=== PATIENT | female | born 1945 | race Caucasian/White ===

== ENCOUNTER → 2017-05-04 | Outpatient (CLI) | payer OTHER ==
[2015-02-18 11:59] VITALS: BP 140/65
--- NOTE | 2017-05-04 14:36 | MG ---
HISTORY: Bilateral breast carcinoma status post lumpectomy Bilateral digital diagnostic mammography with CAD. Comparison: Multiple previous exams dating back to August 22, 2013 FINDINGS: Bilateral CC and MLO projections of the right and left breast were obtained. Heterogeneously dense fibroglandular tissue is seen to be present without significant interval change. No new or developi ng suspicious architectural distortion, mass or clustered microcalcifications can be observed to sug gest malignancy. Stable lumpectomy scars are noted. No skin thickening or nipple retraction is appr eciated. No pathological lymphadenopathy can be identified. Benign-appearing calcifications are no paola within the right and left breast. IMPRESSION: NO RADIOGRAPHIC EVIDENCE OF MALIGNANCY. ACR CATEGORY 2 - benign findings. FOLLOW-UP EXAM 1 YEAR. Diagnostic CAD was utilized and reviewed. * 0 (ZERO) - ASSESSMENT INCOMPLETE; ADDITIONAL IMAGING IS NEEDED. * 1/1 (ONE) - NEGATIVE. * 2/II (TWO) - BENIGN FINDINGS. * 3/III (THREE) - PROBABLY BENIGN FINDING; SHORT INTERVAL FOLLOW-UP SUGGESTED. * 4/IV (FOUR) - SUSPICIOUS ABNORMALITY; BIOPSY SHOULD BE CONSIDERED. * 5/V (FIVE) - HIGHLY SUSPICIOUS OF MALIGNANCY; BIOPSY SHOULD BE PERFORMED. A NEGATIVE X-RAY REPORT SHOULD NOT DELAY BIOPSY IF A DOMINANT OR CLINICALLY SUSPICIOUS MASS IS PRESENT; 4 TO 8 PERCENT OF CANCERS ARE NOT IDENTIFIED BY X-RAY. A NEG ATIVE REPORT MAY REINFORCE THE CLINICAL IMPRESSION. ADENOSIS AND DENSE BREASTS MAY OBSCURE AN UNDER LYING NEOPLASM. Reported By:
== END ==
LOC: RAD 13:35
PROVIDERS: ATTEND Nurse Practitioner Family
DX: Z85.3 Personal history of malignant neoplasm of breast (principal)
CPT/HCPCS: 77066

== ENCOUNTER 2017-05-11 08:57 | Day surgery (SDC) | payer OTHER ==
[2017-05-11] MEDS ORDERED: D5 LR 1000 ML 1,000 ML IV ONE (09:12)
[2017-05-11] MEDS ORDERED: DIPRIVAN VIAL 20 ML ONE (10:47)
[2017-05-11 11:28] VITALS: BP 120/62
== END 2017-05-11 11:25 | disposition home or self-care (01) ==
LOC: SURG1 08:57
PROVIDERS: ATTEND Internal Medicine Gastroenterology
PROC: 0DB68ZX Excision of Stomach, Via Natural or Artificial Opening Endoscopic, Diagnostic (ICD-10-PCS; principal; 2017-05-11 12:15)
PROC: 0DB88ZX Excision of Small Intestine, Via Natural or Artificial Opening Endoscopic, Diagnostic (ICD-10-PCS; principal; 2017-05-11 12:15)
PROC: 0DJ08ZZ Inspection of Upper Intestinal Tract, Via Natural or Artificial Opening Endoscopic (ICD-10-PCS; principal; 2017-05-11 12:15)
PROC: 0D757ZZ Dilation of Esophagus, Via Natural or Artificial Opening (ICD-10-PCS; principal; 2017-05-11 12:15)
DX: R13.19 Other dysphagia (principal); R10.13 Epigastric pain; R11.2 Nausea with vomiting, unspecified; K21.9 Gastro-esophageal reflux disease without esophagitis; K25.9 Gastric ulcer, unspecified as acute or chronic, without hemorrhage or perforation; K29.60 Other gastritis without bleeding; K20.8 Other esophagitis; K22.2 Esophageal obstruction; K22.4 Dyskinesia of esophagus
CPT/HCPCS: 99100; A4217; J3490; J7120

== ENCOUNTER → 2017-09-19 | Outpatient (CLI) | payer OTHER ==
[2017-09-19 10:02] LABS: ALANINE AMINOTRANSFERASE 39 Units/L (12-78); ALBUMIN 3.7 g/dL (3.4-5.0); ALKALINE PHOSPHATASE 69 Units/L (46-116); ASPARTATE AMINO TRANSFERASE 22 Units/L (15-37); BLOOD UREA NITROGEN 35 mg/dL (7-18); CALCIUM 9.1 mg/dL (8.5-10.1); CARBON DIOXIDE 28.5 mmol/L (21-32); CHLORIDE 107 mmol/L (98-107); COR NA(FOR HYPERGLY) 145 mmol/L (136-145); CREATININE 1.12 mg/dL (0.55-1.02); SODIUM 143 mmol/L (136-145); eGFR BLACK RACES > 60 (>60); eGFR NON BLACK RACES 51 (>60)
[2017-09-19 10:12] LABS: BASOPHILS % (AUTO) 0.8 % (0.2-1.0); EOSINOPHILS # (AUTO) 1.4 x10^3/uL (0.0-0.2); HEMATOCRIT 29.1 % (36.0-47.0); HEMOGLOBIN 9.8 g/dL (12.0-16.0); LYMPHOCYTES # (AUTO) 1.2 X10^3/uL (1.3-2.9); LYMPHOCYTES % (AUTO) 19.5 % (21.0-51.0); MEAN CORPUSCULAR HEMOGLOBIN 31.6 pg (27.0-34.0); MEAN CORPUSCULAR HGB CONC 33.5 g/dL (33.0-35.0); MEAN CORPUSCULAR VOLUME 94.3 fL (80.0-100.0); MEAN PLATELET VOLUME 9.9 fL (7.4-11.0); MONOCYTES # (AUTO) 0.3 x10^3/uL (0.3-0.8); MONOCYTES % (AUTO) 4.3 % (0.0-13.0); NEUTROPHILS # (AUTO) 3.2 x10^3/uL (2.2-4.8); NEUTROPHILS % (AUTO) 52.4 % (42.0-75.0); PLATELET COUNT 163 X10^3/uL (150.0-450.0); RED BLOOD COUNT 3.09 X10^6/uL (3.5-5.4); RED CELL DISTRIBUTION WIDTH 14.4 % (11.6-16.5)
[2017-09-19 10:17] LABS: IRON 71 ug/dL (50-175); TOTAL IRON BINDING CAPACITY 446 ug/dL (250-450)
[2017-09-19 10:41] LABS: PLATELET MORPHOLOGY COMMENT NORMAL (NORMAL)
== END ==
LOC: LAB 09:01
PROVIDERS: ATTEND Internal Medicine Hematology & Oncology
DX: C50.112 Malignant neoplasm of central portion of left female breast (principal); D64.9 Anemia, unspecified; E55.9 Vitamin D deficiency, unspecified
CPT/HCPCS: 36415; 80053; 82306; 82728; 83540; 83550; 85025

== ENCOUNTER → 2017-09-20 | Outpatient (CLI) | payer OTHER ==
[2017-09-20 10:00] LABS: BASOPHILS # (AUTO) 0.1 X10^3/uL (0.0-0.1); BASOPHILS % (AUTO) 0.9 % (0.2-1.0); EOSINOPHILS # (AUTO) 1.5 x10^3/uL (0.0-0.2); EOSINOPHILS % (AUTO) 23.7 % (0.9-2.9); HEMATOCRIT 31.3 % (36.0-47.0); HEMOGLOBIN 10.4 g/dL (12.0-16.0); LYMPHOCYTES # (AUTO) 1.2 X10^3/uL (1.3-2.9); LYMPHOCYTES % (AUTO) 20.1 % (21.0-51.0); MEAN CORPUSCULAR HEMOGLOBIN 31.4 pg (27.0-34.0); MEAN CORPUSCULAR HGB CONC 33.2 g/dL (33.0-35.0); MEAN CORPUSCULAR VOLUME 94.4 fL (80.0-100.0); MEAN PLATELET VOLUME 9.7 fL (7.4-11.0); MONOCYTES # (AUTO) 0.2 x10^3/uL (0.3-0.8); MONOCYTES % (AUTO) 3.8 % (0.0-13.0); NEUTROPHILS # (AUTO) 3.2 x10^3/uL (2.2-4.8); NEUTROPHILS % (AUTO) 51.5 % (42.0-75.0); PLATELET COUNT 181 X10^3/uL (150.0-450.0); RED BLOOD COUNT 3.31 X10^6/uL (3.5-5.4); RED CELL DISTRIBUTION WIDTH 14.6 % (11.6-16.5); WHITE BLOOD COUNT 6.2 X10^3/uL (3.6-10.0)
[2017-09-20 10:01] LABS: APPEARANCE,URINE HAZY (CLEAR); BACTERIA,URINE TRACE /HPF (NEGATIVE); BILIRUBIN,URINE NEGATIVE (NEGATIVE); BLOOD/HEMOGLOBIN,URINE NEGATIVE (NEGATIVE); COLOR,URINE YELLOW (YELLOW); GLUCOSE, URINE 1+ (NEGATIVE); KETONES,URINE NEGATIVE (NEGATIVE); LEUKOCYTE ESTERASE ,URINE 2+ (NEGATIVE); NITRITES,URINE NEGATIVE (NEGATIVE); PH,URINE 6.5 (5.0 - 8.0); PROTEIN,URINE 1+ (NEGATIVE); RBC,URINE 0-2 /HPF (NEGATIVE); SQUAMOUS EPITHELIAL CELL,UR FEW /HPF (NEGATIVE); UROBILINOGEN,URINE NORMAL (NORMAL)
[2017-09-20 10:07] LABS: ALANINE AMINOTRANSFERASE 40 Units/L (12-78); ALBUMIN 4.2 g/dL (3.4-5.0); ALKALINE PHOSPHATASE 75 Units/L (46-116); ASPARTATE AMINO TRANSFERASE 24 Units/L (15-37); BLOOD UREA NITROGEN 29 mg/dL (7-18); CALCIUM 9.3 mg/dL (8.5-10.1); CHLORIDE 105 mmol/L (98-107); CHOL/HDL RATIO 5.4 (0.0-5.0); CHOLESTEROL 200 mg/dL (0-200); COR NA(FOR HYPERGLY) 144 mmol/L (136-145); CREATININE 0.93 mg/dL (0.55-1.02); CREATININE,URINE 70.79 mg/dL (30-125); HDL CHOLESTEROL 37 mg/dL (40-60); PHOSPHORUS 3.9 mg/dL (2.6-4.7); SODIUM 141 mmol/L (136-145); TOTAL PROTEIN 8.1 g/dL (6.4-8.2); TRIGLYCERIDES 194 mg/dL (0-150); eGFR BLACK RACES > 60 (>60); eGFR NON BLACK RACES > 60 (>60)
[2017-09-20 10:34] LABS: PLATELET MORPHOLOGY COMMENT NORMAL (NORMAL)
--- NOTE | 2017-09-22 11:16 | US ---
HISTORY: Abnormal renal function test Study: Renal ultrasound: Multiplanar ultrasonographic examination of the kidneys was performed Comparison: None Findings: Overall examination of the kidneys reveal them to be of normal size and echogenicity. There is mild focal cortical scarring in both kidneys. No evidence of hydronephrosis is noted. Right kidney: 10.1 cm in length by 4.8 x 4.7 cm. There is what appears to be an intra-cortical simp le cyst measuring 17 mm in maximum dimension. Left kidney: 11.3 cm in length by 4.7 x 4.9 cm. There appear to be 2 cystic structures, 1 inferiorl y located that appears to be mildly complex measuring 2.3 x 1.7 by 3.0 cm. The other measures 3.5 x 1.6 x 2.7 cm. Both of these appear to be mildly complex. Short-term follow-up is recommended. IMPRESSION: 1. There appear to be 2 mildly complex predominantly anechoic structures in the left kidney, most li roque mildly complex cyst. Further evaluation with follow-up in 3 months is recommended. If there is clinical concern MRI or CT scan without contrast may be of assistance. 2. Simple appearing cyst in the right kidney. 3. Mild focal cortical scarring in both kidneys. Reported By:
[2017-09-24 07:05] LABS: PARATHYROID HORMONE INT 24 pg/mL (15-65)
[2017-09-24 07:06] LABS: ANTI-NUCLEAR ANTIBODY TEST None Detected (None Detected); VITAMIN D 25 OH 34 ng/mL (30-80)
== END | disposition home or self-care (01) | DRG 642 ==
LOC: RAD 09:14
PROVIDERS: ATTEND Internal Medicine Nephrology
DX: E78.4 Other hyperlipidemia (principal); E11.9 Type 2 diabetes mellitus without complications; R94.4 Abnormal results of kidney function studies; I10 Essential (primary) hypertension; N28.1 Cyst of kidney, acquired
CPT/HCPCS: 36415; 76770; 80053; 80061; 81001; 82306; 82570; 83516; 83970; 84100; 84157; 85025; 86021; 86308

== ENCOUNTER 2017-09-21 07:26 | Day surgery (SDC) | payer OTHER ==
[2017-09-21] MEDS ORDERED: D5 LR 1000 ML 1,000 ML IV ONE (07:33)
[2017-09-21] MEDS ORDERED: DIPRIVAN VIAL 20 ML ONE (08:51)
[2017-09-21 09:39] VITALS: BP 120/60
== END 2017-09-21 09:40 | disposition home or self-care (01) ==
LOC: SURG1 07:26
PROVIDERS: ATTEND Internal Medicine Gastroenterology
PROC: 0D757ZZ Dilation of Esophagus, Via Natural or Artificial Opening (ICD-10-PCS; principal; 2017-09-21 12:45)
PROC: 0DB68ZX Excision of Stomach, Via Natural or Artificial Opening Endoscopic, Diagnostic (ICD-10-PCS; principal; 2017-09-21 12:45)
PROC: 0DJ08ZZ Inspection of Upper Intestinal Tract, Via Natural or Artificial Opening Endoscopic (ICD-10-PCS; principal; 2017-09-21 12:45)
DX: R10.13 Epigastric pain (principal); R13.19 Other dysphagia; K25.9 Gastric ulcer, unspecified as acute or chronic, without hemorrhage or perforation; K22.2 Esophageal obstruction; K22.4 Dyskinesia of esophagus; K29.60 Other gastritis without bleeding; K21.9 Gastro-esophageal reflux disease without esophagitis
CPT/HCPCS: 99100; A4217; J3490; J7120

== ENCOUNTER → 2017-10-23 | Outpatient (CLI) | payer OTHER ==
[2017-10-23 08:20] LABS: BASOPHILS # (AUTO) 0.1 X10^3/uL (0.0-0.1); BASOPHILS % (AUTO) 0.8 % (0.2-1.0); EOSINOPHILS # (AUTO) 1.9 x10^3/uL (0.0-0.2); EOSINOPHILS % (AUTO) 23.9 % (0.9-2.9); HEMATOCRIT 34.1 % (36.0-47.0); HEMOGLOBIN 11.2 g/dL (12.0-16.0); LYMPHOCYTES # (AUTO) 1.7 X10^3/uL (1.3-2.9); LYMPHOCYTES % (AUTO) 22.4 % (21.0-51.0); MEAN CORPUSCULAR HEMOGLOBIN 30.7 pg (27.0-34.0); MEAN CORPUSCULAR HGB CONC 32.7 g/dL (33.0-35.0); MEAN CORPUSCULAR VOLUME 93.9 fL (80.0-100.0); MONOCYTES # (AUTO) 0.3 x10^3/uL (0.3-0.8); MONOCYTES % (AUTO) 4.4 % (0.0-13.0); NEUTROPHILS # (AUTO) 3.8 x10^3/uL (2.2-4.8); NEUTROPHILS % (AUTO) 48.5 % (42.0-75.0); PLATELET COUNT 182 X10^3/uL (150.0-450.0); RED BLOOD COUNT 3.63 X10^6/uL (3.5-5.4); RED CELL DISTRIBUTION WIDTH 14.2 % (11.6-16.5); WHITE BLOOD COUNT 7.8 X10^3/uL (3.6-10.0)
[2017-10-23 08:50] LABS: BAND NEUTROPHILS % 1 % (0-10); PLATELET MORPHOLOGY COMMENT NORMAL (NORMAL)
== END ==
LOC: LAB 07:52
PROVIDERS: ATTEND Internal Medicine Hematology & Oncology
DX: C50.112 Malignant neoplasm of central portion of left female breast (principal)
CPT/HCPCS: 36415; 85025

== ENCOUNTER → 2018-01-11 | Outpatient (CLI) | payer OTHER, MEDICAID ==
--- NOTE | 2018-01-11 10:24 | RAD ---
STUDY: CHEST, TWO VIEWS History: Shortness of breath. Comparison: March 30, 2015. Findings: The trachea is midline. The lungs are clear of consolidation, significant infiltrate, effusion, or pn eumothorax. The cardiac silhouette, mediastinum and osseous structures are unremarkable. Several cheko gical clips project over the lower neck and mediastinum. IMPRESSION: 1. No evidence of acute cardiopulmonary abnormality. Reported By:
== END ==
LOC: RAD 09:50
PROVIDERS: ATTEND Nurse Practitioner Family
DX: R06.02 Shortness of breath (principal); J43.8 Other emphysema
CPT/HCPCS: 71046

== ENCOUNTER → 2018-01-17 | Outpatient (CLI) | payer OTHER, MEDICAID ==
--- NOTE | 2018-01-17 10:28 | US ---
HISTORY: Renal cysts. History of breast cancer. Study: Renal ultrasound: Multiplanar ultrasonographic examination of the kidneys urinary bladder wa s performed. Comparison: 10/21/2016 Findings: Overall examination of the kidneys reveal them to be of normal echogenicity and echotexture as well a s size. There are several cysts seen within both kidneys. No solid masses are identified. There is mild focal cortical scarring involving both kidneys. Right kidney: 11.5 cm in length by 5.2 x 7.5 cm. There appears to be a simple cortical cyst involvi ng the right kidney measuring approximately 14 mm in maximum dimension. There appears to be a 2nd me asuring approximately 14 mm as well. Left kidney: 11.2 cm in length by 6.4 x 7.4 cm. There are a couple of cysts present. There also ap pears to be dilated calices. This is not evident on the prior examination. One cyst measures approx imately 28 mm in maximum dimension. The other cyst measures approximately 3 cm in maximum dimension. The urinary bladder as visualized is normal. IMPRESSION: 1. There are simple cysts seen in both kidneys. 2. There appears to been interval development of caliectasis in the left kidney versus markedly hypo echoic appearing pyramids. Follow-up CT of the abdomen using renal protocol is recommended. Reported By:
== END ==
LOC: RAD 08:56
PROVIDERS: ATTEND Nurse Practitioner Family
DX: R93.421 Abnormal radiologic findings on diagnostic imaging of right kidney (principal); R93.422 Abnormal radiologic findings on diagnostic imaging of left kidney
CPT/HCPCS: 76770

== ENCOUNTER 2019-08-07 16:08 | Inpatient (IN) ==
[2019-08-07] MEDS ORDERED: DUONEB 0.5 MG/3 MG NEB PRN (19:14)
[2019-08-07] MEDS ORDERED: ZOFRAN TAB 4 MG PO PRN (19:14)
[2019-08-07 19:48] LABS: ALBUMIN 3.1 g/dL (3.4-5.0); BASOPHILS % (AUTO) 0.4 % (0.2-1.0); CALCIUM 7.9 mg/dL (8.5-10.1); CARBON DIOXIDE 27.7 mmol/L (21-32); COR CA(FOR HYPOALB) 8.6 mg/dL (8.5-10.1); CREATININE 1.89 mg/dL (0.55-1.02); EOSINOPHILS % (AUTO) 14.2 % (0.9-2.9); HEMATOCRIT 20.1 % (36.0-47.0); LYMPHOCYTES % (AUTO) 14.5 % (21.0-51.0); MEAN CORPUSCULAR HEMOGLOBIN 32.1 pg (27.0-34.0); MEAN CORPUSCULAR HGB CONC 33.7 g/dL (33.0-35.0); MEAN CORPUSCULAR VOLUME 95.3 fL (80.0-100.0); MEAN PLATELET VOLUME 9.3 fL (7.4-11.0); MONOCYTES # (AUTO) 0.5 x10^3/uL (0.3-0.8); NEUTROPHILS # (AUTO) 4.4 x10^3/uL (2.2-4.8); NEUTROPHILS % (AUTO) 63.9 % (42.0-75.0); PLATELET COUNT 107 X10^3/uL (150.0-450.0); RED BLOOD COUNT 2.11 X10^6/uL (3.5-5.4); RED CELL DISTRIBUTION WIDTH 15.3 % (11.6-16.5); TOTAL PROTEIN 6.5 g/dL (6.4-8.2); WHITE BLOOD COUNT 6.8 X10^3/uL (3.6-10.0)
[2019-08-07 19:56] LABS: HEMOGLOBIN 6.8 g/dL (12.0-16.0)
[2019-08-07] MEDS ORDERED: STERILE WATER IRRIGATION IR ONE (19:59)
[2019-08-07 20:17] VITALS: BMI 28.5
[2019-08-07] MEDS ORDERED: NS 250 ML IV 250 ML IV ONE (21:35)
[2019-08-07] MEDS ORDERED: AMBIEN ONE (21:54)
[2019-08-07] MEDS: LASIX PO SCH (22:02)
[2019-08-07] MEDS: FOLIC ACID TAB 1 MG PO SCH (22:02)
[2019-08-07] MEDS: COLACE CAP 100 MG PO SCH (22:02)
[2019-08-07] MEDS: REQUIP PO SCH (22:03)
[2019-08-07] MEDS: HumuLIN R SC PRN (22:03)
[2019-08-07] MEDS: MILK OF MAGNESIA PO SCH (22:03)
[2019-08-07] MEDS: PROTONIX INJ 40 MG VIAL IVP SCH (22:03)
[2019-08-07] MEDS: PERCOCET TAB 5/325 MG PO PRN (22:04)
[2019-08-07] MEDS: AMBIEN PO PRN (22:06)
[2019-08-07] MEDS: NEURONTIN CAP 100 MG PO SCH (22:06)
[2019-08-08 05:00] LABS: BASOPHILS # (AUTO) 0.1 X10^3/uL (0.0-0.1); BASOPHILS % (AUTO) 0.9 % (0.2-1.0); EOSINOPHILS # (AUTO) 1.1 x10^3/uL (0.0-0.2); EOSINOPHILS % (AUTO) 14.1 % (0.9-2.9); HEMATOCRIT 26.3 % (36.0-47.0); HEMOGLOBIN 8.9 g/dL (12.0-16.0); LYMPHOCYTES % (AUTO) 12.1 % (21.0-51.0); MEAN CORPUSCULAR HEMOGLOBIN 30.7 pg (27.0-34.0); MEAN CORPUSCULAR HGB CONC 33.7 g/dL (33.0-35.0); MONOCYTES # (AUTO) 0.5 x10^3/uL (0.3-0.8); MONOCYTES % (AUTO) 6.2 % (0.0-13.0); NEUTROPHILS # (AUTO) 5.3 x10^3/uL (2.2-4.8); NEUTROPHILS % (AUTO) 66.7 % (42.0-75.0); PLATELET COUNT 103 X10^3/uL (150.0-450.0); RED BLOOD COUNT 2.89 X10^6/uL (3.5-5.4); RED CELL DISTRIBUTION WIDTH 16.8 % (11.6-16.5); WHITE BLOOD COUNT 7.9 X10^3/uL (3.6-10.0)
[2019-08-08] MEDS: PERCOCET TAB 5/325 MG PO PRN ×5 (05:12→21:48)
[2019-08-08] MEDS: NEURONTIN CAP 100 MG PO SCH ×3 (05:12→21:48)
[2019-08-08 05:14] LABS: ALBUMIN 3.1 g/dL (3.4-5.0); CALCIUM 7.9 mg/dL (8.5-10.1); CARBON DIOXIDE 25.8 mmol/L (21-32); COR CA(FOR HYPOALB) 8.6 mg/dL (8.5-10.1); CREATININE 1.8 mg/dL (0.55-1.02); TOTAL PROTEIN 6.5 g/dL (6.4-8.2)
[2019-08-08] MEDS: HumuLIN R SC PRN ×4 (05:36→21:50)
[2019-08-08 06:14] LABS: BILIRUBIN,URINE NEGATIVE (NEGATIVE); BLOOD/HEMOGLOBIN,URINE NEGATIVE (NEGATIVE); GLUCOSE, URINE 4+ (NEGATIVE); KETONES,URINE NEGATIVE (NEGATIVE); LEUKOCYTE ESTERASE ,URINE 1+ (NEGATIVE); NITRITES,URINE NEGATIVE (NEGATIVE); PROTEIN,URINE NEGATIVE (NEGATIVE); UROBILINOGEN,URINE NORMAL (NORMAL)
[2019-08-08 06:16] LABS: APPEARANCE,URINE CLEAR (CLEAR); COLOR,URINE YELLOW (YELLOW)
[2019-08-08] MEDS: LASIX PO SCH ×2 (06:17→16:56)
[2019-08-08 06:19] LABS: BACTERIA,URINE NEGATIVE /HPF (NEGATIVE); RBC,URINE NONE SEEN /HPF (0-3); RENAL EPITHELIAL CELLS,URINE RARE /HPF (NEGATIVE); SQUAMOUS EPITHELIAL CELL,UR RARE /HPF (NEGATIVE)
[2019-08-08] MEDS: MILK OF MAGNESIA PO SCH ×2 (09:25→21:47)
[2019-08-08] MEDS: ZESTORETIC 10/ 12.5MG PO SCH (09:25)
[2019-08-08] MEDS: MIRALAX POWDER (1 DOSE 17 G) PO SCH (09:25)
[2019-08-08] MEDS: FOLIC ACID TAB 1 MG PO SCH ×2 (09:25→21:47)
[2019-08-08] MEDS: ARTIFICIAL TEARS DROPS AFFEYE SCH (09:35)
[2019-08-08 11:47] LABS: HEMATOCRIT 25.9 % (36.0-47.0); HEMOGLOBIN 8.8 g/dL (12.0-16.0)
[2019-08-08] MEDS ORDERED: LOVENOX INJ 30 MG SYR SC SCH (13:00)
--- NOTE | 2019-08-08 16:30 | DR.H&P ---
H&P - History & Physical for Day of: H&P Date: 08/07/19 - Chief Complaint Chief Complaint: STATUS POST MASTECTOMY, SEVERE WEAKNESS, SHORTNESS OF BREATH - History of Present Illness History of Present Illness: IS A 74 YEAR OLD PATIENT OF OURS WHO PRESENTED TO THE HOSPITAL A DIRECT ADMISSION TODAY FOR SEVERE WEAKNESS AND SHORTNESS OF BREATH FOLLOWING A RIGHT MASTECTOMY AND SPLEEN BIOPSY ONE DAY PRIOR. SHE HAS A PMH OF CAD, CHF, HYPERLIPIDEMIA, HTN, PULMONARY HTN, COPD, SLEEP APNEA, ASTHMA, GERD, PUD, RENAL DISEASE, DIABETES, HTN, GOITER, ANEMIA, AND BREAST CANCER. SHE HAD A LEFT BREAST PARTIAL MASTECTOMY FIVE YEARS AGO AND A RIGHT MASTECTOMY YESTERDAY IN [place], [place]. SHE HAS A SERENA DRAIN IN PLACE. ON ARRIVAL TO THE HOSPITAL, VITALS WERE 98.9-116-22-96%-149/65. LABS WERE OBTAINED. ABNORMAL LAB VALUES INCLUDE THE FOLLOWING: RBC 2.11, RBC 6.8, HCT 20.1, PLT COUNT 107, BUN 40, CREATININE 1.89, GLUCOSE 425, CALCIUM 7.9, ALBUMIN 3.1. WE WILL TYPE, CROSSMATCH, AND TRANSFER TWO UNITS OF PACKED RED BLOOD CELLS. OTHERWISE, WE WILL REVIEW HER HOME MEDICATIONS, FOLLOW UP WITH AM LABS AND CONTINUE TO MONITOR. - Past Medical History Past Medical History: Anemia, Arthritis, COPD, Coronary Artery Disease, Diabetes, Dyslipidemia, GERD, Hypertension, Hypothyroidism, PUD, Sleep Apnea Additional Medical History: Hx Breast Ca, Restless Leg Syndrome, Pulmonary HTN, Hx Goiter - Past Surgical History Surgical History: Cholecystectomy, Mastectomy, Thyroidectomy Additional Surgical History: Hx Mastectomy, Colonoscopy - Family History Family Medical History: Diabetes Mellitus, Cancer, Heart Failure, Hypertension - Social History Alcohol Use: None Drug Use: None Prescription drug monitoring program results: PDMP was not reviewed - Medications Home Medications: No Known Drug Allergies Allergy (Verified 09/21/17 07:49) CONTINUE taking the following medications albuterol sulfate 2.5 mg INHALATION Q6H PRN 08/07/19 [History] albuterol sulfate [Ventolin HFA] 2 puff INHALATION Q4HR PRN 08/07/19 [History] anastrozole [Arimidex] 1 mg PO DAILY 08/07/19 [History] atorvastatin [Lipitor] 40 mg PO DAILY 08/07/19 [History] apedlobnhm-ouehuud-mltxpjfu 1 cap PO BID PRN 08/07/19 [History] cephalexin [Keflex] 250 mg PO HS 08/07/19 [History] clonazepam [Klonopin] 0.5 mg PO BID PRN 08/07/19 [History] cyanocobalamin (vitamin B-12) 1,000 mcg IM MONTHLY 08/07/19 [History] dextran 70-hypromellose [Artificial Tears (PF)] 2 drp OPHTHALMIC (EYE) DAILY 08/07/19 [History] ergocalciferol (vitamin D2) [Vitamin D2] 50,000 unit PO QWEEK 08/07/19 [History] fenofibrate nanocrystallized [Triglide] 160 mg PO QHS 08/07/19 [History] ferrous sulfate 325 mg PO BID 08/07/19 [History] fluticasone furoate-vilanterol [Breo Ellipta] 1 inh INHALATION BID 08/07/19 [History] furosemide [Lasix] 20 mg PO BID 08/07/19 [History] gabapentin [Neurontin] 100 mg PO TID 08/07/19 [History] ipratropium-albuterol 3 ml INHALATION Q6H PRN 08/07/19 [History] levothyroxine 175 mcg PO DAILY 08/07/19 [History] lisinopril-hydrochlorothiazide 1 tab PO DAILY 08/07/19 [History] metformin [Glucophage] 1,000 mg PO BID 08/07/19 [History] ondansetron HCl [Zofran] 8 mg PO Q8H PRN 08/07/19 [History] oxycodone-acetaminophen [Percocet] 1 tab PO Q4H PRN 08/07/19 [History] pantoprazole [Protonix] 40 mg PO QHS 08/07/19 [History] polyethylene glycol 3350 17 g PO DAILY 08/07/19 [History] promethazine 25 mg PO Q6H PRN 08/07/19 [History] qqctbfmeuuenkma-dqfkflf-JM 10 ml PO Q6H PRN 08/07/19 [History] ropinirole 0.5 mg PO HS 08/07/19 [History] sennosides-docusate sodium [Senna with Docusate Sodium] 1 tab PO DAILY 08/07/19 [History] sitagliptin [Januvia] 50 mg PO DAILY 08/07/19 [History] vitamin D3-folic acid [Folvite-D] 1 cap PO BID 08/07/19 [History] zolpidem 10 mg PO QHS PRN 08/07/19 [History] - Review of Systems Constitutional: Weakness Eyes: No Symptoms Reported ENT: No Symptoms Reported Respiratory: Shortness of Breath, SOB with Excertion Cardiovascular: No Symptoms Reported Gastrointestinal: Abdominal Pain Genitourinary: No Symptoms Reported Musculoskeletal: No Symptoms Reported Skin: Wound (RIGHT SIDE BREAST, STATUS POST MASTECTOMY. SERENA DRAIN IN PLACE ) Neurological: Weakness - Physical Exam Vital Signs: Temperature 98.6 F Pulse Rate [Left Radial] 92 Pulse Rate 91 Respiratory Rate 20 Blood Pressure [Right Arm] 149/65 Blood Pressure [Left Arm] 118/60 Blood Pressure 163/68 O2 Sat by Pulse Oximetry 98 Oriented: Normal Eyes: Normal Ear: Normal Nose: Normal Throat: Normal Respiratory: Diminished Throughout Cardiovascular: Tachycardia : Normal Auscultation: Bowel Sounds: Normal Palpation: Normal Tenderness: Suprapubic, Mild, Other (DISTENTION ). negative: Rebound, Guarding, Rigidity Skin: Red, Tender, Wound (RIGHT SIDE BREAST, STATUS POST MASTECTOMY. SERENA DRAIN IN PLACE ) Musculoskeletal: Normal Psychiatric: Normal Mood Description: Calm Affect: Normal Speech Pattern: Clear - Assessment/Plan (1) Anemia Qualifiers: Anemia type: iron deficiency Iron deficiency anemia type: chronic blood loss Qualified Code(s): D50.0 - Iron deficiency anemia secondary to blood loss (chronic) Status: Acute Plan: TRANSFUSE 2 UNITS PRBC (2) Shortness of breath Status: Acute (3) Status post mastectomy Qualifiers: Laterality: right Qualified Code(s): Z90.11 - Acquired absence of right breast and nipple Status: Acute Plan: SERENA DRAIN, CONTINUE TO MONITOR (4) Diabetes mellitus, type 2 Qualifiers: Diabetes mellitus fdc insulin use: with terminal press operator use Diabetes mellitus complication status: with other specified complication Qualified Code(s): E11.69 - Type 2 diabetes mellitus with other specified complication; Z 79.4 - intermediate (current) use of insulin Status: Chronic Plan: HUMULIN R SLIDING SCALE, CONTINUE TO MONITOR - Review Patient was examined?: Yes - Allergies Allergies/Adverse Reactions: Allergies Allergy/AdvReac Type Severity Reaction Status Date / Time No Known Drug Allergies Allergy Verified 09/21/17 07:49
[2019-08-08] MEDS: SYNTHROID 175 mcg TAB PO SCH (16:56)
[2019-08-08 17:24] LABS: HEMATOCRIT 26.3 % (36.0-47.0)
[2019-08-08] MEDS: REQUIP PO SCH (21:47)
[2019-08-08] MEDS: COLACE CAP 100 MG PO SCH (21:48)
[2019-08-08] MEDS: AMBIEN PO PRN (21:49)
[2019-08-08] MEDS: PROTONIX INJ 40 MG VIAL IVP SCH (21:49)
[2019-08-08 23:27] LABS: HEMATOCRIT 24.5 % (36.0-47.0); HEMOGLOBIN 8.6 g/dL (12.0-16.0)
[2019-08-09] MEDS: HumuLIN R SC PRN ×4 (02:08→21:26)
[2019-08-09] MEDS: NEURONTIN CAP 100 MG PO SCH ×3 (06:12→21:21)
[2019-08-09] MEDS: LASIX PO SCH ×2 (06:13→16:50)
--- NOTE | 2019-08-09 06:23 | RAD ---
HISTORY: Abdominal distension Study: Two views of the abdomen Comparison: CT 01/26/2018 FINDINGS/IMPRESSION: Bowel gas pattern is nonspecific and nonobstructive. No dilated intestinal loops are seen. There is scattered retained stool in the colon. There are chronic degenerative changes of the lumbosacral spine and hips. Cholecystectomy clips are noted. Reported By:
[2019-08-09 06:24] LABS: BASOPHILS % (AUTO) 0.6 % (0.2-1.0); EOSINOPHILS % (AUTO) 14.9 % (0.9-2.9); HEMOGLOBIN 8.6 g/dL (12.0-16.0); LYMPHOCYTES # (AUTO) 1.2 X10^3/uL (1.3-2.9); LYMPHOCYTES % (AUTO) 17.4 % (21.0-51.0); MEAN CORPUSCULAR HEMOGLOBIN 31.3 pg (27.0-34.0); MEAN CORPUSCULAR HGB CONC 34.4 g/dL (33.0-35.0); MEAN CORPUSCULAR VOLUME 91.1 fL (80.0-100.0); MEAN PLATELET VOLUME 9.2 fL (7.4-11.0); MONOCYTES # (AUTO) 0.5 x10^3/uL (0.3-0.8); MONOCYTES % (AUTO) 7.6 % (0.0-13.0); NEUTROPHILS % (AUTO) 59.5 % (42.0-75.0); PLATELET COUNT 120 X10^3/uL (150.0-450.0); RED BLOOD COUNT 2.74 X10^6/uL (3.5-5.4); RED CELL DISTRIBUTION WIDTH 16.5 % (11.6-16.5); WHITE BLOOD COUNT 6.7 X10^3/uL (3.6-10.0)
[2019-08-09 06:32] LABS: ALBUMIN 3.1 g/dL (3.4-5.0); CALCIUM 8.3 mg/dL (8.5-10.1); CARBON DIOXIDE 27.9 mmol/L (21-32); CREATININE 1.84 mg/dL (0.55-1.02); TOTAL PROTEIN 6.6 g/dL (6.4-8.2)
[2019-08-09] MEDS: MIRALAX POWDER (1 DOSE 17 G) PO SCH (08:21)
[2019-08-09] MEDS: MILK OF MAGNESIA PO SCH ×2 (08:22→21:19)
[2019-08-09] MEDS: FOLIC ACID TAB 1 MG PO SCH ×2 (08:22→21:19)
[2019-08-09] MEDS: ARTIFICIAL TEARS DROPS AFFEYE SCH (08:22)
[2019-08-09] MEDS: ZESTORETIC 10/ 12.5MG PO SCH (08:22)
[2019-08-09] MEDS ORDERED: KLONOPIN TAB 0.5 MG PO PRN (10:42)
[2019-08-09] MEDS ORDERED: FIORICET TAB PO PRN (10:42)
[2019-08-09] MEDS ORDERED: VITAMIN D (1.25MG) PO SCH (10:45)
[2019-08-09] MEDS ORDERED: [UNRECOGNIZED DRUG - OTHER] PO SCH (11:00)
[2019-08-09] MEDS: PERCOCET TAB 5/325 MG PO PRN ×3 (11:20→21:22)
[2019-08-09] MEDS: LEVEMIR SC SCH ×2 (11:20→21:13)
[2019-08-09] MEDS: LIPITOR TAB 40 MG PO SCH (13:37)
[2019-08-09] MEDS: TRICOR TAB 160 MG PO SCH (13:37)
[2019-08-09] MEDS: ARIMIDEX PO SCH (13:37)
[2019-08-09] MEDS: ARTIFICIAL TEARS DROPS OP SCH ×2 (13:37→17:49)
[2019-08-09] MEDS: SYNTHROID 175 mcg TAB PO SCH (16:49)
[2019-08-09] MEDS ORDERED: CEPHALEXIN 250 MG PO SCH (21:00)
[2019-08-09] MEDS: SNACK - Diabetic Appropriate PO SCH (21:09)
[2019-08-09] MEDS: KEFLEX CAP 500 MG PO SCH (21:19)
[2019-08-09] MEDS: AMBIEN PO PRN (21:19)
[2019-08-09] MEDS: COLACE CAP 100 MG PO SCH (21:20)
[2019-08-09] MEDS: REQUIP PO SCH (21:21)
[2019-08-09] MEDS: PROTONIX INJ 40 MG VIAL IVP SCH (21:23)
[2019-08-10 05:35] LABS: BASOPHILS % (AUTO) 0.3 % (0.2-1.0); EOSINOPHILS # (AUTO) 0.9 x10^3/uL (0.0-0.2); EOSINOPHILS % (AUTO) 14.8 % (0.9-2.9); HEMATOCRIT 24.8 % (36.0-47.0); HEMOGLOBIN 8.3 g/dL (12.0-16.0); LYMPHOCYTES # (AUTO) 0.9 X10^3/uL (1.3-2.9); LYMPHOCYTES % (AUTO) 15.6 % (21.0-51.0); MEAN CORPUSCULAR HEMOGLOBIN 31.2 pg (27.0-34.0); MEAN CORPUSCULAR HGB CONC 33.6 g/dL (33.0-35.0); MEAN CORPUSCULAR VOLUME 92.8 fL (80.0-100.0); MEAN PLATELET VOLUME 9.9 fL (7.4-11.0); MONOCYTES # (AUTO) 0.5 x10^3/uL (0.3-0.8); MONOCYTES % (AUTO) 8.8 % (0.0-13.0); NEUTROPHILS # (AUTO) 3.6 x10^3/uL (2.2-4.8); NEUTROPHILS % (AUTO) 60.5 % (42.0-75.0); PLATELET COUNT 118 X10^3/uL (150.0-450.0); RED BLOOD COUNT 2.67 X10^6/uL (3.5-5.4); RED CELL DISTRIBUTION WIDTH 16.3 % (11.6-16.5)
[2019-08-10] MEDS: HumuLIN R SC PRN ×4 (05:43→21:30)
[2019-08-10 05:53] LABS: CALCIUM 8.2 mg/dL (8.5-10.1); CARBON DIOXIDE 31.3 mmol/L (21-32); CREATININE 2.02 mg/dL (0.55-1.02); TOTAL PROTEIN 6.6 g/dL (6.4-8.2)
[2019-08-10] MEDS: ARTIFICIAL TEARS DROPS AFFEYE SCH (08:53)
[2019-08-10] MEDS: ARIMIDEX PO SCH (08:53)
[2019-08-10] MEDS: LIPITOR TAB 40 MG PO SCH (08:54)
[2019-08-10] MEDS: FERROUS GLUCONATE PO SCH ×2 (08:54→21:30)
[2019-08-10] MEDS: FOLIC ACID TAB 1 MG PO SCH ×2 (08:54→21:30)
[2019-08-10] MEDS: LEVEMIR SC SCH ×2 (08:55→21:32)
[2019-08-10] MEDS: ARTIFICIAL TEARS DROPS OP SCH (08:55)
[2019-08-10] MEDS: MILK OF MAGNESIA PO SCH ×2 (08:56→21:21)
[2019-08-10] MEDS: MIRALAX POWDER (1 DOSE 17 G) PO SCH (08:56)
[2019-08-10] MEDS ORDERED: SENNOSIDES DOCUSATE SODIUM PO SCH (09:00)
[2019-08-10] MEDS ORDERED: [UNRECOGNIZED DRUG - OTHER] PO SCH (09:00)
[2019-08-10] MEDS ORDERED: NS 1000 ML 1,000 ML ONE (10:32)
[2019-08-10] MEDS: PERCOCET TAB 5/325 MG PO PRN ×2 (12:37→21:31)
[2019-08-10] MEDS: NS 1000 ML 1,000 ML IV SCH (12:38)
[2019-08-10] MEDS: ROCEPHIN VIAL 1 GRAM 1 G in NS 100 ML IV + SPIKE MINIBAG* 100 ML IV SCH (12:38)
[2019-08-10] MEDS: LASIX PO SCH ×2 (17:29→23:33)
[2019-08-10] MEDS: SYNTHROID 175 mcg TAB PO SCH (17:30)
[2019-08-10] MEDS: ZESTORETIC 10/ 12.5MG PO SCH (17:31)
[2019-08-10] MEDS: SNACK - Diabetic Appropriate PO SCH (21:20)
[2019-08-10] MEDS: COLACE CAP 100 MG PO SCH (21:21)
[2019-08-10] MEDS: PROTONIX INJ 40 MG VIAL IVP SCH (21:24)
[2019-08-10] MEDS: AMBIEN PO PRN ×2 (21:29→21:32)
[2019-08-10] MEDS: REQUIP PO SCH (21:29)
[2019-08-10] MEDS: KEFLEX CAP 500 MG PO SCH (21:30)
[2019-08-11] MEDS: NS 1000 ML 1,000 ML IV SCH (01:02)
[2019-08-11 05:34] LABS: BASOPHILS % (AUTO) 0.6 % (0.2-1.0); EOSINOPHILS # (AUTO) 1.1 x10^3/uL (0.0-0.2); EOSINOPHILS % (AUTO) 18.9 % (0.9-2.9); HEMATOCRIT 25.4 % (36.0-47.0); HEMOGLOBIN 8.6 g/dL (12.0-16.0); LYMPHOCYTES # (AUTO) 1.3 X10^3/uL (1.3-2.9); LYMPHOCYTES % (AUTO) 22.5 % (21.0-51.0); MEAN CORPUSCULAR HEMOGLOBIN 31.2 pg (27.0-34.0); MEAN CORPUSCULAR HGB CONC 33.9 g/dL (33.0-35.0); MEAN CORPUSCULAR VOLUME 92.1 fL (80.0-100.0); MEAN PLATELET VOLUME 9.8 fL (7.4-11.0); MONOCYTES # (AUTO) 0.5 x10^3/uL (0.3-0.8); MONOCYTES % (AUTO) 8.1 % (0.0-13.0); NEUTROPHILS # (AUTO) 2.9 x10^3/uL (2.2-4.8); NEUTROPHILS % (AUTO) 49.9 % (42.0-75.0); PLATELET COUNT 130 X10^3/uL (150.0-450.0); RED BLOOD COUNT 2.76 X10^6/uL (3.5-5.4); RED CELL DISTRIBUTION WIDTH 16.3 % (11.6-16.5); WHITE BLOOD COUNT 5.8 X10^3/uL (3.6-10.0)
[2019-08-11 05:45] LABS: CALCIUM 8.1 mg/dL (8.5-10.1); CARBON DIOXIDE 29.3 mmol/L (21-32); COR CA(FOR HYPOALB) 8.9 mg/dL (8.5-10.1); CREATININE 1.3 mg/dL (0.55-1.02); TOTAL PROTEIN 6.7 g/dL (6.4-8.2)
[2019-08-11] MEDS: LASIX PO SCH ×2 (06:25→16:46)
[2019-08-11] MEDS: HumuLIN R SC PRN ×4 (06:26→21:30)
[2019-08-11] MEDS: ZESTORETIC 10/ 12.5MG PO SCH (08:34)
[2019-08-11] MEDS: FOLIC ACID TAB 1 MG PO SCH ×2 (08:34→21:30)
[2019-08-11] MEDS: ARIMIDEX PO SCH (08:34)
[2019-08-11] MEDS: LIPITOR TAB 40 MG PO SCH (08:35)
[2019-08-11] MEDS: FERROUS GLUCONATE PO SCH ×2 (08:35→21:30)
[2019-08-11] MEDS: JANUVIA PO SCH (08:35)
[2019-08-11] MEDS: GLUCOPHAGE PO SCH ×2 (08:37→16:46)
[2019-08-11] MEDS ORDERED: GLUCOPHAGE ONE ×2 (08:37→16:38)
[2019-08-11] MEDS: ROCEPHIN VIAL 1 GRAM 1 G in NS 100 ML IV + SPIKE MINIBAG* 100 ML IV SCH (08:38)
[2019-08-11] MEDS: LEVEMIR SC SCH ×2 (08:38→21:30)
[2019-08-11] MEDS: ARTIFICIAL TEARS DROPS AFFEYE SCH (08:40)
[2019-08-11] MEDS: MILK OF MAGNESIA PO SCH (10:26)
[2019-08-11] MEDS: MIRALAX POWDER (1 DOSE 17 G) PO SCH (10:26)
--- NOTE | 2019-08-11 10:51 | PCM.PROG ---
Progress Note - Progress Note for Day of Date of Exam: 08/09/19 - Subjective Subjective: WAS ADMITTED FOR SEVERE WEAKNESS, ANEMIA, AND SHORTNESS OF BREATH. SHE IS STATUS POST MASTECTOMY AND SPLEEN BIOPSY. TODAY, SHE IS ALERT AND ORIENTED, LYING IN BED ON MORNING ROUNDS. SHE CONTINUES WITH WEAKNESS AND SHORTNESS OF BREATH, BUT REPORTS THAT SYMPTOMS HAVE SLIGHTLY IMPROVED SINCE YESTERDAY. ON EXAMINATION, HEART IS REGULAR IN RATE AND RHYTHM. BILATERAL LUNGS ARE NOTED WITH DIMINISHED LUNG SOUNDS THROUGHOUT. ABDOMEN IS DISTENDED. SHE IS NOTED WITH NORMAL BOWEL SOUNDS IN ALL QUADRANTS. THERE IS A SERENA DRAIN IN PLACE. HER VITALS THIS MORNING ARE: 97.3-88-20-98%-133/67. LABS WERE OBTAINED. ABNORMAL LAB VALUES INCLUDE THE FOLLOWING: RC 2.89, HGB 8.9, HCT 26.3, PLT COUNT 103, POTASSIUM 5.2, BUN 47, CREATININE 1.80, GLUCOSE 332, CALCIUM 7.9, ALBUMIN 3.1. A URINE CULTURE IS PENDING. SHE IS CURRENTLY RECEIVING IV FLUIDS, KEFLEX, AND HOME MEDICATIONS WERE RESUMED. WE WILL CONTINUE WITH CURRENT PLAN OF CARE TODAY AND HAVE PHYSICAL/OCCUPATIONAL THERAPY EVALUATE PATIENT. OTHERWISE, WE WILL FOLLOW UP WITH AM LABS AND CONTINUE TO MONITOR. - Past Medical Family Social History Past Med/Fam/Surg Hx: No changes since H&P Allergies: Allergies No Known Drug Allergies Allergy (Verified 09/21/17 07:49) - Review of Systems ROS: No change since H&P - Vital Signs and I&O's Vital Signs: Temperature 98.1 F Pulse Rate [Left Radial] 80 Pulse Rate 96 Respiratory Rate 16 Blood Pressure [Right Calf] 144/65 Blood Pressure [Left Calf] 90/51 Blood Pressure [Right Arm] 149/65 Blood Pressure [Left Arm] 127/64 Blood Pressure 163/68 O2 Sat by Pulse Oximetry 99 Intake and Output: Intake & Output 08/08/19 08/09/19 08/10/19 08/11/19 11:59 11:59 11:59 11:59 Intake Total 1040 / 1040 780 / 780 1730 / 1730 1240 / 1240 Output Total 185 / 185 90 / 90 870 / 870 65 / 65 Balance 855 / 855 690 / 690 860 / 860 1175 / 1175 - Physical Exam Oriented: Normal Eyes: Normal Ear: Normal Nose: Normal Throat: Normal Respiratory: Normal Cardiovascular: Normal : Normal Auscultation: Bowel Sounds: Normal Palpation: Normal Tenderness: Diffuse, Mild Skin: Normal Musculoskeletal: Normal Psychiatric: Normal Mood Description: Calm Affect: Normal Speech Pattern: Clear, Appropriate - Laboratory and Diagnostics Result Diagrams: 08/11/19 04:30 08/11/19 04:30 Labs: 08/08/19 05:32 Urine,Clean Catch Urine Culture - Final Morganella Morganii Laboratory WBC 5.8 X10^3/uL (3.6-10.0) 08/11/19 04:30 RBC 2.76 X10^6/uL (3.5-5.4) L 08/11/19 04:30 Hgb 8.6 g/dL (12.0-16.0) L 08/11/19 04:30 Hct 25.4 % (36.0-47.0) L 08/11/19 04:30 MCV 92.1 fL (80.0-100.0) 08/11/19 04:30 MCH 31.2 pg (27.0-34.0) 08/11/19 04:30 MCHC 33.9 g/dL (33.0-35.0) 08/11/19 04:30 RDW 16.3 % (11.6-16.5) 08/11/19 04:30 Plt Count 130 X10^3/uL (150.0-450.0) L 08/11/19 04:30 MPV 9.8 fL (7.4-11.0) 08/11/19 04:30 Neut % (Auto) 49.9 % (42.0-75.0) 08/11/19 04:30 Lymph % (Auto) 22.5 % (21.0-51.0) 08/11/19 04:30 [place] % (Auto) 8.1 % (0.0-13.0) 08/11/19 04:30 Eos % (Auto) 18.9 % (0.9-2.9) H 08/11/19 04:30 Baso % (Auto) 0.6 % (0.2-1.0) 08/11/19 04:30 Neut # (Auto) 2.9 x10^3/uL (2.2-4.8) 08/11/19 04:30 Lymph # (Auto) 1.3 X10^3/uL (1.3-2.9) 08/11/19 04:30 [place] # (Auto) 0.5 x10^3/uL (0.3-0.8) 08/11/19 04:30 Eos # (Auto) 1.1 x10^3/uL (0.0-0.2) H 08/11/19 04:30 Baso # (Auto) 0.0 X10^3/uL (0.0-0.1) 08/11/19 04:30 Absolute Nucleated RBC 0.0 /100WBC 08/11/19 04:30 Sodium 137 mmol/L (136-145) 08/11/19 04:30 Corrected Sodium 142 mmol/L (136-145) 08/11/19 04:30 Potassium 4.6 mmol/L (3.5-5.1) 08/11/19 04:30 Chloride 100 mmol/L (98-107) 08/11/19 04:30 Carbon Dioxide 29.3 mmol/L (21-32) 08/11/19 04:30 BUN 47 mg/dL (7-18) H 08/11/19 04:30 Creatinine 1.30 mg/dL (0.55-1.02) H 08/11/19 04:30 Est GFR (MDRD) Af Amer 52 (>60) L 08/11/19 04:30 Est GFR (MDRD) Non-Af 43 (>60) L 08/11/19 04:30 Glucose 295 mg/dL (65-99) H 08/11/19 04:30 POC Glucose (mg/dL) 300 mg/dL (65-99) H 08/11/19 05:35 Calcium 8.1 mg/dL (8.5-10.1) L 08/11/19 04:30 Corrected Calcium 8.9 mg/dL (8.5-10.1) 08/11/19 04:30 Total Bilirubin 0.40 mg/dL (0.2-1.0) 08/11/19 04:30 AST 70 Units/L (15-37) H 08/11/19 04:30 ALT 90 Units/L (12-78) H 08/11/19 04:30 Alkaline Phosphatase 98 Units/L (46-116) 08/11/19 04:30 Total Protein 6.7 g/dL (6.4-8.2) 08/11/19 04:30 Albumin 3.0 g/dL (3.4-5.0) L 08/11/19 04:30 Globulin 3.7 g/dL (2.5-4.5) 08/11/19 04:30 Albumin/Globulin Ratio 0.8 Ratio (1.1-2.1) L 08/11/19 04:30 Specimen Type Clean catch urine 08/08/19 05:32 Urine Color Yellow (YELLOW) 08/08/19 05:32 Urine Appearance Clear (CLEAR) 08/08/19 05:32 Urine pH 5.0 (5.0 - 8.0) 08/08/19 05:32 Ur Specific [place] 1.015 (1.000-1.030) 08/08/19 05:32 Urine Protein Negative (NEGATIVE) 08/08/19 05:32 Urine Glucose (UA) 4+ (NEGATIVE) 08/08/19 05:32 Urine Ketones Negative (NEGATIVE) 08/08/19 05:32 Urine Occult Blood Negative (NEGATIVE) 08/08/19 05:32 Urine Nitrite Negative (NEGATIVE) 08/08/19 05:32 Urine Bilirubin Negative (NEGATIVE) 08/08/19 05:32 Urine Urobilinogen Normal (NORMAL) 08/08/19 05:32 Ur Leukocyte Esterase 1+ (NEGATIVE) 08/08/19 05:32 Urine RBC None seen /HPF (0-3) 08/08/19 05:32 Urine WBC 0-2 /HPF (0-5) 08/08/19 05:32 Ur Squamous Epith Cells Rare /HPF (NEGATIVE) 08/08/19 05:32 Ur Renal Epithelial Cell Rare /HPF (NEGATIVE) 08/08/19 05:32 Urine Bacteria Negative /HPF (NEGATIVE) 08/08/19 05:32 Ur Culture Indicated? No/not indicated 08/08/19 05:32 Blood Type O POSITIVE 08/11/19 00:50 Antibody Screen Negative 08/11/19 00:50 Crossmatch See Detail 08/07/19 20:15 - Plan (1) Anemia Status: Acute Qualifiers: Anemia type: iron deficiency Iron deficiency anemia type: chronic blood loss Qualified Code(s): D50.0 - Iron deficiency anemia secondary to blood loss (chronic) Plan: MONITOR H&H, CONTINUE TO MONITOR (2) Shortness of breath Status: Acute (3) Status post mastectomy Status: Acute Qualifiers: Laterality: right Qualified Code(s): Z90.11 - Acquired absence of right breast and nipple Plan: SERENA DRAIN, CONTINUE TO MONITOR
[2019-08-11] MEDS: PERCOCET TAB 5/325 MG PO PRN (11:40)
--- NOTE | 2019-08-11 13:04 | PCM.PROG ---
Progress Note - Progress Note for Day of Date of Exam: 08/09/19 - Subjective Subjective: WAS ADMITTED FOR SEVERE WEAKNESS, ANEMIA, AND SHORTNESS OF BREATH. SHE IS STATUS POST MASTECTOMY AND SPLEEN BIOPSY. SHE RECEIVED TWO UNITS OF PACKED RED BLOOD CELLS ON ADMISSION. TODAY, SHE IS ALERT AND ORIENTED, LYING IN BED ON MORNING ROUNDS. SHE CONTINUES WITH WEAKNESS AND SHORTNESS OF BREATH, BUT REPORTS SLIGHT IMPROVEMENT IN SYMPTOMS. ON EXAMINATION, HEART IS REGULAR IN RATE AND RHYTHM. BILATERAL LUNGS ARE NOTED WITH DIMINISHED LUNG SOUNDS THROUGHOUT. ABDOMEN IS DISTENDED. SHE IS NOTED WITH NORMAL BOWEL SOUNDS IN ALL QUADRANTS. THERE IS A SERENA DRAIN IN PLACE. HER VITALS THIS MORNING ARE: 98.0-96-18-100%-187/86. LABS WERE OBTAINED. ABNORMAL LAB VALUES INCLUDE THE FOLLOWING: RBC 2.74, HGB 8.6, HCT 25.0, PLT COUNT 120, BUN 51, CREATININE 1.84, GLUCOSE 328, CALCIUM 8.3, ALBUMIN 3.1. A URINE CULTURE IS PENDING. A KUB WAS OBTAINED THIS MORNING AND REVEALED: Bowel gas pattern is nonspecific and nonobstructive. No dilated intestinal loops are seen. There is scattered retain ed stool in the colon. There are chronic degenerative changes of the lumbosacral spine and hips. Cholecystectomy clips are noted. PHYSICAL AND OCCUPATIONAL THERAPY IS WORKING WITH PATIENT. SHE IS CURRENTLY RECEIVING IV FLUIDS, KEFLEX, HUMULIN R SLIDING SCALE, AND HOME MEDICATIONS WERE RESUMED. TODAY, WE WILL START LEVEMIR 15 UNITS SC BID. OTHERWISE, WE WILL CONTINUE WITH CURRENT PLAN OF CARE TODAY. WE WILL FOLLOW UP WITH AM LABS AND CONTINUE TO MONITOR. - Past Medical Family Social History Past Med/Fam/Surg Hx: No changes since H&P Allergies: Allergies No Known Drug Allergies Allergy (Verified 09/21/17 07:49) - Review of Systems ROS: No change since H&P - Vital Signs and I&O's Vital Signs: Temperature 98.4 F Pulse Rate [Left Radial] 91 Pulse Rate 96 Respiratory Rate 18 Blood Pressure [Right Calf] 144/65 Blood Pressure [Left Calf] 90/51 Blood Pressure [Right Arm] 149/65 Blood Pressure [Left Arm] 129/61 Blood Pressure 163/68 O2 Sat by Pulse Oximetry 97 Intake and Output: Intake & Output 08/09/19 08/10/19 08/11/19 08/12/19 11:59 11:59 11:59 11:59 Intake Total 780 / 780 1730 / 1730 1240 / 1240 Output Total 90 / 90 870 / 870 65 / 65 Balance 690 / 690 860 / 860 1175 / 1175 - Physical Exam Oriented: Normal Eyes: Normal Ear: Normal Nose: Normal Throat: Normal Respiratory: Normal Cardiovascular: Normal : Normal Auscultation: Bowel Sounds: Normal Palpation: Normal Tenderness: Diffuse, Mild Skin: Normal Musculoskeletal: Normal Psychiatric: Normal Mood Description: Calm Affect: Normal Speech Pattern: Clear, Appropriate - Laboratory and Diagnostics Result Diagrams: 08/11/19 04:30 08/11/19 04:30 Labs: 08/08/19 05:32 Urine,Clean Catch Urine Culture - Final Morganella Morganii Laboratory WBC 5.8 X10^3/uL (3.6-10.0) 08/11/19 04:30 RBC 2.76 X10^6/uL (3.5-5.4) L 08/11/19 04:30 Hgb 8.6 g/dL (12.0-16.0) L 08/11/19 04:30 Hct 25.4 % (36.0-47.0) L 08/11/19 04:30 MCV 92.1 fL (80.0-100.0) 08/11/19 04:30 MCH 31.2 pg (27.0-34.0) 08/11/19 04:30 MCHC 33.9 g/dL (33.0-35.0) 08/11/19 04:30 RDW 16.3 % (11.6-16.5) 08/11/19 04:30 Plt Count 130 X10^3/uL (150.0-450.0) L 08/11/19 04:30 MPV 9.8 fL (7.4-11.0) 08/11/19 04:30 Neut % (Auto) 49.9 % (42.0-75.0) 08/11/19 04:30 Lymph % (Auto) 22.5 % (21.0-51.0) 08/11/19 04:30 [place] % (Auto) 8.1 % (0.0-13.0) 08/11/19 04:30 Eos % (Auto) 18.9 % (0.9-2.9) H 08/11/19 04:30 Baso % (Auto) 0.6 % (0.2-1.0) 08/11/19 04:30 Neut # (Auto) 2.9 x10^3/uL (2.2-4.8) 08/11/19 04:30 Lymph # (Auto) 1.3 X10^3/uL (1.3-2.9) 08/11/19 04:30 [place] # (Auto) 0.5 x10^3/uL (0.3-0.8) 08/11/19 04:30 Eos # (Auto) 1.1 x10^3/uL (0.0-0.2) H 08/11/19 04:30 Baso # (Auto) 0.0 X10^3/uL (0.0-0.1) 08/11/19 04:30 Absolute Nucleated RBC 0.0 /100WBC 08/11/19 04:30 Sodium 137 mmol/L (136-145) 08/11/19 04:30 Corrected Sodium 142 mmol/L (136-145) 08/11/19 04:30 Potassium 4.6 mmol/L (3.5-5.1) 08/11/19 04:30 Chloride 100 mmol/L (98-107) 08/11/19 04:30 Carbon Dioxide 29.3 mmol/L (21-32) 08/11/19 04:30 BUN 47 mg/dL (7-18) H 08/11/19 04:30 Creatinine 1.30 mg/dL (0.55-1.02) H 08/11/19 04:30 Est GFR (MDRD) Af Amer 52 (>60) L 08/11/19 04:30 Est GFR (MDRD) Non-Af 43 (>60) L 08/11/19 04:30 Glucose 295 mg/dL (65-99) H 08/11/19 04:30 POC Glucose (mg/dL) 326 mg/dL (65-99) H 08/11/19 11:26 Calcium 8.1 mg/dL (8.5-10.1) L 08/11/19 04:30 Corrected Calcium 8.9 mg/dL (8.5-10.1) 08/11/19 04:30 Total Bilirubin 0.40 mg/dL (0.2-1.0) 08/11/19 04:30 AST 70 Units/L (15-37) H 08/11/19 04:30 ALT 90 Units/L (12-78) H 08/11/19 04:30 Alkaline Phosphatase 98 Units/L (46-116) 08/11/19 04:30 Total Protein 6.7 g/dL (6.4-8.2) 08/11/19 04:30 Albumin 3.0 g/dL (3.4-5.0) L 08/11/19 04:30 Globulin 3.7 g/dL (2.5-4.5) 08/11/19 04:30 Albumin/Globulin Ratio 0.8 Ratio (1.1-2.1) L 08/11/19 04:30 Specimen Type Clean catch urine 08/08/19 05:32 Urine Color Yellow (YELLOW) 08/08/19 05:32 Urine Appearance Clear (CLEAR) 08/08/19 05:32 Urine pH 5.0 (5.0 - 8.0) 08/08/19 05:32 Ur Specific [place] 1.015 (1.000-1.030) 08/08/19 05:32 Urine Protein Negative (NEGATIVE) 08/08/19 05:32 Urine Glucose (UA) 4+ (NEGATIVE) 08/08/19 05:32 Urine Ketones Negative (NEGATIVE) 08/08/19 05:32 Urine Occult Blood Negative (NEGATIVE) 08/08/19 05:32 Urine Nitrite Negative (NEGATIVE) 08/08/19 05:32 Urine Bilirubin Negative (NEGATIVE) 08/08/19 05:32 Urine Urobilinogen Normal (NORMAL) 08/08/19 05:32 Ur Leukocyte Esterase 1+ (NEGATIVE) 08/08/19 05:32 Urine RBC None seen /HPF (0-3) 08/08/19 05:32 Urine WBC 0-2 /HPF (0-5) 08/08/19 05:32 Ur Squamous Epith Cells Rare /HPF (NEGATIVE) 08/08/19 05:32 Ur Renal Epithelial Cell Rare /HPF (NEGATIVE) 08/08/19 05:32 Urine Bacteria Negative /HPF (NEGATIVE) 08/08/19 05:32 Ur Culture Indicated? 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
[2019-08-11] MEDS ORDERED: NS IRRIGATION 500 ML IR ONE (14:48)
[2019-08-11] MEDS: SYNTHROID 175 mcg TAB PO SCH (16:45)
[2019-08-11] MEDS: GLUCOTROL PO SCH (16:46)
[2019-08-11] MEDS ORDERED: STERILE WATER IRRIGATION IR ONE (19:49)
[2019-08-11] MEDS: SNACK - Diabetic Appropriate PO SCH (20:00)
--- NOTE | 2019-08-11 21:20 | PCM.PROG ---
Progress Note - Progress Note for Day of Date of Exam: 08/10/19 - Subjective Subjective: WAS ADMITTED FOR SEVERE WEAKNESS, ANEMIA, AND SHORTNESS OF BREATH. SHE IS STATUS POST MASTECTOMY AND SPLEEN BIOPSY. SHE RECEIVED TWO UNITS OF PACKED RED BLOOD CELLS ON ADMISSION. TODAY, SHE IS ALERT AND ORIENTED, LYING IN BED ON MORNING ROUNDS. SHE CONTINUES WITH WEAKNESS AND SHORTNESS OF BREATH. ON EXAMINATION, HEART IS REGULAR IN RATE AND RHYTHM. BILATERAL LUNGS ARE NOTED WITH DIMINISHED LUNG SOUNDS THROUGHOUT. ABDOMEN IS DISTENDED. SHE IS NOTED WITH NORMAL BOWEL SOUNDS IN ALL QUADRANTS. THERE IS A SERENA DRAIN IN PLACE. HER VITALS THIS MORNING ARE: [id number]%NC-112/58. LABS WERE OBTAINED. ABNORMAL LAB VALUES INCLUDE THE FOLLOWING: RBC 2.67, HGB 8.3, HCT 24.8, BUN 52, CREATININE 2.02, GLUCOSE 326, CALCIUM 8.2, AST 76, ALBUMIN 3.0. A URINE CULTURE REPORTS GROWTH OF MORGANELLA MORGANII. PHYSICAL AND OCCUPATIONAL THERAPY IS WORKING WITH PATIENT. SHE IS CURRENTLY RECEIVING IV FLUIDS, KEFLEX, HUMULIN R SLIDING SCALE, LEVEMIR 15 UNITS SC BID, AND HOME MEDICATIONS WERE RESUMED. TODAY, WE WILL START ROCEPHIN 1G IV DAILY. OTHERWISE, WE WILL CONTINUE WITH CURRENT PLAN OF CARE TODAY. WE WILL FOLLOW UP WITH AM LABS AND CONTINUE TO MONITOR. - Past Medical Family Social History Past Med/Fam/Surg Hx: No changes since H&P Allergies: Allergies No Known Drug Allergies Allergy (Verified 09/21/17 07:49) - Review of Systems ROS: No change since H&P - Vital Signs and I&O's Vital Signs: Temperature 99.0 F Pulse Rate [Left Radial] 91 Pulse Rate 72 Respiratory Rate 18 Blood Pressure [Right Calf] 144/65 Blood Pressure [Left Calf] 90/51 Blood Pressure [Right Arm] 149/65 Blood Pressure [Left Arm] 150/69 Blood Pressure 163/68 O2 Sat by Pulse Oximetry 92 Intake and Output: Intake & Output 08/09/19 08/10/19 08/11/19 08/12/19 11:59 11:59 11:59 11:59 Intake Total 780 / 780 1730 / 1730 1240 / 1240 940 / 940 Output Total 90 / 90 870 / 870 65 / 65 15 / 15 Balance 690 / 690 860 / 860 1175 / 1175 925 / 925 - Physical Exam Oriented: Normal Eyes: Normal Ear: Normal Nose: Normal Throat: Normal Respiratory: Normal Cardiovascular: Normal : Normal Auscultation: Bowel Sounds: Normal Tenderness: Diffuse, Mild Skin: Normal Musculoskeletal: Normal Psychiatric: Normal Mood Description: Calm Affect: Normal Speech Pattern: Clear, Appropriate - Laboratory and Diagnostics Result Diagrams: 08/11/19 04:30 08/11/19 04:30 Labs: 08/08/19 05:32 Urine,Clean Catch Urine Culture - Final Morganella Morganii Laboratory WBC 5.8 X10^3/uL (3.6-10.0) 08/11/19 04:30 RBC 2.76 X10^6/uL (3.5-5.4) L 08/11/19 04:30 Hgb 8.6 g/dL (12.0-16.0) L 08/11/19 04:30 Hct 25.4 % (36.0-47.0) L 08/11/19 04:30 MCV 92.1 fL (80.0-100.0) 08/11/19 04:30 MCH 31.2 pg (27.0-34.0) 08/11/19 04:30 MCHC 33.9 g/dL (33.0-35.0) 08/11/19 04:30 RDW 16.3 % (11.6-16.5) 08/11/19 04:30 Plt Count 130 X10^3/uL (150.0-450.0) L 08/11/19 04:30 MPV 9.8 fL (7.4-11.0) 08/11/19 04:30 Neut % (Auto) 49.9 % (42.0-75.0) 08/11/19 04:30 Lymph % (Auto) 22.5 % (21.0-51.0) 08/11/19 04:30 Stephenson % (Auto) 8.1 % (0.0-13.0) 08/11/19 04:30 Eos % (Auto) 18.9 % (0.9-2.9) H 08/11/19 04:30 Baso % (Auto) 0.6 % (0.2-1.0) 08/11/19 04:30 Neut # (Auto) 2.9 x10^3/uL (2.2-4.8) 08/11/19 04:30 Lymph # (Auto) 1.3 X10^3/uL (1.3-2.9) 08/11/19 04:30 Stephenson # (Auto) 0.5 x10^3/uL (0.3-0.8) 08/11/19 04:30 Eos # (Auto) 1.1 x10^3/uL (0.0-0.2) H 08/11/19 04:30 Baso # (Auto) 0.0 X10^3/uL (0.0-0.1) 08/11/19 04:30 Absolute Nucleated RBC 0.0 /100WBC 08/11/19 04:30 Sodium 137 mmol/L (136-145) 08/11/19 04:30 Corrected Sodium 142 mmol/L (136-145) 08/11/19 04:30 Potassium 4.6 mmol/L (3.5-5.1) 08/11/19 04:30 Chloride 100 mmol/L (98-107) 08/11/19 04:30 Carbon Dioxide 29.3 mmol/L (21-32) 08/11/19 04:30 BUN 47 mg/dL (7-18) H 08/11/19 04:30 Creatinine 1.30 mg/dL (0.55-1.02) H 08/11/19 04:30 Est GFR (MDRD) Af Amer 52 (>60) L 08/11/19 04:30 Est GFR (MDRD) Non-Af 43 (>60) L 08/11/19 04:30 Glucose 295 mg/dL (65-99) H 08/11/19 04:30 POC Glucose (mg/dL) 349 mg/dL (65-99) H 08/11/19 20:08 Calcium 8.1 mg/dL (8.5-10.1) L 08/11/19 04:30 Corrected Calcium 8.9 mg/dL (8.5-10.1) 08/11/19 04:30 Total Bilirubin 0.40 mg/dL (0.2-1.0) 08/11/19 04:30 AST 70 Units/L (15-37) H 08/11/19 04:30 ALT 90 Units/L (12-78) H 08/11/19 04:30 Alkaline Phosphatase 98 Units/L (46-116) 08/11/19 04:30 Total Protein 6.7 g/dL (6.4-8.2) 08/11/19 04:30 Albumin 3.0 g/dL (3.4-5.0) L 08/11/19 04:30 Globulin 3.7 g/dL (2.5-4.5) 08/11/19 04:30 Albumin/Globulin Ratio 0.8 Ratio (1.1-2.1) L 08/11/19 04:30 Specimen Type Clean catch urine 08/08/19 05:32 Urine Color Yellow (YELLOW) 08/08/19 05:32 Urine Appearance Clear (CLEAR) 08/08/19 05:32 Urine pH 5.0 (5.0 - 8.0) 08/08/19 05:32 Ur Specific [place] 1.015 (1.000-1.030) 08/08/19 05:32 Urine Protein Negative (NEGATIVE) 08/08/19 05:32 Urine Glucose (UA) 4+ (NEGATIVE) 08/08/19 05:32 Urine Ketones Negative (NEGATIVE) 08/08/19 05:32 Urine Occult Blood Negative (NEGATIVE) 08/08/19 05:32 Urine Nitrite Negative (NEGATIVE) 08/08/19 05:32 Urine Bilirubin Negative (NEGATIVE) 08/08/19 05:32 Urine Urobilinogen Normal (NORMAL) 08/08/19 05:32 Ur Leukocyte Esterase 1+ (NEGATIVE) 08/08/19 05:32 Urine RBC None seen /HPF (0-3) 08/08/19 05:32 Urine WBC 0-2 /HPF (0-5) 08/08/19 05:32 Ur Squamous Epith Cells Rare /HPF (NEGATIVE) 08/08/19 05:32 Ur Renal Epithelial Cell Rare /HPF (NEGATIVE) 08/08/19 05:32 Urine Bacteria Negative /HPF (NEGATIVE) 08/08/19 05:32 Ur Culture Indicated? No/not indicated 08/08/19 05:32 Blood Type O POSITIVE 08/11/19 00:50 Antibody Screen Negative 08/11/19 00:50 Crossmatch See Detail 08/07/19 20:15 - Plan (1) Anemia Status: Acute Qualifiers: Anemia type: iron deficiency Iron deficiency anemia type: chronic blood loss Qualified Code(s): D50.0 - Iron deficiency anemia secondary to blood loss (chronic) Plan: MONITOR H&H, CONTINUE TO MONITOR (2) Urinary tract infection Status: Acute Qualifiers: Urinary tract infection type: acute cystitis Hematuria presence: without hematuria Qualified Code(s): N30.00 - Acute cystitis without hematuria Plan: ROCEPHIN 1G IV DAILY, CONTINUE TO MONITOR (3) Shortness of breath Status: Acute (4) Diabetes mellitus, type 2 Status: Chronic Qualifiers: Diabetes mellitus terminal carman insulin use: with assisted use Diabetes mellitus complication status: with other specified complication Qualified Code(s): E11.69 - Type 2 diabetes mellitus with other specified complication; Z79.4 - snf (current) use of insulin Plan: HUMULIN R SLIDING SCALE, LEVEMIR 15 UNITS SC BID, CONTINUE TO MONITOR (5) Status post mastectomy Status: Acute Qualifiers: Laterality: right Qualified Code(s): Z90.11 - Acquired absence of right breast and nipple Plan: SERENA DRAIN, CONTINUE TO MONITOR
[2019-08-11] MEDS: TRICOR TAB 160 MG PO SCH (21:30)
[2019-08-11] MEDS: PROTONIX INJ 40 MG VIAL IVP SCH (21:30)
[2019-08-11] MEDS: KEFLEX CAP 500 MG PO SCH (21:30)
[2019-08-11] MEDS: REQUIP PO SCH (21:30)
[2019-08-11] MEDS: NEURONTIN CAP 100 MG PO SCH (21:30)
[2019-08-12] MEDS: NS 1000 ML 1,000 ML IV SCH ×2 (00:20→05:29)
[2019-08-12] MEDS: COLACE CAP 100 MG PO SCH (00:22)
[2019-08-12] MEDS: MILK OF MAGNESIA PO SCH ×2 (00:28→11:46)
[2019-08-12 05:21] LABS: BASOPHILS % (AUTO) 0.7 % (0.2-1.0); EOSINOPHILS # (AUTO) 1.1 x10^3/uL (0.0-0.2); EOSINOPHILS % (AUTO) 17.5 % (0.9-2.9); HEMATOCRIT 24.1 % (36.0-47.0); HEMOGLOBIN 8.3 g/dL (12.0-16.0); LYMPHOCYTES # (AUTO) 1.4 X10^3/uL (1.3-2.9); LYMPHOCYTES % (AUTO) 23.7 % (21.0-51.0); MEAN CORPUSCULAR HEMOGLOBIN 31.7 pg (27.0-34.0); MEAN CORPUSCULAR HGB CONC 34.3 g/dL (33.0-35.0); MEAN CORPUSCULAR VOLUME 92.4 fL (80.0-100.0); MEAN PLATELET VOLUME 9.6 fL (7.4-11.0); MONOCYTES # (AUTO) 0.5 x10^3/uL (0.3-0.8); MONOCYTES % (AUTO) 8.7 % (0.0-13.0); NEUTROPHILS % (AUTO) 49.4 % (42.0-75.0); PLATELET COUNT 132 X10^3/uL (150.0-450.0); RED BLOOD COUNT 2.61 X10^6/uL (3.5-5.4); RED CELL DISTRIBUTION WIDTH 16.1 % (11.6-16.5); WHITE BLOOD COUNT 6.1 X10^3/uL (3.6-10.0)
[2019-08-12 05:31] LABS: ALANINE AMINOTRANSFERASE 93 Units/L (12-78); ALBUMIN 2.8 g/dL (3.4-5.0); ALKALINE PHOSPHATASE 114 Units/L (46-116); ASPARTATE AMINO TRANSFERASE 58 Units/L (15-37); BLOOD UREA NITROGEN 46 mg/dL (7-18); CALCIUM 8.3 mg/dL (8.5-10.1); CARBON DIOXIDE 28.2 mmol/L (21-32); CHLORIDE 102 mmol/L (98-107); COR CA(FOR HYPOALB) 9.3 mg/dL (8.5-10.1); COR NA(FOR HYPERGLY) 143 mmol/L (136-145); CREATININE 1.11 mg/dL (0.55-1.02); SODIUM 140 mmol/L (136-145); TOTAL PROTEIN 6.4 g/dL (6.4-8.2); eGFR NON BLACK RACES 51 (>60)
[2019-08-12] MEDS ORDERED: GLUCOPHAGE ONE (05:38)
[2019-08-12] MEDS: GLUCOPHAGE PO SCH (05:45)
[2019-08-12] MEDS: HumuLIN R SC PRN ×2 (06:00→12:19)
[2019-08-12] MEDS: GLUCOTROL PO SCH (06:30)
[2019-08-12] MEDS: LASIX PO SCH (06:30)
--- NOTE | 2019-08-12 08:57 | PCM.PROG ---
Progress Note - Progress Note for Day of Date of Exam: 08/11/19 - Subjective Subjective: WAS ADMITTED FOR SEVERE WEAKNESS, ANEMIA, AND SHORTNESS OF BREATH. SHE IS STATUS POST MASTECTOMY AND SPLEEN BIOPSY. SHE RECEIVED TWO UNITS OF PACKED RED BLOOD CELLS ON ADMISSION. TODAY, SHE IS ALERT AND ORIENTED, LYING IN BED ON MORNING ROUNDS. SHE CONTINUES WITH WEAKNESS AND SHORTNESS OF BREATH. ON EXAMINATION, HEART IS REGULAR IN RATE AND RHYTHM. BILATERAL LUNGS ARE NOTED WITH DIMINISHED LUNG SOUNDS THROUGHOUT. ABDOMEN IS DISTENDED. SHE IS NOTED WITH NORMAL BOWEL SOUNDS IN ALL QUADRANTS. THERE IS A SERENA DRAIN IN PLACE. HER VITALS THIS MORNING ARE: 98.5-90-18-97%-187/72. LABS WERE OBTAINED. ABNORMAL LAB VALUES INCLUDE THE FOLLOWING: RBC 2.76, HGB 8.6, HCT 25.4, PLT COUNT 130, BUN 47, CREATININE 1.30, GLUCOSE 295, CALCIUM 8.1, AST 70, ALT 90, ALBUMIN 3.0. A URINE CULTURE REPORTS GROWTH OF MORGANELLA MORGANII. PHYSICAL AND OCCUPATIONAL THERAPY IS WORKING WITH PATIENT. SHE IS CURRENTLY RECEIVING IV FLUIDS, ROCEPHIN 1G IV DAILY, KEFLEX, HUMULIN R SLIDING SCALE, LEVEMIR 15 UNITS SC BID, AND HOME MEDICATIONS WERE RESUMED. TODAY, WE WILL RESTART HER ORAL DIABETIC MEDICATIONS. OTHERWISE, WE WILL CONTINUE WITH CURRENT PLAN OF CARE. WE WILL FOLLOW UP WITH AM LABS AND CONTINUE TO MONITOR. - Past Medical Family Social History Past Med/Fam/Surg Hx: No changes since H&P Allergies: Allergies No Known Drug Allergies Allergy (Verified 09/21/17 07:49) - Review of Systems ROS: No change since H&P - Vital Signs and I&O's Vital Signs: Temperature 97.6 F Pulse Rate [Left Radial] 82 Pulse Rate 72 Respiratory Rate 14 Blood Pressure [Right Calf] 144/65 Blood Pressure [Left Calf] 90/51 Blood Pressure [Right Arm] 149/65 Blood Pressure [Left Arm] 117/58 Blood Pressure 163/68 O2 Sat by Pulse Oximetry 98 Intake and Output: Intake & Output 08/09/19 08/10/19 08/11/19 08/12/19 11:59 11:59 11:59 11:59 Intake Total 780 / 780 1730 / 1730 1240 / 1240 1730 / 1730 Output Total 90 / 90 870 / 870 65 / 65 35 / 35 Balance 690 / 690 860 / 860 1175 / 1175 1695 / 1695 - Physical Exam Oriented: Normal Eyes: Normal Ear: Normal Nose: Normal Throat: Normal Respiratory: Normal Cardiovascular: Normal : Normal Auscultation: Bowel Sounds: Normal Palpation: Normal Tenderness: Diffuse, Mild Skin: Normal Musculoskeletal: Normal Psychiatric: Normal Mood Description: Calm Affect: Normal Speech Pattern: Clear, Appropriate - Laboratory and Diagnostics Result Diagrams: 08/12/19 04:18 08/12/19 04:18 Labs: 08/08/19 05:32 Urine,Clean Catch Urine Culture - Final Morganella Morganii Laboratory WBC 6.1 X10^3/uL (3.6-10.0) 08/12/19 04:18 RBC 2.61 X10^6/uL (3.5-5.4) L 08/12/19 04:18 Hgb 8.3 g/dL (12.0-16.0) L 08/12/19 04:18 Hct 24.1 % (36.0-47.0) L 08/12/19 04:18 MCV 92.4 fL (80.0-100.0) 08/12/19 04:18 MCH 31.7 pg (27.0-34.0) 08/12/19 04:18 MCHC 34.3 g/dL (33.0-35.0) 08/12/19 04:18 RDW 16.1 % (11.6-16.5) 08/12/19 04:18 Plt Count 132 X10^3/uL (150.0-450.0) L 08/12/19 04:18 MPV 9.6 fL (7.4-11.0) 08/12/19 04:18 Neut % (Auto) 49.4 % (42.0-75.0) 08/12/19 04:18 Lymph % (Auto) 23.7 % (21.0-51.0) 08/12/19 04:18 [place] % (Auto) 8.7 % (0.0-13.0) 08/12/19 04:18 Eos % (Auto) 17.5 % (0.9-2.9) H 08/12/19 04:18 Baso % (Auto) 0.7 % (0.2-1.0) 08/12/19 04:18 Neut # (Auto) 3.0 x10^3/uL (2.2-4.8) 08/12/19 04:18 Lymph # (Auto) 1.4 X10^3/uL (1.3-2.9) 08/12/19 04:18 [place] # (Auto) 0.5 x10^3/uL (0.3-0.8) 08/12/19 04:18 Eos # (Auto) 1.1 x10^3/uL (0.0-0.2) H 08/12/19 04:18 Baso # (Auto) 0.0 X10^3/uL (0.0-0.1) 08/12/19 04:18 Absolute Nucleated RBC 0.2 /100WBC 08/12/19 04:18 Sodium 140 mmol/L (136-145) 08/12/19 04:18 Corrected Sodium 143 mmol/L (136-145) 08/12/19 04:18 Potassium 4.3 mmol/L (3.5-5.1) 08/12/19 04:18 Chloride 102 mmol/L (98-107) 08/12/19 04:18 Carbon Dioxide 28.2 mmol/L (21-32) 08/12/19 04:18 BUN 46 mg/dL (7-18) H 08/12/19 04:18 Creatinine 1.11 mg/dL (0.55-1.02) H 08/12/19 04:18 Est GFR (MDRD) Af Amer > 60 (>60) 08/12/19 04:18 Est GFR (MDRD) Non-Af 51 (>60) L 08/12/19 04:18 Glucose 223 mg/dL (65-99) H 08/12/19 04:18 POC Glucose (mg/dL) 232 mg/dL (65-99) H 08/12/19 05:34 Calcium 8.3 mg/dL (8.5-10.1) L 08/12/19 04:18 Corrected Calcium 9.3 mg/dL (8.5-10.1) 08/12/19 04:18 Total Bilirubin 0.40 mg/dL (0.2-1.0) 08/12/19 04:18 AST 58 Units/L (15-37) H 08/12/19 04:18 ALT 93 Units/L (12-78) H 08/12/19 04:18 Alkaline Phosphatase 114 Units/L (46-116) 08/12/19 04:18 Total Protein 6.4 g/dL (6.4-8.2) 08/12/19 04:18 Albumin 2.8 g/dL (3.4-5.0) L 08/12/19 04:18 Globulin 3.6 g/dL (2.5-4.5) 08/12/19 04:18 Albumin/Globulin Ratio 0.8 Ratio (1.1-2.1) L 08/12/19 04:18 Specimen Type Clean catch urine 08/08/19 05:32 Urine Color Yellow (YELLOW) 08/08/19 05:32 Urine Appearance Clear (CLEAR) 08/08/19 05:32 Urine pH 5.0 (5.0 - 8.0) 08/08/19 05:32 Ur Specific [place] 1.015 (1.000-1.030) 08/08/19 05:32 Urine Protein Negative (NEGATIVE) 08/08/19 05:32 Urine Glucose (UA) 4+ (NEGATIVE) 08/08/19 05:32 Urine Ketones Negative (NEGATIVE) 08/08/19 05:32 Urine Occult Blood Negative (NEGATIVE) 08/08/19 05:32 Urine Nitrite Negative (NEGATIVE) 08/08/19 05:32 Urine Bilirubin Negative (NEGATIVE) 08/08/19 05:32 Urine Urobilinogen Normal (NORMAL) 08/08/19 05:32 Ur Leukocyte Esterase 1+ (NEGATIVE) 08/08/19 05:32 Urine RBC None seen /HPF (0-3) 08/08/19 05:32 Urine WBC 0-2 /HPF (0-5) 08/08/19 05:32 Ur Squamous Epith Cells Rare /HPF (NEGATIVE) 08/08/19 05:32 Ur Renal Epithelial Cell Rare /HPF (NEGATIVE) 08/08/19 05:32 Urine Bacteria Negative /HPF (NEGATIVE) 08/08/19 05:32 Ur Culture Indicated? No/not indicated 08/08/19 05:32 Blood Type O POSITIVE 08/11/19 00:50 Antibody Screen Negative 08/11/19 00:50 Crossmatch See Detail 08/07/19 20:15 - Plan (1) Anemia Status: Acute Qualifiers: Anemia type: iron deficiency Iron deficiency anemia type: chronic blood loss Qualified Code(s): D50.0 - Iron deficiency anemia secondary to blood loss (chronic) Plan: MONITOR H&H, CONTINUE TO MONITOR (2) Urinary tract infection Status: Acute Qualifiers: Urinary tract infection type: acute cystitis Hematuria presence: without hematuria Qualified Code(s): N30.00 - Acute cystitis without hematuria Plan: ROCEPHIN 1G IV DAILY, CONTINUE TO MONITOR (3) Shortness of breath Status: Acute (4) Diabetes mellitus, type 2 Status: Chronic Qualifiers: Diabetes mellitus longterm insulin use: with longterm use Diabetes mellitus complication status: with other specified complication Qualified Code(s): E11.69 - Type 2 diabetes mellitus with other specified complication; Z79.4 - halfway (current) use of insulin Plan: RESUME HOME MEDICATIONS, HUMULIN R SLIDING SCALE, LEVEMIR 15 UNITS SC BID, CONTINUE TO MONITOR (5) Status post mastectomy Status: Acute Qualifiers: Laterality: right Qualified Code(s): Z90.11 - Acquired absence of right breast and nipple Plan: SERENA DRAIN, CONTINUE TO MONITOR
[2019-08-12] MEDS: ROCEPHIN VIAL 1 GRAM 1 G in NS 100 ML IV + SPIKE MINIBAG* 100 ML IV SCH (09:15)
[2019-08-12] MEDS: NEURONTIN CAP 100 MG PO SCH (09:15)
[2019-08-12] MEDS: JANUVIA PO SCH (09:15)
[2019-08-12] MEDS: FERROUS GLUCONATE PO SCH (09:15)
[2019-08-12] MEDS: ARIMIDEX PO SCH (09:15)
[2019-08-12] MEDS: ZESTORETIC 10/ 12.5MG PO SCH (09:15)
[2019-08-12] MEDS: FOLIC ACID TAB 1 MG PO SCH (09:15)
[2019-08-12] MEDS: LIPITOR TAB 40 MG PO SCH (09:15)
[2019-08-12] MEDS: ARTIFICIAL TEARS DROPS AFFEYE SCH (09:15)
[2019-08-12] MEDS ORDERED: LEVEMIR SC SCH (10:00)
[2019-08-12] MEDS: MIRALAX POWDER (1 DOSE 17 G) PO SCH (11:47)
[2019-08-12 12:33] VITALS: BP 115/56
[2019-08-12] MEDS ORDERED: GLUCOPHAGE PO SCH (21:00)
== END 2019-08-12 14:30 | disposition home or self-care (01) | DRG 812 ==
LOC: MED/SURG → OBSVTOIN 18:51
PROVIDERS: ADMIT Internal Medicine; ATTEND Internal Medicine
CPT/HCPCS: 36415; 36430; 74000; 74018; 80053; 81001; 82947; 85014; 85018; 85025; 86850; 86900; 86901; 86922; 87086; 87088; 87186; 94640; 94760; 97162; 97165; A4216; A4217; A4222; C9113; P9016; S0170; J0696; J1815; J7030; J7050; J7620

== ENCOUNTER 2019-08-12 14:30 | Inpatient (IN) ==
[2019-08-12] MEDS ORDERED: ZOFRAN TAB 4 MG PO PRN (15:11)
[2019-08-12] MEDS ORDERED: DUONEB 0.5 MG/3 MG NEB PRN (15:11)
[2019-08-12] MEDS ORDERED: VITAMIN D (1.25MG) PO SCH (15:11)
[2019-08-12] MEDS ORDERED: FIORICET TAB PO ONE (15:55)
--- NOTE | 2019-08-12 16:12 | PT/OTEVAL ---
PT/OT OBJECTIVES - HISTORY Prescription: PT consult Diagnosis: S/P mastectomy Precautions: falls, SOB PMH: Anemia, Arthritis, COPD, Coronary Artery Disease, Diabetes, Dyslipidemia, GERD, Hypertension, Hypothyroidism, PUD, Sleep Apnea,Hx Breast Ca Prior Level of Function: Independent - COGNITION Mental Status: Alert, Oriented, Name, Date, Place, Purpose, Decreased Safety Awarenes Communication Status: Verbal Ability to Follow Directions: 3 Step - PAIN Right Chest Comments: with certain movements Head Pain Scale: Severe (7-8) Comments: generalized - BED MOBILITY Rolling: Minimal, x1 Scooting: Minimal, x1 Bridging: Minimal, x1 - TRANSFERS Supine to Sit: Minimal, x1 Sit to Stand: Minimal, x1 Sit or Stand Pivot: Minimal, x1 - BALANCE Static Sitting: Good Standing: Fair Dynamic Sitting: Fair Standing: Fair Balance Comment: Standing S/D balance: F/F- - NEUROMOTOR/SENSATION Sharath. Upper Ext Sensation: WFL Coordination: WFL - ROM Bilateral LE ROM: WFL - STRENGTH Bilateral LE Strength Number: 3 Other comment: LE grossly graded 3 to 3+/5 except hip adductors 3-/5 Bilateral UE Strength Number: 3 Other comment: grossly - GAIT Pt. ambulates how many feet?: 50 Amount of assistance required: Moderate Type of Assistive Device: Rolling Walker PT/OT ASSESSMENT - PT Problem List: Decreased Bed Mobility, Decreased Transfers, Decreased Gait, Decreased Balance, Decreased Safety, Decreased LE Strength - PT GOALS Short Term Goals Days: 10 Mobility: Pt to be indep c bed mobility to allow return to PLOF Transfers: Pt to be indep c transfers to allow return to PLOF Gait: Pt to ambulate 150 ft @ supervision c FWRW to increase tolerance Balance: Pt kera be able to score >7 in 30 sec chair stand test Lacing Cutter Goals Days: 20 Gait: Pt to ambulate to 280 ft @ supervision c LRAD to increase tolerance. Balance: Pt to improve standing S/D balance to G+/G+ to reduce risk from falls. ROM/Strength: To improve B LE mm strength 2-3 mm increments for stability. - PATIENT GOALS Goals Discussed with Patient/Family: Yes Rehabilitation Potential: Excellent Weakness and Barriers: Pain - PLAN Suggested Treatment Plan: Bed Mobility Training, Therapeutic Activity, Gait Training, Neuro Re-education, Therapeutic Ex with HEP, Patient Education, Family Education - FREQUENCY AND DURATION PT: 6x/week Expected Continuation of Care at Discharge: Determined on Progress Anticipated Equipment Needs: SCOOTER, w/c.
[2019-08-12 16:57] VITALS: BMI 28.5
[2019-08-12] MEDS: HumuLIN R SC PRN (17:38)
[2019-08-12] MEDS: LASIX PO SCH (17:39)
[2019-08-12] MEDS: GLUCOTROL PO SCH (17:39)
[2019-08-12] MEDS: SYNTHROID 175 mcg TAB PO SCH (17:39)
--- NOTE | 2019-08-12 20:35 | DR.UPDATE ---
H&P Update History and Physical Update: History and Physical reviewed and patient examined. Changes noted: Yes with the following: WAS BEING TREATED FOR ANEMIA, SOB, WEAKNESS, AND A URINARY TRACT INFECTION FOLLOWING A RIGHT SIDE MASTECTOMY AND SPLEEN BIOPSY. SHE RECEIVED TWO UNITS OF PACKED RED BLOOD CELLS LAST WEEK. SHE WAS CHANGED TO [facility] TODAY FOR PHYSICAL THERAPY AND ANTIBIOTIC THERAPY. DURING HER STAY, SHE WILL RECEIVE ROCEPHIN 1G IV DAILY, RESPIRATORY TX, AND HER HOME MEDICATIONS. THERAPY WILL WORK WITH PATIENT TWICE A DAY. WE WILL MONITOR LABS EVERY 3 DAYS AND MAKE CHANGES ACCORDINGLY. Prescription drug monitoring program results: PDMP was not reviewed H&P Reviewed: Yes Patient was examined?: Yes
[2019-08-12] MEDS: REQUIP PO SCH (20:57)
[2019-08-12] MEDS: COLACE CAP 100 MG PO SCH (20:57)
[2019-08-12] MEDS: NEURONTIN CAP 100 MG PO SCH (20:58)
[2019-08-12] MEDS: TRICOR TAB 160 MG PO SCH (20:58)
[2019-08-12] MEDS: AMBIEN PO PRN (20:58)
[2019-08-12] MEDS: FOLIC ACID TAB 1 MG PO SCH (20:58)
[2019-08-12] MEDS: KEFLEX CAP 500 MG PO SCH (20:58)
[2019-08-12] MEDS: FERROUS GLUCONATE PO SCH (20:58)
[2019-08-12] MEDS: LEVEMIR SC SCH (20:59)
[2019-08-12] MEDS ORDERED: GLUCOPHAGE ONE (21:02)
[2019-08-12] MEDS: GLUCOPHAGE PO SCH (21:04)
[2019-08-12] MEDS: MILK OF MAGNESIA PO SCH (21:10)
[2019-08-12] MEDS: SNACK - Diabetic Appropriate PO SCH ×2 (22:22)
[2019-08-13] MEDS ORDERED: GLUCOPHAGE ONE ×2 (07:53→16:37)
[2019-08-13] MEDS ORDERED: NS 250 ML IV 250 ML IV ONE (09:15)
[2019-08-13] MEDS: LASIX PO SCH ×2 (09:24→16:48)
[2019-08-13] MEDS: FERROUS GLUCONATE PO SCH ×2 (09:24→20:34)
[2019-08-13] MEDS: GLUCOPHAGE PO SCH ×2 (09:24→16:48)
[2019-08-13] MEDS: FOLIC ACID TAB 1 MG PO SCH ×2 (09:24→20:35)
[2019-08-13] MEDS: NEURONTIN CAP 100 MG PO SCH ×2 (09:24→20:35)
[2019-08-13] MEDS: FIORICET TAB PO PRN (09:25)
[2019-08-13] MEDS: LIPITOR TAB 40 MG PO SCH (09:25)
[2019-08-13] MEDS: ARIMIDEX PO SCH (09:25)
[2019-08-13] MEDS: JANUVIA PO SCH (09:25)
[2019-08-13] MEDS: GLUCOTROL PO SCH ×2 (09:27→16:48)
[2019-08-13] MEDS: LEVEMIR SC SCH ×2 (09:28→20:39)
[2019-08-13] MEDS: ROCEPHIN VIAL 1 GRAM 1 G in NS 100 ML IV + SPIKE MINIBAG* 100 ML IV SCH (09:28)
[2019-08-13] MEDS: MILK OF MAGNESIA PO SCH ×2 (09:40→20:36)
[2019-08-13] MEDS: MIRALAX POWDER (1 DOSE 17 G) PO SCH (09:40)
[2019-08-13] MEDS: ZESTORETIC 10/ 12.5MG PO SCH (09:41)
[2019-08-13] MEDS: ARTIFICIAL TEARS DROPS AFFEYE SCH (09:41)
--- NOTE | 2019-08-13 11:26 | PT/OTEVAL ---
PT/OT OBJECTIVES - HISTORY Prescription: OT consult Diagnosis: S/P mastectomy Precautions: SOB,Falls PMH: Anemia, Arthritis, COPD, Coronary Artery Disease, Diabetes, Dyslipidemia, GERD, Hypertension, Hypothyroidism, PUD, Sleep Apnea,Hx Breast Ca, Restless Leg Syndrome, Pulmonary HTN, Hx Goiter Other: prior to hospitalization, pt lives alone in a single level home. Pt reported to be independent with ADLs and IADLs. Pt uses rollator walker, has shower chair,grab bars and hand held shower for bathing. Pt also added having brother to pich up groceries and a lady that comes for cleaning house. Pt uses O2 supplement at 2 lit via NC PRN and Bipap at night. Pt reported having fall over the last 6 mos. - COGNITION Mental Status: Alert, Oriented, Name, Date, Place, Purpose, Decreased Safety Awarenes Communication Status: Verbal Ability to Follow Directions: 3 Step Memory Loss: Short term memory loss - PAIN Right Chest Pain Scale: Mild (3-4) Comments: with certain movements Head Pain Scale: Moderate (5-6) Comments: generalized - TRANSFERS Sit to Stand: Minimal - ADL'S Feeding: Independent Grooming: Independent Upper Body ADL: Moderate Lower Body ADL: Moderate Toileting: Moderate - BALANCE Static Sitting: Good Standing: Fair Dynamic Sitting: Fair Standing: Fair Balance Comment: Standing S/D balance: F/F- - NEUROMOTOR/SENSATION Sharath. Upper Ext Sensation: WFL Coordination: WFL - HAND DOMINANCE Extremity Function: Hand Dominance: Right - ROM Bilateral UE ROM: WFL Muscle Tone: WFL - STRENGTH Bilateral LE Strength Number: 3 Other comment: LE grossly graded 3 to 3+/5 except hip adductors 3-/5 Bilateral UE Strength Number: 3 Other comment: grossly graded PT/OT ASSESSMENT - OT Problem List: Decreased Mobility ADL's, Decreased Safety Aware, Decreased Dressing, Decreased Bathing, Decreased UE Strength, Other Other, comment: decerased functional actvity tolerance - PT GOALS Short Term Goals Days: 10 Mobility: Pt to be indep c bed mobility to allow return to PLOF Transfers: Pt to be indep c transfers to allow return to PLOF Gait: Pt to ambulate 150 ft @ supervision c FWRW to increase tolerance Balance: Pt kera be able to score >7 in 30 sec chair stand test Air Drill Operator Goals Days: 20 Gait: Pt to ambulate to 280 ft @ supervision c LRAD to increase tolerance. Balance: Pt to improve standing S/D balance to G+/G+ to reduce risk from falls. ROM/Strength: To improve B LE mm strength 2-3 mm increments for stability. - OT GOALS Air Drill Operator Goals Days: 20 Mobility for ADL's: Pt will improve toilet t/f independently with AE as needed Safety Awareness: Pt will demonstrate G safety awareness to decrease fall risk Dressing: Pt will perform UB/LB dressing independently with AE as needed. Bathing: Pt will improve bathing skills to independent level Upper Ext. Strength/Use: Pt will increase BUE strength to 5/5 to increase ADL,t/f and mobility Other: Pt will imporve F.A.T. to G to increase efficiency with ADL Short Term Goals Days: 10 Mobility for ADL's: Pt will improve toilet t/f w/supv A with AE as needed Dressing: Pt will perform UB/LB dressing w/supv A with AE as needed. Bathing: Pt will improve bathing skills w/supv A Upper Ext. Strength/Use: Pt will increase BUE strength to 4/5 to increase ADL,t/f and mobility Other: Pt will imporve F.A.T. to F to increase efficiency with ADL - PATIENT GOALS Patient/Family Goals: return to PLOF Goals Discussed with Patient/Family: Yes Rehabilitation Potential: good Justification for Potential: high level of PLOF,G family support, Able to follow directions Weakness and Barriers: Decreased Participation - PLAN Suggested Treatment Plan: Therapeutic Activity, Self Care Training, Neuro Re- education, Therapeutic Ex with HEP, Home Management, Patient Education - FREQUENCY AND DURATION OT: 5x a week x hospital stay Expected Continuation of Care at Discharge: Home Health, Skilled Care Facility, [facility] Center
[2019-08-13] MEDS: HumuLIN R SC PRN ×2 (13:10→17:55)
[2019-08-13] MEDS: JUVEN PO SCH ×2 (13:21→20:36)
[2019-08-13] MEDS: SYNTHROID 175 mcg TAB PO SCH (16:47)
[2019-08-13] MEDS: KEFLEX CAP 500 MG PO SCH (20:35)
[2019-08-13] MEDS: TRICOR TAB 160 MG PO SCH (20:35)
[2019-08-13] MEDS: REQUIP PO SCH (20:35)
[2019-08-13] MEDS: COLACE CAP 100 MG PO SCH (20:35)
[2019-08-13] MEDS: AMBIEN PO PRN (20:37)
[2019-08-13] MEDS: SNACK - Diabetic Appropriate PO SCH ×2 (20:41)
[2019-08-14 05:19] LABS: BASOPHILS % (AUTO) 0.6 % (0.2-1.0); EOSINOPHILS # (AUTO) 1.2 x10^3/uL (0.0-0.2); EOSINOPHILS % (AUTO) 17.6 % (0.9-2.9); HEMATOCRIT 25.2 % (36.0-47.0); HEMOGLOBIN 8.5 g/dL (12.0-16.0); LYMPHOCYTES # (AUTO) 1.7 X10^3/uL (1.3-2.9); LYMPHOCYTES % (AUTO) 24.6 % (21.0-51.0); MEAN CORPUSCULAR HEMOGLOBIN 31.6 pg (27.0-34.0); MEAN CORPUSCULAR HGB CONC 33.8 g/dL (33.0-35.0); MEAN CORPUSCULAR VOLUME 93.5 fL (80.0-100.0); MEAN PLATELET VOLUME 9.8 fL (7.4-11.0); MONOCYTES # (AUTO) 0.6 x10^3/uL (0.3-0.8); MONOCYTES % (AUTO) 8.4 % (0.0-13.0); NEUTROPHILS # (AUTO) 3.4 x10^3/uL (2.2-4.8); NEUTROPHILS % (AUTO) 48.8 % (42.0-75.0); PLATELET COUNT 161 X10^3/uL (150.0-450.0); RED BLOOD COUNT 2.69 X10^6/uL (3.5-5.4); RED CELL DISTRIBUTION WIDTH 16.5 % (11.6-16.5)
[2019-08-14 05:26] LABS: ALBUMIN 2.9 g/dL (3.4-5.0); CALCIUM 8.6 mg/dL (8.5-10.1); CARBON DIOXIDE 26.1 mmol/L (21-32); COR CA(FOR HYPOALB) 9.5 mg/dL (8.5-10.1); CREATININE 1.59 mg/dL (0.55-1.02); TOTAL PROTEIN 6.5 g/dL (6.4-8.2)
[2019-08-14] MEDS ORDERED: GLUCOPHAGE ONE ×2 (08:33→16:24)
[2019-08-14] MEDS: ROCEPHIN VIAL 1 GRAM 1 G in NS 100 ML IV + SPIKE MINIBAG* 100 ML IV SCH (08:40)
[2019-08-14] MEDS: LEVEMIR SC SCH ×2 (08:43→21:41)
[2019-08-14] MEDS: GLUCOPHAGE PO SCH ×2 (08:45→16:26)
[2019-08-14] MEDS: JANUVIA PO SCH (08:45)
[2019-08-14] MEDS: MIRALAX POWDER (1 DOSE 17 G) PO SCH (08:45)
[2019-08-14] MEDS: MILK OF MAGNESIA PO SCH ×2 (08:45→21:38)
[2019-08-14] MEDS: ARIMIDEX PO SCH (08:45)
[2019-08-14] MEDS: LASIX PO SCH ×2 (08:46→16:26)
[2019-08-14] MEDS: FOLIC ACID TAB 1 MG PO SCH ×2 (08:46→21:36)
[2019-08-14] MEDS: ZESTORETIC 10/ 12.5MG PO SCH (08:47)
[2019-08-14] MEDS: GLUCOTROL PO SCH ×2 (08:47→16:27)
[2019-08-14] MEDS: FERROUS GLUCONATE PO SCH ×2 (08:47→21:36)
[2019-08-14] MEDS: NEURONTIN CAP 100 MG PO SCH ×2 (08:48→21:35)
[2019-08-14] MEDS: LIPITOR TAB 40 MG PO SCH (08:48)
[2019-08-14] MEDS: ARTIFICIAL TEARS DROPS AFFEYE SCH ×2 (08:49→08:50)
[2019-08-14] MEDS: JUVEN PO SCH ×2 (08:49→21:37)
[2019-08-14] MEDS: FIORICET TAB PO PRN (08:55)
[2019-08-14] MEDS: HumuLIN R SC PRN ×3 (12:13→21:40)
[2019-08-14] MEDS: SYNTHROID 175 mcg TAB PO SCH (16:26)
[2019-08-14] MEDS: COLACE CAP 100 MG PO SCH (21:34)
[2019-08-14] MEDS: REQUIP PO SCH (21:35)
[2019-08-14] MEDS: TRICOR TAB 160 MG PO SCH (21:35)
[2019-08-14] MEDS: AMBIEN PO PRN (21:35)
[2019-08-14] MEDS: SNACK - Diabetic Appropriate PO SCH ×2 (21:39→23:15)
[2019-08-15] MEDS ORDERED: GLUCOPHAGE ONE ×2 (05:26→16:22)
[2019-08-15] MEDS: GLUCOPHAGE PO SCH ×2 (06:33→16:43)
[2019-08-15] MEDS: LASIX PO SCH ×2 (06:35→16:44)
[2019-08-15] MEDS: GLUCOTROL PO SCH ×2 (06:35→16:44)
[2019-08-15] MEDS: HumuLIN R SC PRN ×4 (06:35→22:52)
[2019-08-15] MEDS: FIORICET TAB PO PRN (06:51)
[2019-08-15] MEDS: ROCEPHIN VIAL 1 GRAM 1 G in NS 100 ML IV + SPIKE MINIBAG* 100 ML IV SCH (10:07)
[2019-08-15] MEDS: ZESTORETIC 10/ 12.5MG PO SCH (10:08)
[2019-08-15] MEDS: FOLIC ACID TAB 1 MG PO SCH ×2 (10:09→20:40)
[2019-08-15] MEDS: ARIMIDEX PO SCH (10:09)
[2019-08-15] MEDS: JUVEN PO SCH ×2 (10:09→20:40)
[2019-08-15] MEDS: NEURONTIN CAP 100 MG PO SCH ×2 (10:09→20:40)
[2019-08-15] MEDS: JANUVIA PO SCH (10:10)
[2019-08-15] MEDS: LIPITOR TAB 40 MG PO SCH (10:10)
[2019-08-15] MEDS: LEVEMIR SC SCH ×2 (10:10→20:40)
[2019-08-15] MEDS: FERROUS GLUCONATE PO SCH ×2 (10:11→20:40)
[2019-08-15] MEDS: ARTIFICIAL TEARS DROPS AFFEYE SCH (10:11)
[2019-08-15] MEDS: MILK OF MAGNESIA PO SCH ×2 (10:12→23:51)
[2019-08-15] MEDS: MIRALAX POWDER (1 DOSE 17 G) PO SCH (10:12)
--- NOTE | 2019-08-15 14:47 | PCM.PROG ---
Progress Note - Progress Note for Day of Date of Exam: 08/15/19 - Subjective Subjective: MS.JOWERS BENITES CURRENTLY SWINGBED STATUS FOR PHYSICAL THERAPY AND ANTIBIOTIC THERAPY. SHE HAS HAD SEVERE WEAKNESS. SHE IS STATUS POST MASTECTOMY AND SPLEEN BIOPSY LAST WEEK. TODAY, SHE IS ALERT AND ORIENTED, SITTING UP IN CHAIR ON MORNING ROUNDS. SHE CONTINUES WITH WEAKNESS AND SHORTNESS OF BREATH. ON EXAMINATION, HEART IS REGULAR IN RATE AND RHYTHM. BILATERAL LUNGS ARE NOTED WITH DIMINISHED LUNG SOUNDS THROUGHOUT. ABDOMEN IS DISTENDED. SHE IS NOTED WITH NORMAL BOWEL SOUNDS IN ALL QUADRANTS. THERE IS A SERENA DRAIN IN PLACE. IT IS DUE TO BE REMOVED ON 08/19. HER VITALS THIS MORNING ARE: 98.5-86-18-99%-122/59. LABS WERE OBTAINED. ABNORMAL LAB VALUES INCLUDE THE FOLLOWING: RBC 2.69, HGB 8.5, HCT 25.2, BUN 52, CREATININE 1.59, GLUCOSE 230, ALK PHOS 127, ALBUMIN 2.9. PHYSICAL AND OCCUPATIONAL THERAPY IS WORKING WITH PATIENT. SHE IS CURRENTLY RECEIVING IV FLUIDS, ROCEPHIN 1G IV DAILY, KEFLEX, HUMULIN R SLIDING SCALE, LEVEMIR 18 UNITS SC BID, AND HOME MEDICATIONS WERE RESUMED. WE WILL CONTINUE WITH CURRENT PLAN OF CARE TODAY. OTHERWISE, WE WILL FOLLOW UP WITH AM LABS AND CONTINUE TO [facility]. - Past Medical Family Social History Past Med/Fam/Surg Hx: No changes since H&P Allergies: Allergies No Known Drug Allergies Allergy (Verified 09/21/17 07:49) - Review of Systems ROS: No change since H&P - Vital Signs and I&O's Vital Signs: Temperature 98.5 F Pulse Rate [Left Radial] 86 Pulse Rate 88 Respiratory Rate 18 Blood Pressure [Right Calf] 144/65 Blood Pressure [Left Calf] 90/51 Blood Pressure [Right Arm] 149/65 Blood Pressure [Left Arm] 122/59 O2 Sat by Pulse Oximetry 99 Intake and Output: Intake & Output 08/13/19 08/14/19 08/15/19 08/16/19 11:59 11:59 11:59 11:59 Intake Total 1060 / 1060 1490 / 1490 1210 / 1210 Output Total 20 / 20 40 / 40 15 / 15 Balance 1040 / 1040 1450 / 1450 1195 / 1195 - Physical Exam Oriented: Normal Eyes: Normal Ear: Normal Nose: Normal Throat: Normal Respiratory: Generalized, Diminished Cardiovascular: Normal. negative: S3, S4, Murmur : Normal Auscultation: Bowel Sounds: Normal Palpation: Normal Tenderness: Normal Skin: Wound, Bruising (SCATTERED BRUISING), Other (SERENA DRAIN, RIGHT SIDE MASTECTOMY ) Musculoskeletal: Normal Psychiatric: Normal Mood Description: Calm Affect: Normal Speech Pattern: Clear, Appropriate - Laboratory and Diagnostics Result Diagrams: 08/14/19 04:19 08/14/19 04:19 Labs: Laboratory WBC 7.0 X10^3/uL (3.6-10.0) 08/14/19 04:19 RBC 2.69 X10^6/uL (3.5-5.4) L 08/14/19 04: Hgb 8.5 g/dL (12.0-16.0) L 08/14/19 04:19 Hct 25.2 % (36.0-47.0) L 08/14/19 04:19 MCV 93.5 fL (80.0-100.0) 08/14/19 04: MCH 31.6 pg (27.0-34.0) 08/14/19 04:19 MCHC 33.8 g/dL (33.0-35.0) 08/14/19 04: RDW 16.5 % (11.6-16.5) 08/14/19 04:19 Plt Count 161 X10^3/uL (150.0-450.0) 08/14/19 04:19 MPV 9.8 fL (7.4-11.0) 08/14/19 04: Neut % (Auto) 48.8 % (42.0-75.0) 08/14/19 04:19 Lymph % (Auto) 24.6 % (21.0-51.0) 08/14/19 04:19 [place] % (Auto) 8.4 % (0.0-13.0) 08/14/19 04: Eos % (Auto) 17.6 % (0.9-2.9) H 08/14/19 04:19 Baso % (Auto) 0.6 % (0.2-1.0) 08/14/19 04:19 Neut # (Auto) 3.4 x10^3/uL (2.2-4.8) 08/14/19 04:19 Lymph # (Auto) 1.7 X10^3/uL (1.3-2.9) 08/14/19 04:19 [place] # (Auto) 0.6 x10^3/uL (0.3-0.8) 08/14/19 04:19 Eos # (Auto) 1.2 x10^3/uL (0.0-0.2) H 08/14/19 04:19 Baso # (Auto) 0.0 X10^3/uL (0.0-0.1) 08/14/19 04:19 Absolute Nucleated RBC 0.1 /100WBC 08/14/19 04:19 PT 13.3 SECONDS (11.8-14.3) 08/14/19 04:19 INR Target Range - 08/14/19 04:19 INR 1.05 (0.8-1.3) 08/14/19 04:19 APTT 29.6 SECONDS (22.9-36.5) 08/14/19 04:19 PTT Comment - 08/14/19 04:19 Sodium 137 mmol/L (136-145) 08/14/19 04:19 Corrected Sodium 140 mmol/L (136-145) 08/14/19 04:19 Potassium 4.1 mmol/L (3.5-5.1) 08/14/19 04:19 Chloride 101 mmol/L (98-107) 08/14/19 04:19 Carbon Dioxide 26.1 mmol/L (21-32) 08/14/19 04:19 BUN 52 mg/dL (7-18) H 08/14/19 04:19 Creatinine 1.59 mg/dL (0.55-1.02) H 08/14/19 04:19 Est GFR (MDRD) Af Amer 41 (>60) L 08/14/19 04:19 Est GFR (MDRD) Non-Af 34 (>60) L 08/14/19 04:19 Glucose 230 mg/dL (65-99) H 08/14/19 04:19 POC Glucose (mg/dL) 243 mg/dL (65-99) H 08/15/19 11:37 Calcium 8.6 mg/dL (8.5-10.1) 08/14/19 04:19 Corrected Calcium 9.5 mg/dL (8.5-10.1) 08/14/19 04:19 Total Bilirubin 0.30 mg/dL (0.2-1.0) 08/14/19 04:19 AST 34 Units/L (15-37) 08/14/19 04:19 ALT 66 Units/L (12-78) 08/14/19 04:19 Alkaline Phosphatase 127 Units/L (46-116) H 08/14/19 04:19 Total Protein 6.5 g/dL (6.4-8.2) 08/14/19 04:19 Albumin 2.9 g/dL (3.4-5.0) L 08/14/19 04:19 Globulin 3.6 g/dL (2.5-4.5) 08/14/19 04:19 Albumin/Globulin Ratio 0.8 Ratio (1.1-2.1) L 08/14/19 04:19 - Plan (1) Urinary tract infection Status: Acute Qualifiers: (2) Status post mastectomy Status: Acute Qualifiers: Laterality: right (3) Diabetes mellitus, type 2 Status: Chronic Qualifiers: Diabetes mellitus [facility] insulin use: with vermin exterminator use Diabetes mellitus complication status: without complication Qualified Code(s): E11.9 - Type 2 diabetes mellitus without complications; Z79.4 - termite inspector (current) use of insulin (4) Shortness of breath Status: Acute
[2019-08-15] MEDS: SYNTHROID 175 mcg TAB PO SCH (16:44)
[2019-08-15] MEDS: REQUIP PO SCH (20:40)
[2019-08-15] MEDS: AMBIEN PO PRN (20:40)
[2019-08-15] MEDS: COLACE CAP 100 MG PO SCH (20:40)
[2019-08-15] MEDS: TRICOR TAB 160 MG PO SCH (20:40)
[2019-08-15] MEDS: SNACK - Diabetic Appropriate PO SCH (23:45)
[2019-08-16] MEDS ORDERED: GLUCOPHAGE ONE ×2 (05:02→16:43)
[2019-08-16] MEDS: GLUCOPHAGE PO SCH ×2 (06:05→16:49)
[2019-08-16] MEDS: GLUCOTROL PO SCH ×2 (06:06→16:49)
[2019-08-16] MEDS: LASIX PO SCH ×2 (06:06→16:50)
[2019-08-16] MEDS: HumuLIN R SC PRN ×4 (06:34→22:53)
[2019-08-16] MEDS: FERROUS GLUCONATE PO SCH ×2 (10:44→21:50)
[2019-08-16] MEDS: ARTIFICIAL TEARS DROPS AFFEYE SCH (10:44)
[2019-08-16] MEDS: ARIMIDEX PO SCH (10:44)
[2019-08-16] MEDS: FOLIC ACID TAB 1 MG PO SCH ×2 (10:44→21:50)
[2019-08-16] MEDS: JANUVIA PO SCH (10:45)
[2019-08-16] MEDS: JUVEN PO SCH ×2 (10:45→22:50)
[2019-08-16] MEDS: LEVEMIR SC SCH ×2 (10:45→21:51)
[2019-08-16] MEDS: LIPITOR TAB 40 MG PO SCH (10:46)
[2019-08-16] MEDS: NEURONTIN CAP 100 MG PO SCH ×2 (10:46→21:49)
[2019-08-16] MEDS: MIRALAX POWDER (1 DOSE 17 G) PO SCH (10:46)
[2019-08-16] MEDS: ROCEPHIN VIAL 1 GRAM 1 G in NS 100 ML IV + SPIKE MINIBAG* 100 ML IV SCH (10:46)
[2019-08-16] MEDS: MILK OF MAGNESIA PO SCH ×2 (10:46→22:51)
[2019-08-16] MEDS: ZESTORETIC 10/ 12.5MG PO SCH (10:47)
[2019-08-16] MEDS: FIORICET TAB PO PRN (10:51)
[2019-08-16] MEDS: SYNTHROID 175 mcg TAB PO SCH (16:49)
[2019-08-16] MEDS: SNACK - Diabetic Appropriate PO SCH (20:49)
[2019-08-16] MEDS ORDERED: STERILE WATER IRRIGATION IR ONE ×2 (21:28→21:31)
[2019-08-16] MEDS: COLACE CAP 100 MG PO SCH (21:49)
[2019-08-16] MEDS: REQUIP PO SCH (21:52)
[2019-08-16] MEDS: TRICOR TAB 160 MG PO SCH (22:52)
[2019-08-16] MEDS: AMBIEN PO PRN (22:53)
[2019-08-17 06:18] LABS: BASOPHILS # (AUTO) 0.1 X10^3/uL (0.0-0.1); BASOPHILS % (AUTO) 0.6 % (0.2-1.0); EOSINOPHILS # (AUTO) 1.1 x10^3/uL (0.0-0.2); EOSINOPHILS % (AUTO) 13.5 % (0.9-2.9); HEMATOCRIT 25.9 % (36.0-47.0); HEMOGLOBIN 8.7 g/dL (12.0-16.0); LYMPHOCYTES # (AUTO) 1.5 X10^3/uL (1.3-2.9); LYMPHOCYTES % (AUTO) 17.9 % (21.0-51.0); MEAN CORPUSCULAR HEMOGLOBIN 31.6 pg (27.0-34.0); MEAN CORPUSCULAR HGB CONC 33.5 g/dL (33.0-35.0); MEAN CORPUSCULAR VOLUME 94.5 fL (80.0-100.0); MEAN PLATELET VOLUME 9.9 fL (7.4-11.0); MONOCYTES # (AUTO) 0.6 x10^3/uL (0.3-0.8); MONOCYTES % (AUTO) 7.5 % (0.0-13.0); NEUTROPHILS % (AUTO) 60.5 % (42.0-75.0); PLATELET COUNT 146 X10^3/uL (150.0-450.0); RED BLOOD COUNT 2.74 X10^6/uL (3.5-5.4); WHITE BLOOD COUNT 8.2 X10^3/uL (3.6-10.0)
[2019-08-17 06:32] LABS: CALCIUM 8.8 mg/dL (8.5-10.1); CARBON DIOXIDE 26.7 mmol/L (21-32); COR CA(FOR HYPOALB) 9.6 mg/dL (8.5-10.1); CREATININE 1.27 mg/dL (0.55-1.02); TOTAL PROTEIN 6.8 g/dL (6.4-8.2)
[2019-08-17] MEDS: HumuLIN R SC PRN ×3 (06:35→16:43)
[2019-08-17] MEDS ORDERED: GLUCOPHAGE ONE ×2 (08:35→16:33)
[2019-08-17] MEDS: LEVEMIR SC SCH ×2 (08:47→21:43)
[2019-08-17] MEDS: JUVEN PO SCH ×2 (08:48→20:50)
[2019-08-17] MEDS: ROCEPHIN VIAL 1 GRAM 1 G in NS 100 ML IV + SPIKE MINIBAG* 100 ML IV SCH (08:48)
[2019-08-17] MEDS: JANUVIA PO SCH (08:49)
[2019-08-17] MEDS: ARIMIDEX PO SCH (08:49)
[2019-08-17] MEDS: LASIX PO SCH ×2 (08:50→16:35)
[2019-08-17] MEDS: GLUCOPHAGE PO SCH ×2 (08:50→16:35)
[2019-08-17] MEDS: FERROUS GLUCONATE PO SCH ×2 (08:51→20:49)
[2019-08-17] MEDS: NEURONTIN CAP 100 MG PO SCH ×2 (08:51→20:50)
[2019-08-17] MEDS: GLUCOTROL PO SCH ×2 (08:51→16:35)
[2019-08-17] MEDS: FOLIC ACID TAB 1 MG PO SCH ×2 (08:52→20:50)
[2019-08-17] MEDS: LIPITOR TAB 40 MG PO SCH (08:52)
[2019-08-17] MEDS: MIRALAX POWDER (1 DOSE 17 G) PO SCH (08:52)
[2019-08-17] MEDS: ZESTORETIC 10/ 12.5MG PO SCH (08:52)
[2019-08-17] MEDS: ARTIFICIAL TEARS DROPS AFFEYE SCH (08:52)
[2019-08-17] MEDS: MILK OF MAGNESIA PO SCH ×2 (08:53→20:50)
[2019-08-17] MEDS: FIORICET TAB PO PRN (11:52)
[2019-08-17] MEDS ORDERED: PROCTOSOL HC CRM 2.5% TOP PRN (14:50)
[2019-08-17] MEDS ORDERED: PREPARATION H OINT RECTAL PRN (14:50)
[2019-08-17] MEDS: SYNTHROID 175 mcg TAB PO SCH (16:34)
[2019-08-17] MEDS: SNACK - Diabetic Appropriate PO SCH (20:36)
[2019-08-17] MEDS: COLACE CAP 100 MG PO SCH ×2 (20:48)
[2019-08-17] MEDS: REQUIP PO SCH (20:51)
[2019-08-17] MEDS: TRICOR TAB 160 MG PO SCH (20:51)
[2019-08-18] MEDS ORDERED: GLUCOPHAGE ONE ×2 (05:05→16:53)
[2019-08-18] MEDS: GLUCOPHAGE PO SCH ×2 (06:17→16:56)
[2019-08-18] MEDS: GLUCOTROL PO SCH ×2 (06:18→16:56)
[2019-08-18] MEDS: LASIX PO SCH ×2 (06:18→16:56)
[2019-08-18] MEDS: HumuLIN R SC PRN ×3 (06:19→16:58)
[2019-08-18] MEDS: ARIMIDEX PO SCH (08:27)
[2019-08-18] MEDS: NEURONTIN CAP 100 MG PO SCH ×2 (08:27→20:35)
[2019-08-18] MEDS: ZESTORETIC 10/ 12.5MG PO SCH (08:27)
[2019-08-18] MEDS: ROCEPHIN VIAL 1 GRAM 1 G in NS 100 ML IV + SPIKE MINIBAG* 100 ML IV SCH (08:27)
[2019-08-18] MEDS: FOLIC ACID TAB 1 MG PO SCH ×2 (08:28→20:34)
[2019-08-18] MEDS: ARTIFICIAL TEARS DROPS AFFEYE SCH (08:28)
[2019-08-18] MEDS: FERROUS GLUCONATE PO SCH ×2 (08:28→20:35)
[2019-08-18] MEDS: LIPITOR TAB 40 MG PO SCH (08:28)
[2019-08-18] MEDS: JANUVIA PO SCH (08:28)
[2019-08-18] MEDS: LEVEMIR SC SCH ×2 (08:29→20:38)
[2019-08-18] MEDS: JUVEN PO SCH ×2 (08:29→20:35)
[2019-08-18] MEDS: MIRALAX POWDER (1 DOSE 17 G) PO SCH (08:30)
[2019-08-18] MEDS: MILK OF MAGNESIA PO SCH ×2 (08:30→20:36)
[2019-08-18] MEDS: FIORICET TAB PO PRN (09:54)
[2019-08-18] MEDS: SYNTHROID 175 mcg TAB PO SCH (16:55)
[2019-08-18] MEDS: AMBIEN PO PRN (20:34)
[2019-08-18] MEDS: TRICOR TAB 160 MG PO SCH (20:35)
[2019-08-18] MEDS: REQUIP PO SCH (20:35)
[2019-08-18] MEDS: COLACE CAP 100 MG PO SCH (20:36)
[2019-08-18] MEDS: SNACK - Diabetic Appropriate PO SCH (20:41)
[2019-08-19] MEDS ORDERED: GLUCOPHAGE ONE ×2 (04:55→08:33)
[2019-08-19] MEDS: GLUCOPHAGE PO SCH ×2 (06:05→16:40)
[2019-08-19] MEDS: GLUCOTROL PO SCH ×2 (06:05→16:38)
[2019-08-19] MEDS: LASIX PO SCH ×2 (06:05→16:41)
[2019-08-19] MEDS: HumuLIN R SC PRN ×3 (06:15→22:04)
[2019-08-19] MEDS: ZESTORETIC 10/ 12.5MG PO SCH ×2 (07:00→09:00)
[2019-08-19] MEDS: ARTIFICIAL TEARS DROPS AFFEYE SCH ×2 (09:00→16:47)
[2019-08-19] MEDS: LEVEMIR SC SCH ×2 (09:00→20:49)
[2019-08-19] MEDS: ARIMIDEX PO SCH ×2 (13:20→16:52)
[2019-08-19] MEDS: ROCEPHIN VIAL 1 GRAM 1 G in NS 100 ML IV + SPIKE MINIBAG* 100 ML IV SCH (16:36)
[2019-08-19] MEDS: SYNTHROID 175 mcg TAB PO SCH (16:38)
[2019-08-19] MEDS: FIORICET TAB PO PRN (16:39)
[2019-08-19] MEDS: JANUVIA PO SCH (16:40)
[2019-08-19] MEDS: LIPITOR TAB 40 MG PO SCH (16:40)
[2019-08-19] MEDS: FOLIC ACID TAB 1 MG PO SCH ×2 (16:40→20:48)
[2019-08-19] MEDS: NEURONTIN CAP 100 MG PO SCH ×2 (16:40→20:49)
[2019-08-19] MEDS: FERROUS GLUCONATE PO SCH ×2 (16:41→20:48)
[2019-08-19] MEDS: MIRALAX POWDER (1 DOSE 17 G) PO SCH (16:43)
[2019-08-19] MEDS: MILK OF MAGNESIA PO SCH ×2 (16:43→20:49)
[2019-08-19] MEDS: JUVEN PO SCH ×2 (16:46→20:48)
[2019-08-19] MEDS: SNACK - Diabetic Appropriate PO SCH (20:47)
[2019-08-19] MEDS: COLACE CAP 100 MG PO SCH (20:48)
[2019-08-19] MEDS: REQUIP PO SCH (20:50)
[2019-08-19] MEDS: TRICOR TAB 160 MG PO SCH (20:50)
[2019-08-19] MEDS: AMBIEN PO PRN (21:15)
[2019-08-20] MEDS ORDERED: GLUCOPHAGE ONE ×2 (06:16→16:45)
[2019-08-20] MEDS: GLUCOPHAGE PO SCH ×2 (06:25→16:59)
[2019-08-20] MEDS: HumuLIN R SC PRN ×4 (06:26→21:05)
[2019-08-20] MEDS: GLUCOTROL PO SCH ×2 (06:26→16:59)
[2019-08-20] MEDS: LASIX PO SCH ×2 (06:26→16:59)
[2019-08-20 06:32] LABS: BASOPHILS % (AUTO) 0.7 % (0.2-1.0); EOSINOPHILS # (AUTO) 0.6 x10^3/uL (0.0-0.2); EOSINOPHILS % (AUTO) 9.3 % (0.9-2.9); HEMATOCRIT 25.4 % (36.0-47.0); HEMOGLOBIN 8.5 g/dL (12.0-16.0); LYMPHOCYTES # (AUTO) 1.7 X10^3/uL (1.3-2.9); MEAN CORPUSCULAR HEMOGLOBIN 31.3 pg (27.0-34.0); MEAN CORPUSCULAR HGB CONC 33.4 g/dL (33.0-35.0); MEAN CORPUSCULAR VOLUME 93.6 fL (80.0-100.0); MEAN PLATELET VOLUME 9.3 fL (7.4-11.0); MONOCYTES # (AUTO) 0.5 x10^3/uL (0.3-0.8); MONOCYTES % (AUTO) 7.2 % (0.0-13.0); NEUTROPHILS # (AUTO) 3.9 x10^3/uL (2.2-4.8); NEUTROPHILS % (AUTO) 57.8 % (42.0-75.0); PLATELET COUNT 147 X10^3/uL (150.0-450.0); RED BLOOD COUNT 2.71 X10^6/uL (3.5-5.4); RED CELL DISTRIBUTION WIDTH 15.9 % (11.6-16.5); WHITE BLOOD COUNT 6.7 X10^3/uL (3.6-10.0)
[2019-08-20 06:53] LABS: ALBUMIN 3.1 g/dL (3.4-5.0); CALCIUM 8.8 mg/dL (8.5-10.1); CARBON DIOXIDE 26.3 mmol/L (21-32); COR CA(FOR HYPOALB) 9.5 mg/dL (8.5-10.1); CREATININE 1.75 mg/dL (0.55-1.02); TOTAL PROTEIN 6.9 g/dL (6.4-8.2)
--- NOTE | 2019-08-20 09:14 | RAD ---
HISTORY: Abdominal distension. Diminished lung sounds, recent mastectomy. Study: Single-view chest, done portably Comparison: CT chest done 02/14/2019. Findings: There is evidence of lower neck surgery on the right with paratracheal surgical clips. There are surgical clips from right breast surgery with a drain present. Trachea is midline. There is cardiomegaly with aortic uncoiling. Innumerable bilateral pulmonary nodules are present. These are tiny. No consolidation, CHF, pleural fluid or pneumothorax is seen. Multilevel thoracic spondylosis. IMPRESSION: Innumerable tiny pulmonary nodules bilaterally. No consolidation, CHF, pleural fluid or pneumothorax is seen. Cardiomegaly with pulmonary vascular congestion. Reported By:
[2019-08-20] MEDS: LEVEMIR SC SCH ×2 (09:58→21:04)
[2019-08-20] MEDS: ROCEPHIN VIAL 1 GRAM 1 G in NS 100 ML IV + SPIKE MINIBAG* 100 ML IV SCH (10:00)
[2019-08-20] MEDS: FOLIC ACID TAB 1 MG PO SCH ×2 (10:00→21:01)
[2019-08-20] MEDS: ARIMIDEX PO SCH (10:01)
[2019-08-20] MEDS: FERROUS GLUCONATE PO SCH ×2 (10:01→21:02)
[2019-08-20] MEDS: NEURONTIN CAP 100 MG PO SCH ×2 (10:01→21:01)
[2019-08-20] MEDS: JANUVIA PO SCH (10:01)
[2019-08-20] MEDS: LIPITOR TAB 40 MG PO SCH (10:01)
[2019-08-20] MEDS: ZESTORETIC 10/ 12.5MG PO SCH (10:02)
[2019-08-20] MEDS: ARTIFICIAL TEARS DROPS AFFEYE SCH (10:02)
[2019-08-20] MEDS: MILK OF MAGNESIA PO SCH ×2 (10:03→21:41)
[2019-08-20] MEDS: JUVEN PO SCH ×2 (10:03→21:41)
[2019-08-20] MEDS: MIRALAX POWDER (1 DOSE 17 G) PO SCH (10:03)
[2019-08-20] MEDS: FIORICET TAB PO PRN (11:18)
[2019-08-20] MEDS: SYNTHROID 175 mcg TAB PO SCH (16:58)
[2019-08-20] MEDS: AMBIEN PO PRN (21:01)
[2019-08-20] MEDS: TRICOR TAB 160 MG PO SCH (21:01)
[2019-08-20] MEDS: REQUIP PO SCH (21:01)
[2019-08-20] MEDS: COLACE CAP 100 MG PO SCH (21:41)
[2019-08-20] MEDS: SNACK - Diabetic Appropriate PO SCH (22:13)
[2019-08-21] MEDS ORDERED: GLUCOPHAGE ONE ×2 (06:01→16:59)
[2019-08-21] MEDS: GLUCOPHAGE PO SCH ×2 (06:14→17:03)
[2019-08-21] MEDS: GLUCOTROL PO SCH ×2 (06:14→17:02)
[2019-08-21] MEDS: LASIX PO SCH ×2 (06:15→17:07)
[2019-08-21] MEDS: HumuLIN R SC PRN ×3 (06:16→17:03)
[2019-08-21 06:24] LABS: BASOPHILS # (AUTO) 0.1 X10^3/uL (0.0-0.1); BASOPHILS % (AUTO) 0.8 % (0.2-1.0); EOSINOPHILS # (AUTO) 0.8 x10^3/uL (0.0-0.2); HEMATOCRIT 28.5 % (36.0-47.0); HEMOGLOBIN 9.5 g/dL (12.0-16.0); LYMPHOCYTES # (AUTO) 1.9 X10^3/uL (1.3-2.9); LYMPHOCYTES % (AUTO) 25.6 % (21.0-51.0); MEAN CORPUSCULAR HEMOGLOBIN 31.4 pg (27.0-34.0); MEAN CORPUSCULAR HGB CONC 33.4 g/dL (33.0-35.0); MEAN CORPUSCULAR VOLUME 93.8 fL (80.0-100.0); MEAN PLATELET VOLUME 9.3 fL (7.4-11.0); MONOCYTES # (AUTO) 0.5 x10^3/uL (0.3-0.8); MONOCYTES % (AUTO) 6.9 % (0.0-13.0); NEUTROPHILS # (AUTO) 4.2 x10^3/uL (2.2-4.8); NEUTROPHILS % (AUTO) 55.7 % (42.0-75.0); PLATELET COUNT 197 X10^3/uL (150.0-450.0); RED BLOOD COUNT 3.03 X10^6/uL (3.5-5.4); RED CELL DISTRIBUTION WIDTH 16.2 % (11.6-16.5); WHITE BLOOD COUNT 7.6 X10^3/uL (3.6-10.0)
[2019-08-21 06:31] LABS: ALANINE AMINOTRANSFERASE 54 Units/L (12-78); ALBUMIN 3.6 g/dL (3.4-5.0); ALKALINE PHOSPHATASE 128 Units/L (46-116); ASPARTATE AMINO TRANSFERASE 33 Units/L (15-37); BLOOD UREA NITROGEN 65 mg/dL (7-18); CALCIUM 8.9 mg/dL (8.5-10.1); CHLORIDE 100 mmol/L (98-107); COR NA(FOR HYPERGLY) 141 mmol/L (136-145); SODIUM 138 mmol/L (136-145); TOTAL PROTEIN 7.8 g/dL (6.4-8.2); eGFR NON BLACK RACES 36 (>60)
[2019-08-21] MEDS: ZESTORETIC 10/ 12.5MG PO SCH (09:40)
[2019-08-21] MEDS: ARIMIDEX PO SCH (09:40)
[2019-08-21] MEDS: FOLIC ACID TAB 1 MG PO SCH ×2 (09:40→20:21)
[2019-08-21] MEDS: ROCEPHIN VIAL 1 GRAM 1 G in NS 100 ML IV + SPIKE MINIBAG* 100 ML IV SCH (09:40)
[2019-08-21] MEDS: LIPITOR TAB 40 MG PO SCH (09:40)
[2019-08-21] MEDS: NEURONTIN CAP 100 MG PO SCH ×2 (09:40→20:21)
[2019-08-21] MEDS: JANUVIA PO SCH (09:42)
[2019-08-21] MEDS: FERROUS GLUCONATE PO SCH ×2 (09:42→20:22)
[2019-08-21] MEDS: JUVEN PO SCH ×2 (09:42→20:55)
[2019-08-21] MEDS: MIRALAX POWDER (1 DOSE 17 G) PO SCH (09:43)
[2019-08-21] MEDS: LEVEMIR SC SCH ×2 (09:43→20:55)
[2019-08-21] MEDS: MILK OF MAGNESIA PO SCH ×2 (09:43→20:55)
[2019-08-21] MEDS: PERCOCET TAB 5/325 MG PO PRN (09:45)
[2019-08-21] MEDS: ARTIFICIAL TEARS DROPS AFFEYE SCH (09:50)
[2019-08-21] MEDS: SYNTHROID 175 mcg TAB PO SCH (17:02)
[2019-08-21] MEDS: TRICOR TAB 160 MG PO SCH (20:21)
[2019-08-21] MEDS: AMBIEN PO PRN (20:22)
[2019-08-21] MEDS: REQUIP PO SCH (20:22)
[2019-08-21] MEDS: SNACK - Diabetic Appropriate PO SCH (20:54)
[2019-08-21] MEDS: COLACE CAP 100 MG PO SCH (20:55)
[2019-08-22] MEDS ORDERED: GLUCOPHAGE ONE ×2 (05:40→15:45)
[2019-08-22] MEDS: HumuLIN R SC PRN ×4 (05:53→20:53)
[2019-08-22] MEDS: GLUCOPHAGE PO SCH ×2 (06:06→16:01)
[2019-08-22] MEDS: LASIX PO SCH ×2 (06:07→16:01)
[2019-08-22] MEDS: GLUCOTROL PO SCH ×2 (06:07→16:02)
[2019-08-22 08:54] LABS: BASOPHILS % (AUTO) 0.6 % (0.2-1.0); EOSINOPHILS # (AUTO) 0.7 x10^3/uL (0.0-0.2); EOSINOPHILS % (AUTO) 9.5 % (0.9-2.9); HEMATOCRIT 30.8 % (36.0-47.0); HEMOGLOBIN 10.3 g/dL (12.0-16.0); LYMPHOCYTES # (AUTO) 1.4 X10^3/uL (1.3-2.9); LYMPHOCYTES % (AUTO) 18.8 % (21.0-51.0); MEAN CORPUSCULAR HEMOGLOBIN 31.5 pg (27.0-34.0); MEAN CORPUSCULAR HGB CONC 33.6 g/dL (33.0-35.0); MEAN CORPUSCULAR VOLUME 93.9 fL (80.0-100.0); MEAN PLATELET VOLUME 9.3 fL (7.4-11.0); MONOCYTES # (AUTO) 0.4 x10^3/uL (0.3-0.8); MONOCYTES % (AUTO) 5.5 % (0.0-13.0); NEUTROPHILS # (AUTO) 4.8 x10^3/uL (2.2-4.8); NEUTROPHILS % (AUTO) 65.6 % (42.0-75.0); PLATELET COUNT 207 X10^3/uL (150.0-450.0); RED BLOOD COUNT 3.28 X10^6/uL (3.5-5.4); RED CELL DISTRIBUTION WIDTH 16.2 % (11.6-16.5); WHITE BLOOD COUNT 7.3 X10^3/uL (3.6-10.0)
[2019-08-22 09:08] LABS: ALANINE AMINOTRANSFERASE 54 Units/L (12-78); ALBUMIN 3.9 g/dL (3.4-5.0); ALKALINE PHOSPHATASE 149 Units/L (46-116); ASPARTATE AMINO TRANSFERASE 36 Units/L (15-37); BLOOD UREA NITROGEN 68 mg/dL (7-18); CALCIUM 9.4 mg/dL (8.5-10.1); CARBON DIOXIDE 28.5 mmol/L (21-32); CHLORIDE 99 mmol/L (98-107); COR NA(FOR HYPERGLY) 143 mmol/L (136-145); CREATININE 1.79 mg/dL (0.55-1.02); SODIUM 138 mmol/L (136-145); TOTAL PROTEIN 8.3 g/dL (6.4-8.2); eGFR NON BLACK RACES 30 (>60)
[2019-08-22] MEDS: ARIMIDEX PO SCH (10:04)
[2019-08-22] MEDS: ROCEPHIN VIAL 1 GRAM 1 G in NS 100 ML IV + SPIKE MINIBAG* 100 ML IV SCH (10:04)
[2019-08-22] MEDS: FOLIC ACID TAB 1 MG PO SCH ×2 (10:04→20:14)
[2019-08-22] MEDS: ZESTORETIC 10/ 12.5MG PO SCH (10:04)
[2019-08-22] MEDS: LIPITOR TAB 40 MG PO SCH (10:04)
[2019-08-22] MEDS: JANUVIA PO SCH (10:04)
[2019-08-22] MEDS: NEURONTIN CAP 100 MG PO SCH ×2 (10:04→20:14)
[2019-08-22] MEDS: FERROUS GLUCONATE PO SCH ×2 (10:05→20:14)
[2019-08-22] MEDS: JUVEN PO SCH (10:05)
[2019-08-22] MEDS: LEVEMIR SC SCH ×2 (10:05→20:15)
[2019-08-22] MEDS: ARTIFICIAL TEARS DROPS AFFEYE SCH (10:05)
[2019-08-22] MEDS: MILK OF MAGNESIA PO SCH ×2 (10:06→20:54)
[2019-08-22] MEDS: MIRALAX POWDER (1 DOSE 17 G) PO SCH (10:06)
[2019-08-22] MEDS: PERCOCET TAB 5/325 MG PO PRN (10:14)
--- NOTE | 2019-08-22 15:44 | PCM.PROG ---
Progress Note - Progress Note for Day of Date of Exam: 08/20/19 - Subjective Subjective: MS.JOWERS BENITES CURRENTLY SWINGBED STATUS FOR PHYSICAL THERAPY AND ANTIBIOTIC THERAPY. SHE HAS HAD SEVERE WEAKNESS. SHE IS STATUS POST MASTECTOMY AND SPLEEN BIOPSY LAST WEEK. TODAY, SHE IS ALERT AND ORIENTED, SITTING UP IN CHAIR ON MORNING ROUNDS. SHE CONTINUES WITH WEAKNESS AND SHORTNESS OF BREATH. ON EXAMINATION, HEART IS REGULAR IN RATE AND RHYTHM. BILATERAL LUNGS ARE NOTED WITH DIMINISHED LUNG SOUNDS THROUGHOUT. ABDOMEN IS DISTENDED. SHE IS NOTED WITH NORMAL BOWEL SOUNDS IN ALL QUADRANTS. THERE IS A SERENA DRAIN IN PLACE. PT WAS SEEN [place] BY DR VERAS, SERENA DRAIN NOT REMOVED DUE TO CONTINUE BLOODY DRAINAGE, HEMATOMA TO RIGHT LATERAL SIDE OF INCISION WITHOUT REDNESS OR INCREASED WARMTH. DAILY CBC ORDERED TO MONITOR HBG AND WBC. LABS REVIEWED WITH PT AND FAMILY - Past Medical Family Social History Past Med/Fam/Surg Hx: No changes since H&P Allergies: Allergies No Known Drug Allergies Allergy (Verified 09/21/17 07:49) - Review of Systems ROS: No change since H&P - Vital Signs and I&O's Vital Signs: Temperature 98.6 F Pulse Rate [Right Brachial] 92 Pulse Rate [Left Radial] 97 Pulse Rate 92 Respiratory Rate 19 Blood Pressure [Right Calf] 135/61 Blood Pressure [Left Calf] 128/52 Blood Pressure [Right Arm] 124/66 Blood Pressure [Left Arm] 148/63 O2 Sat by Pulse Oximetry 99 Intake and Output: Intake & Output 08/20/19 08/21/19 08/22/19 08/23/19 11:59 11:59 11:59 11:59 Intake Total 1440 / 1440 1890 / 1890 1850 / 1850 Output Total 65 / 65 40 / 40 40 / 40 Balance 1375 / 1375 1850 / 1850 1810 / 1810 - Physical Exam Oriented: Normal Eyes: Normal Ear: Normal Nose: Normal Throat: Normal Respiratory: Generalized, Diminished Cardiovascular: Normal. negative: S3, S4, Murmur : Normal Auscultation: Bowel Sounds: Normal Tenderness: Normal Skin: Wound, Bruising (SCATTERED BRUISING), Other (SERENA DRAIN, RIGHT SIDE MASTECTOMY ) Musculoskeletal: Normal Psychiatric: Normal Mood Description: Calm Affect: Normal Speech Pattern: Clear, Appropriate - Laboratory and Diagnostics Result Diagrams: 08/22/19 08:41 08/22/19 08:41 Labs: Laboratory WBC 7.3 X10^3/uL (3.6-10.0) 08/22/19 08:41 RBC 3.28 X10^6/uL (3.5-5.4) L 08/22/19 08:41 Hgb 10.3 g/dL (12.0-16.0) L 08/22/19 08:41 Hct 30.8 % (36.0-47.0) L 08/22/19 08:41 MCV 93.9 fL (80.0-100.0) 08/22/19 08:41 MCH 31.5 pg (27.0-34.0) 08/22/19 08:41 MCHC 33.6 g/dL (33.0-35.0) 08/22/19 08:41 RDW 16.2 % (11.6-16.5) 08/22/19 08:41 Plt Count 207 X10^3/uL (150.0-450.0) 08/22/19 08:41 MPV 9.3 fL (7.4-11.0) 08/22/19 08:41 Neut % (Auto) 65.6 % (42.0-75.0) 08/22/19 08:41 Lymph % (Auto) 18.8 % (21.0-51.0) L 08/22/19 08:41 [place] % (Auto) 5.5 % (0.0-13.0) 08/22/19 08:41 Eos % (Auto) 9.5 % (0.9-2.9) H 08/22/19 08:41 Baso % (Auto) 0.6 % (0.2-1.0) 08/22/19 08:41 Neut # (Auto) 4.8 x10^3/uL (2.2-4.8) 08/22/19 08:41 Lymph # (Auto) 1.4 X10^3/uL (1.3-2.9) 08/22/19 08:41 [place] # (Auto) 0.4 x10^3/uL (0.3-0.8) 08/22/19 08:41 Eos # (Auto) 0.7 x10^3/uL (0.0-0.2) H 08/22/19 08:41 Baso # (Auto) 0.0 X10^3/uL (0.0-0.1) 08/22/19 08:41 Absolute Nucleated RBC 0.0 /100WBC 08/22/19 08:41 PT 13.3 SECONDS (11.8-14.3) 08/14/19 04:19 INR Target Range - 08/14/19 04:19 INR 1.05 (0.8-1.3) 08/14/19 04:19 APTT 29.6 SECONDS (22.9-36.5) 08/14/19 04:19 PTT Comment - 08/14/19 04:19 Sodium 138 mmol/L (136-145) 08/22/19 08:41 Corrected Sodium 143 mmol/L (136-145) 08/22/19 08:41 Potassium 4.7 mmol/L (3.5-5.1) 08/22/19 08:41 Chloride 99 mmol/L (98-107) 08/22/19 08:41 Carbon Dioxide 28.5 mmol/L (21-32) 08/22/19 08:41 BUN 68 mg/dL (7-18) H 08/22/19 08:41 Creatinine 1.79 mg/dL (0.55-1.02) H 08/22/19 08:41 Est GFR (MDRD) Af Amer 36 (>60) L 08/22/19 08:41 Est GFR (MDRD) Non-Af 30 (>60) L 08/22/19 08:41 Glucose 310 mg/dL (65-99) H 08/22/19 08:41 POC Glucose (mg/dL) 257 mg/dL (65-99) H 08/22/19 12:42 Calcium 9.4 mg/dL (8.5-10.1) 08/22/19 08:41 Corrected Calcium TNP 08/22/19 08:41 Total Bilirubin 0.30 mg/dL (0.2-1.0) 08/22/19 08:41 AST 36 Units/L (15-37) 08/22/19 08:41 ALT 54 Units/L (12-78) 08/22/19 08:41 Alkaline Phosphatase 149 Units/L (46-116) H 08/22/19 08:41 Total Protein 8.3 g/dL (6.4-8.2) H 08/22/19 08:41 Albumin 3.9 g/dL (3.4-5.0) 08/22/19 08:41 Globulin 4.4 g/dL (2.5-4.5) 08/22/19 08:41 Albumin/Globulin Ratio 0.9 Ratio (1.1-2.1) L 08/22/19 08:41 - Plan (1) Status post mastectomy Status: Acute Qualifiers: Laterality: right Plan: CONTINUE PT, WOUND CARE, SERENA DRAINAGE OUTPT. DAILY LABS, CBC. PAIN CONTROL. CHRONIC CARE MANAGEMENT (2) Lung nodule, multiple Status: Acute (3) Diabetes mellitus, type 2 Status: Chronic Qualifiers: Diabetes mellitus middle or intermediate school principal insulin use: with middle or intermediate school principal use Diabetes mellitus complication status: without complication Qualified Code(s): E11.9 - Type 2 diabetes mellitus without complications; Z79.4 - watermelon harvesting supervisor (current) use of insulin (4) History of breast cancer Status: Chronic (5) Hypertension Status: Chronic
--- NOTE | 2019-08-22 15:50 | PCM.PROG ---
Progress Note - Progress Note for Day of Date of Exam: 08/21/19 - Subjective Subjective: MS.JOWERS BENITES CURRENTLY SWINGBED STATUS FOR PHYSICAL THERAPY AND ANTIBIOTIC THERAPY. SHE HAS HAD SEVERE WEAKNESS. SHE IS STATUS POST MASTECTOMY AND SPLEEN BIOPSY LAST WEEK. TODAY, SHE IS ALERT AND ORIENTED, SITTING UP IN CHAIR ON MORNING ROUNDS. SHE CONTINUES WITH WEAKNESS AND SHORTNESS OF BREATH. ON EXAMINATION, HEART IS REGULAR IN RATE AND RHYTHM. BILATERAL LUNGS ARE NOTED WITH DIMINISHED LUNG SOUNDS THROUGHOUT. ABDOMEN IS DISTENDED. SHE IS NOTED WITH NORMAL BOWEL SOUNDS IN ALL QUADRANTS. THERE IS A SERENA DRAIN IN PLACE. PT WAS SEEN IN [place] BY DR VERAS, SERENA DRAIN NOT REMOVED DUE TO CONTINUE BLOODY DRAINAGE, HEMATOMA TO RIGHT LATERAL SIDE OF INCISION WITHOUT REDNESS OR INCREASED WARMTH. DAILY CBC ORDERED TO MONITOR HBG AND WBC. LABS REVIEWED WITH PT, WBC 7.36, HGB 9.5 - Past Medical Family Social History Past Med/Fam/Surg Hx: No changes since H&P Allergies: Allergies No Known Drug Allergies Allergy (Verified 09/21/17 07:49) - Review of Systems ROS: No change since H&P - Vital Signs and I&O's Vital Signs: Temperature 98.6 F Pulse Rate [Right Brachial] 92 Pulse Rate [Left Radial] 97 Pulse Rate 92 Respiratory Rate 19 Blood Pressure [Right Calf] 135/61 Blood Pressure [Left Calf] 128/52 Blood Pressure [Right Arm] 124/66 Blood Pressure [Left Arm] 148/63 O2 Sat by Pulse Oximetry 99 Intake and Output: Intake & Output 08/20/19 08/21/19 08/22/19 08/23/19 11:59 11:59 11:59 11:59 Intake Total 1440 / 1440 1890 / 1890 1850 / 1850 Output Total 65 / 65 40 / 40 40 / 40 Balance 1375 / 1375 1850 / 1850 1810 / 1810 - Physical Exam Oriented: Normal Eyes: Normal Ear: Normal Nose: Normal Throat: Normal Respiratory: Generalized, Diminished Cardiovascular: Normal. negative: S3, S4, Murmur : Normal Auscultation: Bowel Sounds: Normal Tenderness: Normal Skin: Wound, Bruising (SCATTERED BRUISING), Other (SERENA DRAIN, RIGHT SIDE MASTECTOMY ) Musculoskeletal: Normal Psychiatric: Normal Mood Description: Calm Affect: Normal Speech Pattern: Clear, Appropriate - Laboratory and Diagnostics Result Diagrams: 08/22/19 08:41 11/21/19 08:41 Labs: Laboratory WBC 7.3 X10^3/uL (3.6-10.0) 08/22/19 08:41 RBC 3.28 X10^6/uL (3.5-5.4) L 08/22/19 08:41 Hgb 10.3 g/dL (12.0-16.0) L 08/22/19 08:41 Hct 30.8 % (36.0-47.0) L 08/22/19 08:41 MCV 93.9 fL (80.0-100.0) 08/22/19 08:41 MCH 31.5 pg (27.0-34.0) 08/22/19 08:41 MCHC 33.6 g/dL (33.0-35.0) 08/22/19 08:41 RDW 16.2 % (11.6-16.5) 08/22/19 08:41 Plt Count 207 X10^3/uL (150.0-450.0) 08/22/19 08:41 MPV 9.3 fL (7.4-11.0) 08/22/19 08:41 Neut % (Auto) 65.6 % (42.0-75.0) 08/22/19 08:41 Lymph % (Auto) 18.8 % (21.0-51.0) L 08/22/19 08:41 [place] % (Auto) 5.5 % (0.0-13.0) 08/22/19 08:41 Eos % (Auto) 9.5 % (0.9-2.9) H 08/22/19 08:41 Baso % (Auto) 0.6 % (0.2-1.0) 08/22/19 08:41 Neut # (Auto) 4.8 x10^3/uL (2.2-4.8) 08/22/19 08:41 Lymph # (Auto) 1.4 X10^3/uL (1.3-2.9) 08/22/19 08:41 [place] # (Auto) 0.4 x10^3/uL (0.3-0.8) 08/22/19 08:41 Eos # (Auto) 0.7 x10^3/uL (0.0-0.2) H 08/22/19 08:41 Baso # (Auto) 0.0 X10^3/uL (0.0-0.1) 08/22/19 08:41 Absolute Nucleated RBC 0.0 /100WBC 08/22/19 08:41 PT 13.3 SECONDS (11.8-14.3) 08/14/19 04:19 INR Target Range - 08/14/19 04:19 INR 1.05 (0.8-1.3) 08/14/19 04:19 APTT 29.6 SECONDS (22.9-36.5) 08/14/19 04:19 PTT Comment - 08/14/19 04:19 Sodium 138 mmol/L (136-145) 08/22/19 08:41 Corrected Sodium 143 mmol/L (136-145) 08/22/19 08:41 Potassium 4.7 mmol/L (3.5-5.1) 08/22/19 08:41 Chloride 99 mmol/L (98-107) 08/22/19 08:41 Carbon Dioxide 28.5 mmol/L (21-32) 08/22/19 08:41 BUN 68 mg/dL (7-18) H 08/22/19 08:41 Creatinine 1.79 mg/dL (0.55-1.02) H 08/22/19 08:41 Est GFR (MDRD) Af Amer 36 (>60) L 08/22/19 08:41 Est GFR (MDRD) Non-Af 30 (>60) L 08/22/19 08:41 Glucose 310 mg/dL (65-99) H 08/22/19 08:41 POC Glucose (mg/dL) 257 mg/dL (65-99) H 08/22/19 12:42 Calcium 9.4 mg/dL (8.5-10.1) 08/22/19 08:41 Corrected Calcium TNP 08/22/19 08:41 Total Bilirubin 0.30 mg/dL (0.2-1.0) 08/22/19 08:41 AST 36 Units/L (15-37) 08/22/19 08:41 ALT 54 Units/L (12-78) 08/22/19 08:41 Alkaline Phosphatase 149 Units/L (46-116) H 08/22/19 08:41 Total Protein 8.3 g/dL (6.4-8.2) H 08/22/19 08:41 Albumin 3.9 g/dL (3.4-5.0) 08/22/19 08:41 Globulin 4.4 g/dL (2.5-4.5) 08/22/19 08:41 Albumin/Globulin Ratio 0.9 Ratio (1.1-2.1) L 08/22/19 08:41 - Plan (1) Status post mastectomy Status: Acute Qualifiers: Laterality: right Plan: CONTINUE PT, WOUND CARE, SERENA DRAINAGE OUTPT. DAILY LABS, CBC. PAIN CONTROL. CHRONIC CARE MANAGEMENT (2) Lung nodule, multiple Status: Acute (3) Diabetes mellitus, type 2 Status: Chronic Qualifiers: Diabetes mellitus custodial insulin use: with termite control servicer use Diabetes mellitus complication status: without complication Qualified Code(s): E11.9 - Type 2 diabetes mellitus without complications; Z79.4 - prison (current) use of insulin (4) History of breast cancer Status: Chronic (5) Hypertension Status: Chronic
[2019-08-22] MEDS: SYNTHROID 175 mcg TAB PO SCH (16:00)
[2019-08-22] MEDS: AMBIEN PO PRN (20:14)
[2019-08-22] MEDS: TRICOR TAB 160 MG PO SCH (20:14)
[2019-08-22] MEDS: REQUIP PO SCH (20:14)
[2019-08-22] MEDS: SNACK - Diabetic Appropriate PO SCH (20:53)
[2019-08-22] MEDS: COLACE CAP 100 MG PO SCH (20:54)
[2019-08-23] MEDS ORDERED: GLUCOPHAGE ONE ×2 (05:28→17:56)
[2019-08-23 05:44] LABS: BASOPHILS % (AUTO) 0.8 % (0.2-1.0); EOSINOPHILS # (AUTO) 0.7 x10^3/uL (0.0-0.2); EOSINOPHILS % (AUTO) 11.3 % (0.9-2.9); HEMOGLOBIN 8.8 g/dL (12.0-16.0); LYMPHOCYTES # (AUTO) 1.3 X10^3/uL (1.3-2.9); MEAN CORPUSCULAR HEMOGLOBIN 31.9 pg (27.0-34.0); MEAN CORPUSCULAR HGB CONC 33.6 g/dL (33.0-35.0); MEAN CORPUSCULAR VOLUME 94.7 fL (80.0-100.0); MEAN PLATELET VOLUME 9.7 fL (7.4-11.0); MONOCYTES # (AUTO) 0.4 x10^3/uL (0.3-0.8); MONOCYTES % (AUTO) 7.3 % (0.0-13.0); NEUTROPHILS # (AUTO) 3.5 x10^3/uL (2.2-4.8); NEUTROPHILS % (AUTO) 59.6 % (42.0-75.0); PLATELET COUNT 146 X10^3/uL (150.0-450.0); RED BLOOD COUNT 2.75 X10^6/uL (3.5-5.4); RED CELL DISTRIBUTION WIDTH 16.1 % (11.6-16.5)
[2019-08-23 05:57] LABS: ALBUMIN 3.2 g/dL (3.4-5.0); CARBON DIOXIDE 26.8 mmol/L (21-32); COR CA(FOR HYPOALB) 9.6 mg/dL (8.5-10.1); CREATININE 1.44 mg/dL (0.55-1.02); TOTAL PROTEIN 6.9 g/dL (6.4-8.2)
[2019-08-23] MEDS: GLUCOPHAGE PO SCH ×2 (06:03→18:00)
[2019-08-23] MEDS: GLUCOTROL PO SCH ×2 (06:03→18:00)
[2019-08-23] MEDS: LASIX PO SCH ×2 (06:03→18:00)
[2019-08-23] MEDS: HumuLIN R SC PRN (06:04)
[2019-08-23] MEDS: FERROUS GLUCONATE PO SCH ×3 (07:12→20:31)
[2019-08-23] MEDS: FOLIC ACID TAB 1 MG PO SCH ×3 (07:12→20:31)
[2019-08-23] MEDS: ARIMIDEX PO SCH ×2 (07:12→09:22)
[2019-08-23] MEDS: JANUVIA PO SCH ×2 (07:12→09:24)
[2019-08-23] MEDS: NEURONTIN CAP 100 MG PO SCH ×3 (07:12→20:31)
[2019-08-23] MEDS: ARTIFICIAL TEARS DROPS AFFEYE SCH (07:13)
[2019-08-23] MEDS: PERCOCET TAB 5/325 MG PO PRN ×2 (07:13→18:01)
[2019-08-23] MEDS: ZESTORETIC 10/ 12.5MG PO SCH ×2 (07:13→09:26)
[2019-08-23] MEDS: LIPITOR TAB 40 MG PO SCH ×2 (07:13→09:25)
[2019-08-23] MEDS: LEVEMIR SC SCH ×3 (07:16→20:31)
[2019-08-23] MEDS: ROCEPHIN VIAL 1 GRAM 1 G in NS 100 ML IV + SPIKE MINIBAG* 100 ML IV SCH ×2 (07:17→09:26)
[2019-08-23] MEDS: MILK OF MAGNESIA PO SCH ×2 (09:25→20:53)
[2019-08-23] MEDS: MIRALAX POWDER (1 DOSE 17 G) PO SCH (09:25)
[2019-08-23] MEDS: SYNTHROID 175 mcg TAB PO SCH (16:55)
--- NOTE | 2019-08-23 19:43 | PCM.PROG ---
Progress Note - Progress Note for Day of Date of Exam: 08/23/19 - Subjective Subjective: MS.JOWERS BENITES CURRENTLY SWINGBED STATUS FOR PHYSICAL THERAPY AND ANTIBIOTIC THERAPY. SHE HAS HAD SEVERE WEAKNESS. SHE IS STATUS POST MASTECTOMY AND SPLEEN BIOPSY LAST WEEK. TODAY, SHE IS ALERT AND ORIENTED, SITTING UP IN CHAIR ON MORNING ROUNDS. SHE CONTINUES WITH WEAKNESS AND SHORTNESS OF BREATH. ON EXAMINATION, HEART IS REGULAR IN RATE AND RHYTHM. BILATERAL LUNGS ARE NOTED WITH DIMINISHED LUNG SOUNDS THROUGHOUT. ABDOMEN IS DISTENDED. SHE IS NOTED WITH NORMAL BOWEL SOUNDS IN ALL QUADRANTS. THERE IS A SERENA DRAIN IN PLACE. PT WAS SEEN IN [place] BY DR VERAS, SERENA DRAIN NOT REMOVED DUE TO CONTINUE BLOODY DRAINAGE, HEMATOMA TO RIGHT LATERAL SIDE OF INCISION WITHOUT REDNESS OR INCREASED WARMTH. PT IS BEING TRANSFERRED TO [place] TODAY FOR SERENA DRAIN TO BE REMOVED PER HER SURGEON. REVIEWED LABS WITH PT - Past Medical Family Social History Past Med/Fam/Surg Hx: No changes since H&P Allergies: Allergies No Known Drug Allergies Allergy (Verified 09/21/17 07:49) - Review of Systems ROS: No change since H&P - Vital Signs and I&O's Vital Signs: Temperature 97.5 F Pulse Rate [Right Brachial] 92 Pulse Rate [Left Radial] 88 Pulse Rate 92 Respiratory Rate 18 Blood Pressure [Right Calf] 135/61 Blood Pressure [Left Calf] 166/97 Blood Pressure [Right Arm] 124/66 Blood Pressure [Left Arm] 159/69 O2 Sat by Pulse Oximetry 95 Intake and Output: Intake & Output 08/21/19 08/22/19 08/23/19 08/24/19 11:59 11:59 11:59 11:59 Intake Total 1890 / 1890 1850 / 1850 740 / 740 480 / 480 Output Total 40 / 40 40 / 40 45 / 45 140 / 140 Balance 1850 / 1850 1810 / 1810 695 / 695 340 / 340 - Physical Exam Oriented: Normal Eyes: Normal Ear: Normal Nose: Normal Throat: Normal Respiratory: Generalized, Diminished Cardiovascular: Normal. negative: S3, S4, Murmur : Normal Auscultation: Bowel Sounds: Normal Tenderness: Normal Skin: Wound, Bruising (SCATTERED BRUISING), Other (SERENA DRAIN, RIGHT SIDE MASTECTOMY ) Musculoskeletal: Normal Psychiatric: Normal Mood Description: Calm Affect: Normal Speech Pattern: Clear, Appropriate - Laboratory and Diagnostics Result Diagrams: 08/23/19 05:10 08/23/19 05:10 Labs: Laboratory WBC 6.0 X10^3/uL (3.6-10.0) 08/23/19 05:10 RBC 2.75 X10^6/uL (3.5-5.4) L 08/23/19 05:10 Hgb 8.8 g/dL (12.0-16.0) L 08/23/19 05:10 Hct 26.0 % (36.0-47.0) L 08/23/19 05:10 MCV 94.7 fL (80.0-100.0) 08/23/19 05:10 MCH 31.9 pg (27.0-34.0) 08/23/19 05:10 MCHC 33.6 g/dL (33.0-35.0) 08/23/19 05:10 RDW 16.1 % (11.6-16.5) 08/23/19 05:10 Plt Count 146 X10^3/uL (150.0-450.0) L 08/23/19 05:10 MPV 9.7 fL (7.4-11.0) 08/23/19 05:10 Neut % (Auto) 59.6 % (42.0-75.0) 08/23/19 05:10 Lymph % (Auto) 21.0 % (21.0-51.0) 08/23/19 05:10 [place] % (Auto) 7.3 % (0.0-13.0) 08/23/19 05:10 Eos % (Auto) 11.3 % (0.9-2.9) H 08/23/19 05:10 Baso % (Auto) 0.8 % (0.2-1.0) 08/23/19 05:10 Neut # (Auto) 3.5 x10^3/uL (2.2-4.8) 08/23/19 05:10 Lymph # (Auto) 1.3 X10^3/uL (1.3-2.9) 08/23/19 05:10 [place] # (Auto) 0.4 x10^3/uL (0.3-0.8) 08/23/19 05:10 Eos # (Auto) 0.7 x10^3/uL (0.0-0.2) H 08/23/19 05:10 Baso # (Auto) 0.0 X10^3/uL (0.0-0.1) 08/23/19 05:10 Absolute Nucleated RBC 0.0 /100WBC 08/23/19 05:10 PT 13.3 SECONDS (11.8-14.3) 08/14/19 04:19 INR Target Range - 08/14/19 04:19 INR 1.05 (0.8-1.3) 08/14/19 04:19 APTT 29.6 SECONDS (22.9-36.5) 08/14/19 04:19 PTT Comment - 08/14/19 04:19 Sodium 139 mmol/L (136-145) 08/23/19 05:10 Corrected Sodium 143 mmol/L (136-145) 08/23/19 05:10 Potassium 4.7 mmol/L (3.5-5.1) 08/23/19 05:10 Chloride 104 mmol/L (98-107) 08/23/19 05:10 Carbon Dioxide 26.8 mmol/L (21-32) 08/23/19 05:10 BUN 64 mg/dL (7-18) H 08/23/19 05:10 Creatinine 1.44 mg/dL (0.55-1.02) H 08/23/19 05:10 Est GFR (MDRD) Af Amer 46 (>60) L 08/23/19 05:10 Est GFR (MDRD) Non-Af 38 (>60) L 08/23/19 05:10 Glucose 260 mg/dL (65-99) H 08/23/19 05:10 POC Glucose (mg/dL) 239 mg/dL (65-99) H 08/23/19 05:23 Calcium 9.0 mg/dL (8.5-10.1) 08/23/19 05:10 Corrected Calcium 9.6 mg/dL (8.5-10.1) 08/23/19 05:10 Total Bilirubin 0.20 mg/dL (0.2-1.0) 08/23/19 05:10 AST 26 Units/L (15-37) 08/23/19 05:10 ALT 46 Units/L (12-78) 08/23/19 05:10 Alkaline Phosphatase 113 Units/L (46-116) 08/23/19 05:10 Total Protein 6.9 g/dL (6.4-8.2) 08/23/19 05:10 Albumin 3.2 g/dL (3.4-5.0) L 08/23/19 05:10 Globulin 3.7 g/dL (2.5-4.5) 08/23/19 05:10 Albumin/Globulin Ratio 0.9 Ratio (1.1-2.1) L 08/23/19 05:10 - Plan (1) Status post mastectomy Status: Acute Qualifiers: Laterality: right Plan: CONTINUE PT, WOUND CARE, SERENA DRAINAGE OUTPT. DAILY LABS, CBC. PAIN CONT ROL. CHRONIC CARE MANAGEMENT (2) Lung nodule, multiple Status: Acute (3) Diabetes mellitus, type 2 Status: Chronic Qualifiers: Diabetes mellitus intermediate insulin use: with salvage determiner use Diabetes mellitus complication status: without complication Qualified Code(s): E11.9 - Type 2 diabetes mellitus without complications; Z79.4 - keno terminal operator (current) use of insulin (4) History of breast cancer Status: Chronic (5) Hypertension Status: Chronic
[2019-08-23] MEDS: AMBIEN PO PRN (20:31)
[2019-08-23] MEDS: REQUIP PO SCH (20:31)
[2019-08-23] MEDS: TRICOR TAB 160 MG PO SCH (20:31)
[2019-08-23] MEDS: COLACE CAP 100 MG PO SCH (20:53)
[2019-08-23] MEDS: SNACK - Diabetic Appropriate PO SCH (20:53)
[2019-08-24] MEDS ORDERED: GLUCOPHAGE ONE ×2 (05:35→18:13)
[2019-08-24] MEDS: LASIX PO SCH ×2 (06:00→18:20)
[2019-08-24] MEDS: GLUCOPHAGE PO SCH ×2 (06:01→18:22)
[2019-08-24] MEDS: GLUCOTROL PO SCH ×2 (06:01→18:19)
[2019-08-24] MEDS: ZESTORETIC 10/ 12.5MG PO SCH (09:50)
[2019-08-24] MEDS: FERROUS GLUCONATE PO SCH ×2 (09:50→21:38)
[2019-08-24] MEDS: JANUVIA PO SCH (09:51)
[2019-08-24] MEDS: LIPITOR TAB 40 MG PO SCH (09:51)
[2019-08-24] MEDS: NEURONTIN CAP 100 MG PO SCH ×2 (09:51→21:38)
[2019-08-24] MEDS: FOLIC ACID TAB 1 MG PO SCH ×2 (09:52→21:38)
[2019-08-24] MEDS: ARIMIDEX PO SCH (09:52)
[2019-08-24] MEDS: ROCEPHIN VIAL 1 GRAM 1 G in NS 100 ML IV + SPIKE MINIBAG* 100 ML IV SCH (09:53)
[2019-08-24] MEDS: ARTIFICIAL TEARS DROPS AFFEYE SCH (09:56)
[2019-08-24] MEDS: LEVEMIR SC SCH ×2 (09:56→21:40)
[2019-08-24] MEDS: MIRALAX POWDER (1 DOSE 17 G) PO SCH (10:06)
[2019-08-24] MEDS: MILK OF MAGNESIA PO SCH ×2 (10:06→22:06)
[2019-08-24] MEDS: FIORICET TAB PO PRN (11:20)
[2019-08-24] MEDS: HumuLIN R SC PRN ×2 (14:53→18:24)
[2019-08-24] MEDS: SYNTHROID 175 mcg TAB PO SCH (16:39)
[2019-08-24] MEDS: SNACK - Diabetic Appropriate PO SCH (20:00)
[2019-08-24] MEDS: REQUIP PO SCH (21:38)
[2019-08-24] MEDS: TRICOR TAB 160 MG PO SCH (21:38)
[2019-08-24] MEDS: AMBIEN PO PRN (21:38)
[2019-08-24] MEDS: COLACE CAP 100 MG PO SCH (22:05)
[2019-08-25 05:09] LABS: BASOPHILS % (AUTO) 0.5 % (0.2-1.0); EOSINOPHILS # (AUTO) 0.7 x10^3/uL (0.0-0.2); EOSINOPHILS % (AUTO) 12.7 % (0.9-2.9); HEMATOCRIT 26.1 % (36.0-47.0); HEMOGLOBIN 8.8 g/dL (12.0-16.0); LYMPHOCYTES # (AUTO) 1.5 X10^3/uL (1.3-2.9); LYMPHOCYTES % (AUTO) 24.7 % (21.0-51.0); MEAN CORPUSCULAR HEMOGLOBIN 31.7 pg (27.0-34.0); MEAN CORPUSCULAR HGB CONC 33.9 g/dL (33.0-35.0); MEAN CORPUSCULAR VOLUME 93.4 fL (80.0-100.0); MEAN PLATELET VOLUME 9.4 fL (7.4-11.0); MONOCYTES # (AUTO) 0.5 x10^3/uL (0.3-0.8); MONOCYTES % (AUTO) 8.6 % (0.0-13.0); NEUTROPHILS # (AUTO) 3.1 x10^3/uL (2.2-4.8); NEUTROPHILS % (AUTO) 53.5 % (42.0-75.0); PLATELET COUNT 155 X10^3/uL (150.0-450.0); RED BLOOD COUNT 2.79 X10^6/uL (3.5-5.4); RED CELL DISTRIBUTION WIDTH 16.2 % (11.6-16.5); WHITE BLOOD COUNT 5.9 X10^3/uL (3.6-10.0)
[2019-08-25] MEDS ORDERED: GLUCOPHAGE ONE ×2 (05:24→14:19)
[2019-08-25] MEDS: GLUCOTROL PO SCH ×2 (06:00→17:11)
[2019-08-25] MEDS: LASIX PO SCH ×2 (06:00→17:11)
[2019-08-25] MEDS: GLUCOPHAGE PO SCH ×2 (06:00→17:09)
[2019-08-25] MEDS: MIRALAX POWDER (1 DOSE 17 G) PO SCH (08:34)
[2019-08-25] MEDS: LEVEMIR SC SCH ×2 (08:36→20:41)
[2019-08-25] MEDS: ROCEPHIN VIAL 1 GRAM 1 G in NS 100 ML IV + SPIKE MINIBAG* 100 ML IV SCH (08:38)
[2019-08-25] MEDS: MILK OF MAGNESIA PO SCH ×2 (08:39→20:34)
[2019-08-25] MEDS: JANUVIA PO SCH (08:39)
[2019-08-25] MEDS: ARTIFICIAL TEARS DROPS AFFEYE SCH (08:40)
[2019-08-25] MEDS: FOLIC ACID TAB 1 MG PO SCH ×2 (08:40→20:35)
[2019-08-25] MEDS: ARIMIDEX PO SCH (08:40)
[2019-08-25] MEDS: ZESTORETIC 10/ 12.5MG PO SCH (08:40)
[2019-08-25] MEDS: FERROUS GLUCONATE PO SCH ×2 (08:40→20:35)
[2019-08-25] MEDS: LIPITOR TAB 40 MG PO SCH (08:40)
[2019-08-25] MEDS: NEURONTIN CAP 100 MG PO SCH ×2 (08:41→20:35)
[2019-08-25] MEDS: FIORICET TAB PO PRN (11:29)
[2019-08-25] MEDS: HumuLIN R SC PRN ×3 (11:31→20:42)
--- NOTE | 2019-08-25 14:54 | PCM.PROG ---
Progress Note - Progress Note for Day of Date of Exam: 08/24/19 - Subjective Subjective: MS.JOWERS BENITES CURRENTLY SWINGBED STATUS FOR PHYSICAL THERAPY AND ANTIBIOTIC THERAPY. SHE HAS HAD SEVERE WEAKNESS. SHE IS STATUS POST MASTECTOMY AND SPLEEN BIOPSY LAST WEEK. TODAY, SHE IS ALERT AND ORIENTED, SITTING UP IN CHAIR ON MORNING ROUNDS. SHE CONTINUES WITH WEAKNESS AND SHORTNESS OF BREATH. ON EXAMINATION, HEART IS REGULAR IN RATE AND RHYTHM. BILATERAL LUNGS ARE NOTED WITH DIMINISHED LUNG SOUNDS THROUGHOUT. ABDOMEN IS DISTENDED. SHE IS NOTED WITH NORMAL BOWEL SOUNDS IN ALL QUADRANTS. THERE IS A SERENA DRAIN IN PLACE. PT WAS SEEN IN [place] BY DR VERAS, SERENA DRAIN NOT REMOVED DUE TO CONTINUE BLOODY DRAINAGE, HEMATOMA TO RIGHT LATERAL SIDE OF INCISION WITHOUT REDNESS OR INCREASED WARMTH. PT WAS EXAMINED BY SURGEON IN [place] OFFICE ON WITH SERENA DRAIN LEFT IN PLACE, SUTURED WITH PLANS TO LEAVE IN FOR 2-3 MORE WEEKS. PT REPORTS SURGEON EXPRESSED ~75CC OUT. PT CO SORENESS TODAY, REIVEWED HGB WITH PT AND PLAN TO REPEAT CBC ON MONDAY - Past Medical Family Social History Past Med/Fam/Surg Hx: No changes since H&P Allergies: Allergies No Known Drug Allergies Allergy (Verified 09/21/17 07:49) - Review of Systems ROS: No change since H&P - Vital Signs and I&O's Vital Signs: Temperature 98.2 F Pulse Rate [Right Brachial] 86 Pulse Rate [Left Radial] 86 Pulse Rate 92 Respiratory Rate 20 Blood Pressure [Right Calf] 135/61 Blood Pressure [Left Calf] 120/68 Blood Pressure [Right Arm] 124/66 Blood Pressure [Left Arm] 106/62 O2 Sat by Pulse Oximetry 100 Intake and Output: Intake & Output 08/23/19 08/24/19 08/25/19 08/26/19 11:59 11:59 11:59 11:59 Intake Total 740 / 740 1330 / 1330 2116 Output Total 45 / 45 160 / 160 30 / 30 Balance 695 / 695 1170 / 1170 2086 - Physical Exam Oriented: Normal Eyes: Normal Ear: Normal Nose: Normal Throat: Normal Respiratory: Generalized, Diminished Cardiovascular: Normal. negative: S3, S4, Murmur : Normal Auscultation: Bowel Sounds: Normal Tenderness: Normal Skin: Wound, Bruising (SCATTERED BRUISING), Other (SERENA DRAIN, RIGHT SIDE MASTECTOMY ) Musculoskeletal: Normal Psychiatric: Normal Mood Description: Calm Affect: Normal Speech Pattern: Clear, Appropriate - Laboratory and Diagnostics Result Diagrams: 08/25/19 04:11 08/24/19 13:35 Labs: Laboratory WBC 5.9 X10^3/uL (3.6-10.0) 08/25/19 04:11 RBC 2.79 X10^6/uL (3.5-5.4) L 08/25/19 04:11 Hgb 8.8 g/dL (12.0-16.0) L 08/25/19 04:11 Hct 26.1 % (36.0-47.0) L 08/25/19 04:11 MCV 93.4 fL (80.0-100.0) 08/25/19 04:11 MCH 31.7 pg (27.0-34.0) 08/25/19 04:11 MCHC 33.9 g/dL (33.0-35.0) 08/25/19 04:11 RDW 16.2 % (11.6-16.5) 08/25/19 04:11 Plt Count 155 X10^3/uL (150.0-450.0) 08/25/19 04:11 MPV 9.4 fL (7.4-11.0) 08/25/19 04:11 Neut % (Auto) 53.5 % (42.0-75.0) 08/25/19 04:11 Lymph % (Auto) 24.7 % (21.0-51.0) 08/25/19 04:11 [place] % (Auto) 8.6 % (0.0-13.0) 08/25/19 04:11 Eos % (Auto) 12.7 % (0.9-2.9) H 08/25/19 04:11 Baso % (Auto) 0.5 % (0.2-1.0) 08/25/19 04:11 Neut # (Auto) 3.1 x10^3/uL (2.2-4.8) 08/25/19 04:11 Lymph # (Auto) 1.5 X10^3/uL (1.3-2.9) 08/25/19 04:11 [place] # (Auto) 0.5 x10^3/uL (0.3-0.8) 08/25/19 04:11 Eos # (Auto) 0.7 x10^3/uL (0.0-0.2) H 08/25/19 04:11 Baso # (Auto) 0.0 X10^3/uL (0.0-0.1) 08/25/19 04:11 Absolute Nucleated RBC 0.0 /100WBC 08/25/19 04:11 PT 13.3 SECONDS (11.8-14.3) 08/14/19 04:19 INR Target Range - 08/14/19 04:19 INR 1.05 (0.8-1.3) 08/14/19 04:19 APTT 29.6 SECONDS (22.9-36.5) 08/14/19 04:19 PTT Comment - 08/14/19 04:19 Sodium 139 mmol/L (136-145) 08/23/19 05:10 Corrected Sodium 143 mmol/L (136-145) 08/23/19 05:10 Potassium 4.7 mmol/L (3.5-5.1) 08/23/19 05:10 Chloride 104 mmol/L (98-107) 08/23/19 05:10 Carbon Dioxide 26.8 mmol/L (21-32) 08/23/19 05:10 BUN 64 mg/dL (7-18) H 08/23/19 05:10 Creatinine 1.44 mg/dL (0.55-1.02) H 08/23/19 05:10 Est GFR (MDRD) Af Amer 46 (>60) L 08/23/19 05:10 Est GFR (MDRD) Non-Af 38 (>60) L 08/23/19 05:10 Glucose 456 mg/dL (65-99) H 08/24/19 13:35 POC Glucose (mg/dL) 360 mg/dL (65-99) H 08/25/19 11:18 Calcium 9.0 mg/dL (8.5-10.1) 08/23/19 05:10 Corrected Calcium 9.6 mg/dL (8.5-10.1) 08/23/19 05:10 Total Bilirubin 0.20 mg/dL (0.2-1.0) 08/23/19 05:10 AST 26 Units/L (15-37) 08/23/19 05:10 ALT 46 Units/L (12-78) 08/23/19 05:10 Alkaline Phosphatase 113 Units/L (46-116) 08/23/19 05:10 Total Protein 6.9 g/dL (6.4-8.2) 08/23/19 05:10 Albumin 3.2 g/dL (3.4-5.0) L 08/23/19 05:10 Globulin 3.7 g/dL (2.5-4.5) 08/23/19 05:10 Albumin/Globulin Ratio 0.9 Ratio (1.1-2.1) L 08/23/19 05:10 - Plan (1) Status post mastectomy Status: Acute Qualifiers: Laterality: right Plan: CONTINUE PT, WOUND CARE, SERENA DRAINAGE OUTPT. DAILY LABS, CBC. PAIN CONTROL. CHRONIC CARE MANAGEMENT (2) Lung nodule, multiple Status: Acute (3) Diabetes mellitus, type 2 Status: Chronic Qualifiers: Diabetes mellitus shelter insulin use: with insurance sales supervisor use Diabetes mellitus complication status: without complication Qualified Code(s): E11.9 - Type 2 diabetes mellitus without complications; Z79.4 - furnace cleaner (current) use of insulin (4) History of breast cancer Status: Chronic (5) Hypertension Status: Chronic
[2019-08-25] MEDS ORDERED: NEOSPORIN OINT TOP PRN (15:34)
[2019-08-25] MEDS ORDERED: NEOSPORIN OINT ONE (15:41)
[2019-08-25] MEDS: SYNTHROID 175 mcg TAB PO SCH (17:12)
[2019-08-25] MEDS: SNACK - Diabetic Appropriate PO SCH (20:34)
[2019-08-25] MEDS: COLACE CAP 100 MG PO SCH (20:34)
[2019-08-25] MEDS: AMBIEN PO PRN (20:35)
[2019-08-25] MEDS: TRICOR TAB 160 MG PO SCH (20:35)
[2019-08-25] MEDS: REQUIP PO SCH (20:35)
[2019-08-26 05:24] LABS: BASOPHILS % (AUTO) 0.5 % (0.2-1.0); EOSINOPHILS # (AUTO) 0.8 x10^3/uL (0.0-0.2); EOSINOPHILS % (AUTO) 12.2 % (0.9-2.9); HEMATOCRIT 26.9 % (36.0-47.0); LYMPHOCYTES # (AUTO) 1.6 X10^3/uL (1.3-2.9); LYMPHOCYTES % (AUTO) 24.2 % (21.0-51.0); MEAN CORPUSCULAR HEMOGLOBIN 31.6 pg (27.0-34.0); MEAN CORPUSCULAR HGB CONC 33.6 g/dL (33.0-35.0); MEAN CORPUSCULAR VOLUME 94.2 fL (80.0-100.0); MEAN PLATELET VOLUME 9.5 fL (7.4-11.0); MONOCYTES # (AUTO) 0.5 x10^3/uL (0.3-0.8); MONOCYTES % (AUTO) 8.4 % (0.0-13.0); NEUTROPHILS # (AUTO) 3.5 x10^3/uL (2.2-4.8); NEUTROPHILS % (AUTO) 54.7 % (42.0-75.0); PLATELET COUNT 169 X10^3/uL (150.0-450.0); RED BLOOD COUNT 2.85 X10^6/uL (3.5-5.4); RED CELL DISTRIBUTION WIDTH 16.1 % (11.6-16.5); WHITE BLOOD COUNT 6.5 X10^3/uL (3.6-10.0)
[2019-08-26 05:39] LABS: ALBUMIN 3.3 g/dL (3.4-5.0); CALCIUM 9.3 mg/dL (8.5-10.1); CARBON DIOXIDE 27.8 mmol/L (21-32); COR CA(FOR HYPOALB) 9.9 mg/dL (8.5-10.1); CREATININE 1.94 mg/dL (0.55-1.02); TOTAL PROTEIN 7.1 g/dL (6.4-8.2)
[2019-08-26] MEDS ORDERED: GLUCOPHAGE ONE ×2 (05:46→15:33)
[2019-08-26] MEDS: GLUCOPHAGE PO SCH ×2 (06:25→16:33)
[2019-08-26] MEDS: GLUCOTROL PO SCH ×2 (06:26→16:40)
[2019-08-26] MEDS: HumuLIN R SC PRN ×3 (06:26→16:53)
[2019-08-26] MEDS: LASIX PO SCH ×2 (06:26→16:39)
[2019-08-26] MEDS: LEVEMIR SC SCH ×2 (08:52→20:20)
[2019-08-26] MEDS: MILK OF MAGNESIA PO SCH ×2 (08:54→21:40)
[2019-08-26] MEDS: ZESTORETIC 10/ 12.5MG PO SCH (08:55)
[2019-08-26] MEDS: NEURONTIN CAP 100 MG PO SCH ×2 (08:55→20:20)
[2019-08-26] MEDS: FOLIC ACID TAB 1 MG PO SCH ×2 (08:55→20:20)
[2019-08-26] MEDS: MIRALAX POWDER (1 DOSE 17 G) PO SCH (08:55)
[2019-08-26] MEDS: ARIMIDEX PO SCH (08:56)
[2019-08-26] MEDS: FERROUS GLUCONATE PO SCH ×2 (08:56→20:20)
[2019-08-26] MEDS: LIPITOR TAB 40 MG PO SCH (08:56)
[2019-08-26] MEDS: JANUVIA PO SCH (08:56)
[2019-08-26] MEDS: ARTIFICIAL TEARS DROPS AFFEYE SCH (09:00)
[2019-08-26] MEDS: ROCEPHIN 1 GRAM IV PREMIX 1 G/50 ML IV.SOLN. IV SCH (10:00)
[2019-08-26] MEDS: FIORICET TAB PO PRN (13:39)
[2019-08-26 15:30] LABS: CALCIUM 8.9 mg/dL (8.5-10.1); CARBON DIOXIDE 31.5 mmol/L (21-32); CREATININE 1.66 mg/dL (0.55-1.02)
[2019-08-26] MEDS: SYNTHROID 175 mcg TAB PO SCH (16:40)
[2019-08-26] MEDS: COLACE CAP 100 MG PO SCH (20:20)
[2019-08-26] MEDS: AMBIEN PO PRN (20:20)
[2019-08-26] MEDS: REQUIP PO SCH (20:20)
[2019-08-26] MEDS: TRICOR TAB 160 MG PO SCH (20:20)
[2019-08-26] MEDS: SNACK - Diabetic Appropriate PO SCH (21:35)
[2019-08-27] MEDS ORDERED: GLUCOPHAGE ONE ×2 (05:03→16:55)
[2019-08-27] MEDS: GLUCOPHAGE PO SCH ×2 (06:21→17:00)
[2019-08-27] MEDS: GLUCOTROL PO SCH ×2 (06:22→16:59)
[2019-08-27] MEDS: HumuLIN R SC PRN ×4 (06:22→21:18)
[2019-08-27] MEDS: LASIX PO SCH ×2 (06:22→16:59)
[2019-08-27] MEDS: LEVEMIR SC SCH ×2 (08:56→21:17)
[2019-08-27] MEDS: ROCEPHIN 1 GRAM IV PREMIX 1 G/50 ML IV.SOLN. IV SCH (08:57)
[2019-08-27] MEDS: LIPITOR TAB 40 MG PO SCH (08:58)
[2019-08-27] MEDS: ZESTORETIC 10/ 12.5MG PO SCH (08:58)
[2019-08-27] MEDS: FERROUS GLUCONATE PO SCH ×2 (08:58→21:15)
[2019-08-27] MEDS: NEURONTIN CAP 100 MG PO SCH ×2 (08:58→21:16)
[2019-08-27] MEDS: ARIMIDEX PO SCH (08:58)
[2019-08-27] MEDS: JANUVIA PO SCH (08:58)
[2019-08-27] MEDS: FOLIC ACID TAB 1 MG PO SCH ×2 (08:58→21:14)
[2019-08-27] MEDS: ARTIFICIAL TEARS DROPS AFFEYE SCH (09:00)
[2019-08-27] MEDS: MIRALAX POWDER (1 DOSE 17 G) PO SCH (10:32)
[2019-08-27] MEDS: MILK OF MAGNESIA PO SCH ×2 (10:32→21:17)
--- NOTE | 2019-08-27 12:39 | PCM.PROG ---
Progress Note - Progress Note for Day of Date of Exam: 08/27/19 - Subjective Subjective: MS.JOWERS BENITES CURRENTLY SWINGBED STATUS FOR PHYSICAL THERAPY AND ANTIBIOTIC THERAPY. SHE IS STATUS POST MASTECTOMY AND SPLEEN BIOPSY. PT WAS SEEN [place] BY DR VERAS, SERENA DRAIN NOT REMOVED DUE TO CONTINUE BLOODY DRAINAGE, HEMATOMA TO RIGHT LATERAL SIDE OF INCISION WITHOUT REDNESS OR INCREASED WARMTH. PT WAS EXAMINED BY SURGEON IN [place] OFFICE ON MONDAY, WITH SERENA DRAIN LEFT IN PLACE, SUTURED WITH PLANS TO LEAVE IN FOR 2-3 MORE WEEKS. PT REPORTS SURGEON EXPRESSED ~75CC OUT. TODAY, SHE IS ALERT AND ORIENTED, SITTING UP IN CHAIR ON MORNING ROUNDS. SHE CONTINUES WITH WEAKNESS AND SORENESS. ON EXAMINATION, HEART IS REGULAR IN RATE AND RHYTHM. BILATERAL LUNGS ARE NOTED WITH DIMINISHED LUNG SOUNDS THROUGHOUT. ABDOMEN IS DISTENDED. SHE IS NOTED WITH NORMAL BOWEL SOUNDS IN ALL QUADRANTS. THERE IS A SERENA DRAIN IN PLACE. LABS WERE OBTAINED YESTERDAY. ABNORMAL LAB VALUES INCLUDE THE FOLLOWING: RBC 2.85, HGB 9.0, HCT 26.9, SODIUM 135, BUN 73, CREATININE 1.66, GLUCOSE 337. PHYSICAL AND OCCUPATIONAL THERAPY IS WORKING WITH PATIENT. SHE IS CURRENTLY RECEIVING ROCEPHIN 1G IV DAILY, KEFLEX, HUMULIN R SLIDING SCALE, LEVEMIR 18 UNITS SC BID, AND HOME MEDICATIONS WERE RESUMED. WE WILL CONTINUE WITH CURRENT PLAN OF CARE TODAY. OTHERWISE, WE WILL FOLLOW UP WITH AM LABS AND CONTINUE TO MONITOR. - Past Medical Family Social History Past Med/Fam/Surg Hx: No changes since H&P Allergies: Allergies No Known Drug Allergies Allergy (Verified 09/21/17 07:49) - Review of Systems ROS: No change since H&P - Vital Signs and I&O's Vital Signs: Temperature 99.0 F Pulse Rate [Right Brachial] 89 Pulse Rate [Left Radial] 78 Pulse Rate 90 Respiratory Rate 20 Blood Pressure [Right Calf] 122/67 Blood Pressure [Left Calf] 120/68 Blood Pressure [Right Arm] 124/66 Blood Pressure [Left Arm] 135/65 O2 Sat by Pulse Oximetry 95 Intake and Output: Intake & Output 08/25/19 08/26/19 08/27/19 08/28/19 11:59 11:59 11:59 11:59 Intake Total 2117 / 2117 1717 / 1717 1454 / 1454 Output Total 30 / 30 32 / 32 45 / 45 Balance 2086 / 2086 1685 / 1685 1409 / 1409 - Physical Exam Oriented: Normal Eyes: Normal Ear: Normal Nose: Normal Throat: Normal Respiratory: Generalized, Diminished Cardiovascular: Normal. negative: S3, S4, Murmur : Normal Auscultation: Bowel Sounds: Normal Tenderness: Normal Skin: Wound, Bruising (SCATTERED BRUISING), Other (SERENA DRAIN, RIGHT SIDE MASTECTOMY ) Musculoskeletal: Normal Psychiatric: Normal Mood Description: Calm Affect: Normal Speech Pattern: Clear, Appropriate - Laboratory and Diagnostics Result Diagrams: 08/26/19 04:26 08/26/19 15:17 Labs: Laboratory WBC 6.5 X10^3/uL (3.6-10.0) 08/26/19 04: RBC 2.85 X10^6/uL (3.5-5.4) L 08/26/19 04:26 Hgb 9.0 g/dL (12.0-16.0) L 08/26/19 04:26 Hct 26.9 % (36.0-47.0) L 08/26/19 04:26 MCV 94.2 fL (80.0-100.0) 08/26/19 04:26 MCH 31.6 pg (27.0-34.0) 08/26/19 04: MCHC 33.6 g/dL (33.0-35.0) 08/26/19 04:26 RDW 16.1 % (11.6-16.5) 08/26/19 04:26 Plt Count 169 X10^3/uL (150.0-450.0) 08/26/19 04:26 MPV 9.5 fL (7.4-11.0) 08/26/19 04:26 Neut % (Auto) 54.7 % (42.0-75.0) 08/26/19 04:26 Lymph % (Auto) 24.2 % (21.0-51.0) 08/26/19 04:26 [place] % (Auto) 8.4 % (0.0-13.0) 08/26/19 04:26 Eos % (Auto) 12.2 % (0.9-2.9) H 08/26/19 04:26 Baso % (Auto) 0.5 % (0.2-1.0) 08/26/19 04:26 Neut # (Auto) 3.5 x10^3/uL (2.2-4.8) 08/26/19 04:26 Lymph # (Auto) 1.6 X10^3/uL (1.3-2.9) 08/26/19 04:26 [place] # (Auto) 0.5 x10^3/uL (0.3-0.8) 08/26/19 04:26 Eos # (Auto) 0.8 x10^3/uL (0.0-0.2) H 08/26/19 04:26 Baso # (Auto) 0.0 X10^3/uL (0.0-0.1) 08/26/19 04: Absolute Nucleated RBC 0.1 /100WBC 08/26/19 04:26 PT 13.3 SECONDS (11.8-14.3) 08/14/19 04:19 INR Target Range - 08/14/19 04: INR 1.05 (0.8-1.3) 08/14/19 04:19 APTT 29.6 SECONDS (22.9-36.5) 08/14/19 04:19 PTT Comment - 08/14/19 04:19 Sodium 135 mmol/L (136-145) L 08/26/19 15:17 Corrected Sodium 141 mmol/L (136-145) 08/26/19 15:17 Potassium 4.9 mmol/L (3.5-5.1) 08/26/19 15:17 Chloride 99 mmol/L (98-107) 08/26/19 15:17 Carbon Dioxide 31.5 mmol/L (21-32) 08/26/19 15:17 BUN 73 mg/dL (7-18) H 08/26/19 15:17 Creatinine 1.66 mg/dL (0.55-1.02) H 08/26/19 15:17 Est GFR (MDRD) Af Amer 39 (>60) L 08/26/19 15:17 Est GFR (MDRD) Non-Af 32 (>60) L 08/26/19 15:17 Glucose 337 mg/dL (65-99) H 08/26/19 15:17 POC Glucose (mg/dL) 307 mg/dL (65-99) H 08/27/19 11:34 Calcium 8.9 mg/dL (8.5-10.1) 08/26/19 15:17 Corrected Calcium 9.9 mg/dL (8.5-10.1) 08/26/19 04:26 Total Bilirubin 0.20 mg/dL (0.2-1.0) 08/26/19 04:26 AST 32 Units/L (15-37) 08/26/19 04:26 ALT 47 Units/L (12-78) 08/26/19 04:26 Alkaline Phosphatase 118 Units/L (46-116) H 08/26/19 04:26 Total Protein 7.1 g/dL (6.4-8.2) 08/26/19 04:26 Albumin 3.3 g/dL (3.4-5.0) L 08/26/19 04:26 Globulin 3.8 g/dL (2.5-4.5) 08/26/19 04:26 Albumin/Globulin Ratio 0.9 Ratio (1.1-2.1) L 08/26/19 04:26 - Plan (1) Urinary tract infection Status: Acute Qualifiers: (2) Status post mastectomy Status: Acute Qualifiers: Laterality: right Plan: CONTINUE PT, WOUND CARE, SERENA DRAINAGE OUTPT. DAILY LABS, CBC. PAIN CONTROL. CHRONIC CARE MANAGEMENT (3) Diabetes mellitus, type 2 Status: Chronic Qualifiers: Diabetes mellitus intermediate project manager insulin use: with senior care use Diabetes mellitus complication status: without complication Qualified Code(s): E11.9 - Type 2 diabetes mellitus without complications; Z79.4 - MCFP (current) use of insulin (4) Shortness of breath Status: Acute
[2019-08-27] MEDS: PERCOCET TAB 5/325 MG PO PRN (14:38)
[2019-08-27] MEDS: SYNTHROID 175 mcg TAB PO SCH (16:59)
[2019-08-27] MEDS: SNACK - Diabetic Appropriate PO SCH (21:13)
[2019-08-27] MEDS: AMBIEN PO PRN (21:13)
[2019-08-27] MEDS: REQUIP PO SCH (21:14)
[2019-08-27] MEDS: TRICOR TAB 160 MG PO SCH (21:16)
[2019-08-27] MEDS: COLACE CAP 100 MG PO SCH (21:16)
[2019-08-28] MEDS ORDERED: GLUCOPHAGE ONE ×2 (05:12→16:44)
[2019-08-28] MEDS: HumuLIN R SC PRN ×3 (05:39→20:41)
[2019-08-28] MEDS: LASIX PO SCH ×2 (06:19→16:59)
[2019-08-28] MEDS: GLUCOPHAGE PO SCH ×2 (06:19→16:59)
[2019-08-28] MEDS: GLUCOTROL PO SCH ×2 (06:19→16:59)
[2019-08-28] MEDS: FOLIC ACID TAB 1 MG PO SCH ×2 (09:07→20:40)
[2019-08-28] MEDS: NEURONTIN CAP 100 MG PO SCH ×2 (09:07→20:39)
[2019-08-28] MEDS: ARIMIDEX PO SCH (09:07)
[2019-08-28] MEDS: LIPITOR TAB 40 MG PO SCH (09:07)
[2019-08-28] MEDS: ROCEPHIN 1 GRAM IV PREMIX 1 G/50 ML IV.SOLN. IV SCH (09:07)
[2019-08-28] MEDS: FERROUS GLUCONATE PO SCH ×2 (09:07→20:40)
[2019-08-28] MEDS: LEVEMIR SC SCH ×2 (09:07→20:39)
[2019-08-28] MEDS: ZESTORETIC 10/ 12.5MG PO SCH (09:07)
[2019-08-28] MEDS: JANUVIA PO SCH (09:07)
[2019-08-28] MEDS: MILK OF MAGNESIA PO SCH ×2 (09:18→20:41)
[2019-08-28] MEDS: MIRALAX POWDER (1 DOSE 17 G) PO SCH (09:18)
[2019-08-28] MEDS: ARTIFICIAL TEARS DROPS AFFEYE SCH (09:19)
[2019-08-28] MEDS: PERCOCET TAB 5/325 MG PO PRN (11:47)
[2019-08-28] MEDS: SYNTHROID 175 mcg TAB PO SCH (16:58)
[2019-08-28] MEDS: REQUIP PO SCH (20:40)
[2019-08-28] MEDS: AMBIEN PO PRN (20:40)
[2019-08-28] MEDS: TRICOR TAB 160 MG PO SCH (20:40)
[2019-08-28] MEDS: COLACE CAP 100 MG PO SCH (20:40)
[2019-08-28] MEDS: SNACK - Diabetic Appropriate PO SCH (20:41)
[2019-08-29 05:39] LABS: BASOPHILS % (AUTO) 0.6 % (0.2-1.0); EOSINOPHILS # (AUTO) 0.8 x10^3/uL (0.0-0.2); EOSINOPHILS % (AUTO) 12.9 % (0.9-2.9); HEMATOCRIT 26.4 % (36.0-47.0); HEMOGLOBIN 8.7 g/dL (12.0-16.0); LYMPHOCYTES # (AUTO) 1.5 X10^3/uL (1.3-2.9); LYMPHOCYTES % (AUTO) 23.6 % (21.0-51.0); MEAN CORPUSCULAR HEMOGLOBIN 31.9 pg (27.0-34.0); MEAN CORPUSCULAR HGB CONC 33.1 g/dL (33.0-35.0); MEAN CORPUSCULAR VOLUME 96.3 fL (80.0-100.0); MEAN PLATELET VOLUME 9.8 fL (7.4-11.0); MONOCYTES # (AUTO) 0.5 x10^3/uL (0.3-0.8); MONOCYTES % (AUTO) 8.5 % (0.0-13.0); NEUTROPHILS # (AUTO) 3.5 x10^3/uL (2.2-4.8); NEUTROPHILS % (AUTO) 54.4 % (42.0-75.0); PLATELET COUNT 130 X10^3/uL (150.0-450.0); RED BLOOD COUNT 2.74 X10^6/uL (3.5-5.4); WHITE BLOOD COUNT 6.4 X10^3/uL (3.6-10.0)
[2019-08-29 05:45] LABS: ALBUMIN 3.2 g/dL (3.4-5.0); CALCIUM 9.1 mg/dL (8.5-10.1); CARBON DIOXIDE 25.8 mmol/L (21-32); COR CA(FOR HYPOALB) 9.7 mg/dL (8.5-10.1); CREATININE 1.58 mg/dL (0.55-1.02)
[2019-08-29] MEDS ORDERED: GLUCOPHAGE ONE ×2 (05:52→16:04)
[2019-08-29] MEDS: HumuLIN R SC PRN ×4 (06:04→20:53)
[2019-08-29] MEDS: GLUCOPHAGE PO SCH ×2 (06:05→16:10)
[2019-08-29] MEDS: GLUCOTROL PO SCH ×2 (06:05→16:10)
[2019-08-29] MEDS: LASIX PO SCH ×2 (06:06→16:10)
[2019-08-29] MEDS: LEVEMIR SC SCH ×2 (08:15→20:25)
[2019-08-29] MEDS: ARIMIDEX PO SCH (08:16)
[2019-08-29] MEDS: NEURONTIN CAP 100 MG PO SCH ×2 (08:16→20:20)
[2019-08-29] MEDS: LIPITOR TAB 40 MG PO SCH (08:16)
[2019-08-29] MEDS: ROCEPHIN 1 GRAM IV PREMIX 1 G/50 ML IV.SOLN. IV SCH (08:16)
[2019-08-29] MEDS: FERROUS GLUCONATE PO SCH ×2 (08:16→20:19)
[2019-08-29] MEDS: KLONOPIN TAB 0.5 MG PO PRN (08:16)
[2019-08-29] MEDS: JANUVIA PO SCH (08:16)
[2019-08-29] MEDS: MIRALAX POWDER (1 DOSE 17 G) PO SCH (08:17)
[2019-08-29] MEDS: MILK OF MAGNESIA PO SCH (08:17)
[2019-08-29] MEDS: ZESTORETIC 10/ 12.5MG PO SCH (08:17)
[2019-08-29] MEDS: FOLIC ACID TAB 1 MG PO SCH ×2 (08:17→20:19)
[2019-08-29] MEDS: ARTIFICIAL TEARS DROPS AFFEYE SCH (08:17)
[2019-08-29] MEDS ORDERED: NS 250 ML IV 250 ML IV ONE (08:22)
[2019-08-29] MEDS ORDERED: MILK OF MAGNESIA PO PRN (09:41)
[2019-08-29] MEDS ORDERED: MIRALAX POWDER (1 DOSE 17 G) PO PRN (09:41)
[2019-08-29] MEDS: SYNTHROID 175 mcg TAB PO SCH (16:10)
[2019-08-29] MEDS: TRICOR TAB 160 MG PO SCH (20:19)
[2019-08-29] MEDS: COLACE CAP 100 MG PO SCH (20:20)
[2019-08-29] MEDS: AMBIEN PO PRN (20:20)
[2019-08-29] MEDS: REQUIP PO SCH (20:20)
[2019-08-29] MEDS: SNACK - Diabetic Appropriate PO SCH (20:26)
[2019-08-30] MEDS ORDERED: GLUCOPHAGE ONE ×2 (06:16→16:47)
[2019-08-30] MEDS: GLUCOPHAGE PO SCH ×2 (06:23→17:44)
[2019-08-30] MEDS: LASIX PO SCH ×2 (06:24→17:44)
[2019-08-30] MEDS: GLUCOTROL PO SCH ×2 (06:24→17:44)
[2019-08-30] MEDS: HumuLIN R SC PRN ×4 (06:33→21:01)
[2019-08-30] MEDS: FERROUS GLUCONATE PO SCH ×2 (08:11→20:58)
[2019-08-30] MEDS: JANUVIA PO SCH (08:11)
[2019-08-30] MEDS: ROCEPHIN 1 GRAM IV PREMIX 1 G/50 ML IV.SOLN. IV SCH (08:11)
[2019-08-30] MEDS: NEURONTIN CAP 100 MG PO SCH ×2 (08:11→20:59)
[2019-08-30] MEDS: ZESTORETIC 10/ 12.5MG PO SCH (08:11)
[2019-08-30] MEDS: ARIMIDEX PO SCH (08:11)
[2019-08-30] MEDS: KLONOPIN TAB 0.5 MG PO PRN (08:11)
[2019-08-30] MEDS: FOLIC ACID TAB 1 MG PO SCH ×2 (08:11→20:58)
[2019-08-30] MEDS: LIPITOR TAB 40 MG PO SCH (08:11)
[2019-08-30] MEDS: ARTIFICIAL TEARS DROPS AFFEYE SCH (08:16)
[2019-08-30] MEDS: LEVEMIR SC SCH ×2 (08:17→21:00)
[2019-08-30] MEDS: FIORICET TAB PO PRN (14:13)
[2019-08-30] MEDS: SYNTHROID 175 mcg TAB PO SCH (17:40)
[2019-08-30] MEDS ORDERED: STERILE WATER IRRIGATION IR ONE (20:35)
[2019-08-30] MEDS: REQUIP PO SCH (20:58)
[2019-08-30] MEDS: TRICOR TAB 160 MG PO SCH (20:58)
[2019-08-30] MEDS: AMBIEN PO PRN (20:58)
[2019-08-30] MEDS: COLACE CAP 100 MG PO SCH (20:59)
[2019-08-30] MEDS: SNACK - Diabetic Appropriate PO SCH (21:03)
[2019-08-31] MEDS ORDERED: GLUCOPHAGE ONE ×2 (05:48→16:31)
[2019-08-31] MEDS: HumuLIN R SC PRN ×4 (05:56→21:02)
[2019-08-31] MEDS: GLUCOPHAGE PO SCH ×2 (05:59→16:34)
[2019-08-31] MEDS: LASIX PO SCH ×2 (06:00→16:35)
[2019-08-31] MEDS: GLUCOTROL PO SCH ×2 (06:00→16:34)
[2019-08-31] MEDS: FOLIC ACID TAB 1 MG PO SCH ×2 (08:52→21:00)
[2019-08-31] MEDS: NEURONTIN CAP 100 MG PO SCH ×2 (08:52→21:00)
[2019-08-31] MEDS: FERROUS GLUCONATE PO SCH ×2 (08:52→21:00)
[2019-08-31] MEDS: LIPITOR TAB 40 MG PO SCH (08:52)
[2019-08-31] MEDS: ZESTORETIC 10/ 12.5MG PO SCH (08:52)
[2019-08-31] MEDS: JANUVIA PO SCH (08:52)
[2019-08-31] MEDS: ROCEPHIN 1 GRAM IV PREMIX 1 G/50 ML IV.SOLN. IV SCH (08:52)
[2019-08-31] MEDS: ARIMIDEX PO SCH (08:52)
[2019-08-31] MEDS: ARTIFICIAL TEARS DROPS AFFEYE SCH (08:53)
[2019-08-31] MEDS: LEVEMIR SC SCH ×2 (08:53→21:01)
[2019-08-31] MEDS: FIORICET TAB PO PRN (14:23)
[2019-08-31] MEDS: SYNTHROID 175 mcg TAB PO SCH (16:33)
[2019-08-31] MEDS: SNACK - Diabetic Appropriate PO SCH (20:59)
[2019-08-31] MEDS: COLACE CAP 100 MG PO SCH (21:00)
[2019-08-31] MEDS: TRICOR TAB 160 MG PO SCH (21:00)
[2019-08-31] MEDS: AMBIEN PO PRN (21:00)
[2019-08-31] MEDS: REQUIP PO SCH (21:02)
[2019-09-01] MEDS ORDERED: GLUCOPHAGE ONE ×2 (05:11→16:57)
[2019-09-01] MEDS: LASIX PO SCH ×2 (06:01→17:02)
[2019-09-01] MEDS: HumuLIN R SC PRN ×3 (06:01→21:12)
[2019-09-01] MEDS: GLUCOPHAGE PO SCH ×2 (06:01→17:02)
[2019-09-01] MEDS: GLUCOTROL PO SCH ×2 (06:01→17:02)
[2019-09-01] MEDS: ROCEPHIN 1 GRAM IV PREMIX 1 G/50 ML IV.SOLN. IV SCH (08:54)
[2019-09-01] MEDS: LEVEMIR SC SCH ×2 (08:54→20:30)
[2019-09-01] MEDS: FOLIC ACID TAB 1 MG PO SCH ×2 (08:56→20:29)
[2019-09-01] MEDS: ZESTORETIC 10/ 12.5MG PO SCH (08:56)
[2019-09-01] MEDS: JANUVIA PO SCH (08:57)
[2019-09-01] MEDS: LIPITOR TAB 40 MG PO SCH (08:57)
[2019-09-01] MEDS: ARIMIDEX PO SCH (09:02)
[2019-09-01] MEDS: NEURONTIN CAP 100 MG PO SCH ×2 (09:03→20:29)
[2019-09-01] MEDS: FERROUS GLUCONATE PO SCH ×2 (09:03→20:29)
[2019-09-01] MEDS: ARTIFICIAL TEARS DROPS AFFEYE SCH (09:05)
[2019-09-01] MEDS: FIORICET TAB PO PRN (12:10)
[2019-09-01] MEDS: SYNTHROID 175 mcg TAB PO SCH (17:02)
[2019-09-01] MEDS: COLACE CAP 100 MG PO SCH (20:29)
[2019-09-01] MEDS: TRICOR TAB 160 MG PO SCH (20:29)
[2019-09-01] MEDS: REQUIP PO SCH (20:29)
[2019-09-01] MEDS: SNACK - Diabetic Appropriate PO SCH (20:30)
[2019-09-01] MEDS: AMBIEN PO PRN (20:30)
[2019-09-01] MEDS: PERCOCET TAB 5/325 MG PO PRN (20:31)
[2019-09-02] MEDS: HumuLIN R SC PRN ×2 (00:42→12:10)
[2019-09-02] MEDS ORDERED: GLUCOPHAGE ONE (05:01)
[2019-09-02 05:11] LABS: BASOPHILS % (AUTO) 0.8 % (0.2-1.0); EOSINOPHILS # (AUTO) 0.7 x10^3/uL (0.0-0.2); EOSINOPHILS % (AUTO) 11.3 % (0.9-2.9); HEMATOCRIT 26.9 % (36.0-47.0); HEMOGLOBIN 9.2 g/dL (12.0-16.0); LYMPHOCYTES # (AUTO) 1.5 X10^3/uL (1.3-2.9); LYMPHOCYTES % (AUTO) 26.3 % (21.0-51.0); MEAN CORPUSCULAR HEMOGLOBIN 32.3 pg (27.0-34.0); MEAN CORPUSCULAR HGB CONC 34.1 g/dL (33.0-35.0); MEAN CORPUSCULAR VOLUME 94.5 fL (80.0-100.0); MEAN PLATELET VOLUME 8.9 fL (7.4-11.0); MONOCYTES # (AUTO) 0.5 x10^3/uL (0.3-0.8); MONOCYTES % (AUTO) 8.5 % (0.0-13.0); NEUTROPHILS # (AUTO) 3.1 x10^3/uL (2.2-4.8); NEUTROPHILS % (AUTO) 53.1 % (42.0-75.0); PLATELET COUNT 111 X10^3/uL (150.0-450.0); RED BLOOD COUNT 2.84 X10^6/uL (3.5-5.4); RED CELL DISTRIBUTION WIDTH 15.5 % (11.6-16.5); WHITE BLOOD COUNT 5.8 X10^3/uL (3.6-10.0)
[2019-09-02 05:31] LABS: ALANINE AMINOTRANSFERASE 41 Units/L (12-78); ALBUMIN 3.4 g/dL (3.4-5.0); ALKALINE PHOSPHATASE 105 Units/L (46-116); ASPARTATE AMINO TRANSFERASE 25 Units/L (15-37); BLOOD UREA NITROGEN 59 mg/dL (7-18); CALCIUM 8.9 mg/dL (8.5-10.1); CHLORIDE 103 mmol/L (98-107); COR NA(FOR HYPERGLY) 139 mmol/L (136-145); CREATININE 1.47 mg/dL (0.55-1.02); SODIUM 137 mmol/L (136-145); TOTAL PROTEIN 7.2 g/dL (6.4-8.2); eGFR NON BLACK RACES 37 (>60)
[2019-09-02] MEDS: GLUCOPHAGE PO SCH (05:59)
[2019-09-02] MEDS: LASIX PO SCH (05:59)
[2019-09-02] MEDS: GLUCOTROL PO SCH (05:59)
[2019-09-02] MEDS: LEVEMIR SC SCH (09:43)
[2019-09-02] MEDS: ROCEPHIN 1 GRAM IV PREMIX 1 G/50 ML IV.SOLN. IV SCH (09:44)
[2019-09-02] MEDS: ARTIFICIAL TEARS DROPS AFFEYE SCH (09:45)
[2019-09-02] MEDS: FERROUS GLUCONATE PO SCH (09:45)
[2019-09-02] MEDS: ZESTORETIC 10/ 12.5MG PO SCH (09:45)
[2019-09-02] MEDS: LIPITOR TAB 40 MG PO SCH (09:45)
[2019-09-02] MEDS: JANUVIA PO SCH (09:45)
[2019-09-02] MEDS: ARIMIDEX PO SCH (09:45)
[2019-09-02] MEDS: FOLIC ACID TAB 1 MG PO SCH (09:46)
[2019-09-02] MEDS: NEURONTIN CAP 100 MG PO SCH (09:46)
[2019-09-02 10:46] VITALS: BP 128/51
== END 2019-09-02 12:50 | disposition home health service (06) | DRG 951 ==
LOC: MED/SURG 14:30
PROVIDERS: ADMIT Internal Medicine; ATTEND Internal Medicine
DX: J44.9 Chronic obstructive pulmonary disease, unspecified; Z79.4 Long term (current) use of insulin; R26.89 Other abnormalities of gait and mobility; N39.0 Urinary tract infection, site not specified; R53.1 Weakness; K21.9 Gastro-esophageal reflux disease without esophagitis; I25.10 Atherosclerotic heart disease of native coronary artery without angina pectoris; Z98.890 Other specified postprocedural states; E03.8 Other specified hypothyroidism; Z85.3 Personal history of malignant neoplasm of breast; E78.2 Mixed hyperlipidemia; D64.89 Other specified anemias; I10 Essential (primary) hypertension; Z90.11 Acquired absence of right breast and nipple; R91.8 Other nonspecific abnormal finding of lung field; E11.65 Type 2 diabetes mellitus with hyperglycemia
CPT/HCPCS: 36415; 71010; 71045; 80048; 80053; 82947; 85025; 85610; 85730; 92610; 97110; 97112; 97116; 97162; 97166; 97530; 97535; A4216; A4222; S0170; J0696; J1815; J7050

== ENCOUNTER 2020-11-17 17:36 | Observation (INO) ==
[2020-11-17] MEDS: NS 1000 ML 1,000 ML IV SCH (21:00)
[2020-11-17] MEDS: SNACK - Diabetic Appropriate PO SCH (21:00)
[2020-11-17 21:20] LABS: BASOPHILS % (AUTO) 0.5 % (0.2-1.0); EOSINOPHILS # (AUTO) 0.2 x10^3/uL (0.0-0.2); EOSINOPHILS % (AUTO) 3.5 % (0.9-2.9); HEMATOCRIT 27.3 % (36.0-47.0); HEMOGLOBIN 9.2 g/dL (12.0-16.0); LYMPHOCYTES # (AUTO) 0.8 X10^3/uL (1.3-2.9); LYMPHOCYTES % (AUTO) 15.4 % (21.0-51.0); MEAN CORPUSCULAR HEMOGLOBIN 33.2 pg (27.0-34.0); MEAN CORPUSCULAR HGB CONC 33.7 g/dL (33.0-35.0); MEAN CORPUSCULAR VOLUME 98.4 fL (80.0-100.0); MEAN PLATELET VOLUME 10.9 fL (7.4-11.0); MONOCYTES # (AUTO) 0.4 x10^3/uL (0.3-0.8); MONOCYTES % (AUTO) 7.5 % (0.0-13.0); NEUTROPHILS # (AUTO) 3.9 x10^3/uL (2.2-4.8); NEUTROPHILS % (AUTO) 73.1 % (42.0-75.0); PLATELET COUNT 116 X10^3/uL (150.0-450.0); RED BLOOD COUNT 2.78 X10^6/uL (3.5-5.4); RED CELL DISTRIBUTION WIDTH 15.7 % (11.6-16.5); WHITE BLOOD COUNT 5.4 X10^3/uL (3.6-10.0)
[2020-11-17 21:23] LABS: ALANINE AMINOTRANSFERASE 32 Units/L (12-78); ALBUMIN 3.4 g/dL (3.4-5.0); ALKALINE PHOSPHATASE 63 Units/L (46-116); ASPARTATE AMINO TRANSFERASE 28 Units/L (15-37); BLOOD UREA NITROGEN 67 mg/dL (7-18); CALCIUM 9.6 mg/dL (8.5-10.1); CARBON DIOXIDE 28.2 mmol/L (21-32); CHLORIDE 103 mmol/L (98-107); COR NA(FOR HYPERGLY) 139 mmol/L (136-145); CREATININE 2.88 mg/dL (0.55-1.02); SODIUM 136 mmol/L (136-145); TOTAL PROTEIN 7.7 g/dL (6.4-8.2); eGFR NON BLACK RACES 17 (>60)
[2020-11-17] MEDS: PROTONIX INJ 40 MG VIAL IVP SCH ×2 (21:30→23:43)
[2020-11-17] MEDS: PEPCID 20 MG IV PREMIX* 20 MG/50 ML BAG IV SCH ×2 (21:30→23:41)
[2020-11-17] MEDS ORDERED: PROTONIX INJ 40 MG VIAL ONE (21:59)
[2020-11-17] MEDS: HumuLIN R SUBCUT PRN (22:00)
[2020-11-17] MEDS: AMBIEN PO PRN (22:30)
--- NOTE | 2020-11-17 22:38 | RAD ---
HISTORYABD PAIN, DIARRHEA, WEAKNESSSTUDYACUTE ABDOMEN SERIESCOMPARISONNone availableTECHNIQUEAP supine and upright abdominal radiographs with chest radiography, 3 images.FINDINGSGas and stool in non distended colon.Gas in scattered loops of non-distended small bowel.Gaseous distention of the stomach.Status post cholecystectomy.No gross free air.No abnormal calcifications.No acute osseous abnormality.Lungs are clear of focal airspace disease.No cardiomegaly.No pneumothorax.No pleural effusion.Surgical clips at the right neck base and along the right thoracic wall; correlate clinically.IMPRESSIONNo acute intra-abdominal or intrathoracic abnormality detected.Electronically signed by: Rowdy Childs (Nov 17, 2020 22:36:05)
[2020-11-18] MEDS: HumuLIN R SUBCUT PRN ×4 (05:54→20:43)
[2020-11-18 06:22] LABS: BASOPHILS % (AUTO) 0.5 % (0.2-1.0); EOSINOPHILS # (AUTO) 0.3 x10^3/uL (0.0-0.2); EOSINOPHILS % (AUTO) 4.9 % (0.9-2.9); HEMATOCRIT 25.8 % (36.0-47.0); HEMOGLOBIN 8.7 g/dL (12.0-16.0); LYMPHOCYTES # (AUTO) 1.1 X10^3/uL (1.3-2.9); LYMPHOCYTES % (AUTO) 16.8 % (21.0-51.0); MEAN CORPUSCULAR HEMOGLOBIN 33.5 pg (27.0-34.0); MEAN CORPUSCULAR HGB CONC 33.8 g/dL (33.0-35.0); MEAN CORPUSCULAR VOLUME 99.2 fL (80.0-100.0); MEAN PLATELET VOLUME 10.7 fL (7.4-11.0); MONOCYTES # (AUTO) 0.5 x10^3/uL (0.3-0.8); MONOCYTES % (AUTO) 7.3 % (0.0-13.0); NEUTROPHILS # (AUTO) 4.7 x10^3/uL (2.2-4.8); NEUTROPHILS % (AUTO) 70.5 % (42.0-75.0); PLATELET COUNT 118 X10^3/uL (150.0-450.0); WHITE BLOOD COUNT 6.7 X10^3/uL (3.6-10.0)
[2020-11-18 06:46] LABS: ALBUMIN 3.2 g/dL (3.4-5.0); CALCIUM 8.7 mg/dL (8.5-10.1); CARBON DIOXIDE 22.9 mmol/L (21-32); COR CA(FOR HYPOALB) 9.3 mg/dL (8.5-10.1); CREATININE 2.9 mg/dL (0.55-1.02); TOTAL PROTEIN 7.3 g/dL (6.4-8.2)
[2020-11-18 07:06] LABS: CRYPTOSPORIDIUM PARVUM ANTIGEN NEGATIVE (NEGATIVE); GIARDIA LAMBLIA ANTIGEN NEGATIVE (NEGATIVE)
[2020-11-18] MEDS: PROTONIX INJ 40 MG VIAL IVP SCH ×2 (08:17→20:42)
[2020-11-18] MEDS: PEPCID 20 MG IV PREMIX* 20 MG/50 ML BAG IV SCH (08:20)
[2020-11-18] MEDS: NS 1000 ML 1,000 ML IV SCH ×3 (09:34→23:05)
[2020-11-18] MEDS ORDERED: LOMOTIL PO PRN (09:38)
[2020-11-18] MEDS: CIPRO IV 200 MG PREMIX* 200 MG/100 ML BAG IV SCH ×2 (09:57→20:47)
[2020-11-18 11:21] LABS: BILIRUBIN,URINE NEGATIVE (NEGATIVE); BLOOD/HEMOGLOBIN,URINE NEGATIVE (NEGATIVE); GLUCOSE, URINE 1+ (NEGATIVE); KETONES,URINE NEGATIVE (NEGATIVE); LEUKOCYTE ESTERASE ,URINE NEGATIVE (NEGATIVE); NITRITES,URINE NEGATIVE (NEGATIVE); PROTEIN,URINE NEGATIVE (NEGATIVE); UROBILINOGEN,URINE NORMAL (NORMAL)
[2020-11-18 11:27] LABS: APPEARANCE,URINE CLEAR (CLEAR); COLOR,URINE YELLOW (YELLOW)
--- NOTE | 2020-11-18 14:11 | DR.H&P ---
H&P - History & Physical for Day of: H&P Date: 11/17/20 - Chief Complaint Chief Complaint: WEAKNESS, DIARRHEA, BLOOD IN STOOL - History of Present Illness History of Present Illness: WAS SEEN IN THE OFFICE YESTERDAY. SHE COMPLAINED OF SEVERE DIARRHEA AND BLOOD IN STOOLS. SHE ALSO COMPLAINED OF LOWER BACK PAIN. SYMPTOMS STARTED ON 11/13/20 AND HAVE PROGRESSIVELY GOTTEN WORSE. SHE REPORTS SEVERE WEAKNESS AND RECENTLY FALLING AT HOME. SHE RECEIVED TWO UNITS OF PRBC LAST WEEK DUE TO A HGB OF 7.9. HER STOOLS ARE DESCRIBED BLACK AND TARRY. SHE REPORTS TAKING ZOFRAN, PHENERGAN, AND IMMODIUM AT HOME WITHOUT IMPROVEMENT IN SYMPTOMS. SHE WAS ADMITTED TO THE HOSPITAL FOR FURTHER EVALUATION AND TREATMENT. HER PMH INCLUDES CAD, CHF, HYPERLIPIDEMIA, HTN, COPD, SLEEP APNEA, GERD, PUD, RENAL DISEASE, DIABETES MELLITUS II, HYPERTHYROIDISM, LEFT PARTIAL MASTECTOMY AND RIGHT TOTAL MASTECTOMY, CHOLECYSTECTOMY, THYROIDECTOMY. ON ARRIVAL TO THE HOSPITAL, VITALS WERE 98.0-87-16-92%-111/53. LABS WERE OBTAINED. ABNORMAL LAB VALUES INCLUDE THE FOLLOWING: RBC 2.78, HGB 9.2, HCT 27.3, PLT COUNT 116, POTASSIUM 5.5, BUN 67, CREATININE 2.88, GLUCOSE 207. URINALYSIS UNREMARKABLE. STOOL STUDIES WERE OBTAINED. SHE WAS POSITIVE FOR OCCULT BLOOD AND WHITE CELLS IN THE STOOL. STOOL CULTURES WERE SET UP. COVID-19 NEGATIVE. AN ACUTE ABDOMINAL SERIES WAS OBTAINED AND REVEALED: No acute intra- abdominal or intrathoracic abnormality detected. SHE WAS STARTED ON NORMAL SALINE AT 80 ML/HR, PROTONIX 40MG IV BID, PEPCID 20MG IV DAILY, CIPRO 200MG IV Q12H, LOMOTIL 1 TAB PO BID PRN, HUMULIN R SLIDING SCALE, ZOFRAN 4MG IV Q4H PRN, AND AMBIEN 10MG PO HS PRN. OTHERWISE, WE PLAN TO FOLLOW UP WITH AM LABS AND CONTINUE TO MONITOR. TIME SPENT ON CLINICAL ASSESSMENT, REVIEWING LABS AND IMAGING, DECISION MAKING, AND DOCUMENTATION GREATER THAN 75 MINUTES. - Past Medical History Past Medical History: Anemia, Arthritis, COPD, Coronary Artery Disease, Diabetes, Dyslipidemia, GERD, Hypertension, Hypothyroidism, PUD, Sleep Apnea Additional Medical History: Hx Breast Ca, Restless Leg Syndrome, Pulmonary HTN, Hx Goiter - Past Surgical History Surgical History: Cholecystectomy, Mastectomy, Thyroidectomy Additional Surgical History: Hx Mastectomy, Colonoscopy - Family History Family Medical History: Diabetes Mellitus, Cancer, Heart Failure, Hypertension - Social History Does patient currently use any type of tobacco product: No Have you used tobacco products in the last 12 months: No Type of Tobacco Use: None Does any household member use tobacco: No Alcohol Use: None Drug Use: None - Medications Home Medications: No Known Drug Allergies Allergy (Verified 09/21/17 07:49) CONTINUE taking the following medications aspirin 81 mg PO DAILY 11/18/20 [History] baclofen 5 mg PO QHS 11/18/20 [History] diphenoxylate-atropine 1 tab PO TID 11/18/20 [History] folic acid 1 mg PO DAILY 11/18/20 [History] insulin aspart U-100 [Novolog Flexpen U-100 Insulin] unit SUBCUT 11/18/20 [History] insulin detemir U-100 [Levemir U-100 Insulin] 26 units SC BID 11/18/20 [History] ondansetron 8 mg PO TID PRN 11/18/20 [History] pregabalin 50 mg PO QHS 11/18/20 [History] - Review of Systems Constitutional: Weakness Eyes: No Symptoms Reported ENT: No Symptoms Reported Respiratory: No Symptoms Reported Cardiovascular: No Symptoms Reported Gastrointestinal: See HPI, Diarrhea, Melena Genitourinary: No Symptoms Reported Musculoskeletal: No Symptoms Reported Skin: No Symptoms Reported Neurological: Weakness - Physical Exam Vital Signs: Temperature 98.8 F Pulse Rate [Left] 92 Respiratory Rate 20 Blood Pressure [Right Calf] 128/60 Blood Pressure [Left Calf] 120/68 Blood Pressure [Right Arm] 124/66 Blood Pressure [Left Arm] 125/58 O2 Sat by Pulse Oximetry 94 Oriented: Normal Eyes: Normal Ear: Normal Nose: Normal Throat: Normal Respiratory: Diminished Throughout Cardiovascular: Normal. negative: S3, S4, Murmur : Normal Auscultation: Bowel Sounds: Normal Palpation: Normal Tenderness: Normal Skin: Normal Musculoskeletal: Normal Psychiatric: Normal Mood Description: Calm Affect: Normal Speech Pattern: Clear - Assessment/Plan (1) Dehydration Status: Acute Plan: ADMIT, NORMAL SALINE AT 80 ML/HR, PROTONIX 40MG IV BID, PEPCID 20MG IV DAILY, CIPRO 200MG IV Q12H, LOMOTIL 1 TAB PO BID PRN, HUMULIN R SLIDING SCALE, ZOFRAN 4MG IV Q4H PRN, AND AMBIEN 10MG PO HS PRN. (2) Acute on chronic renal failure Qualifiers: Chronic kidney disease stage: stage 3 (moderate) Chronic kidney disease stage 3 subtype: unspecified whether 3a or 3b Status: Acute (3) Intractable diarrhea Status: Acute - Allergies Allergies/Adverse Reactions: Allergies Allergy/AdvReac Type Severity Reaction Status Date / Time No Known Drug Allergies Allergy Verified 09/21/17 07:49
[2020-11-18] MEDS: ZOFRAN INJ 4 MG VIAL IVP PRN (14:42)
[2020-11-18] MEDS: TYLENOL 325 MG TAB PO PRN (17:55)
[2020-11-18] MEDS: SNACK - Diabetic Appropriate PO SCH (20:00)
[2020-11-18] MEDS: AMBIEN PO PRN (20:40)
[2020-11-19] MEDS: NS 1000 ML 1,000 ML IV SCH ×2 (04:22→17:07)
[2020-11-19 06:05] LABS: BASOPHILS % (AUTO) 0.5 % (0.2-1.0); EOSINOPHILS # (AUTO) 0.3 x10^3/uL (0.0-0.2); EOSINOPHILS % (AUTO) 8.1 % (0.9-2.9); HEMATOCRIT 23.5 % (36.0-47.0); HEMOGLOBIN 7.8 g/dL (12.0-16.0); LYMPHOCYTES % (AUTO) 24.5 % (21.0-51.0); MEAN CORPUSCULAR HEMOGLOBIN 32.7 pg (27.0-34.0); MEAN CORPUSCULAR HGB CONC 33.2 g/dL (33.0-35.0); MEAN CORPUSCULAR VOLUME 98.6 fL (80.0-100.0); MEAN PLATELET VOLUME 10.3 fL (7.4-11.0); MONOCYTES # (AUTO) 0.4 x10^3/uL (0.3-0.8); NEUTROPHILS # (AUTO) 2.4 x10^3/uL (2.2-4.8); NEUTROPHILS % (AUTO) 56.9 % (42.0-75.0); PLATELET COUNT 114 X10^3/uL (150.0-450.0); RED BLOOD COUNT 2.39 X10^6/uL (3.5-5.4); RED CELL DISTRIBUTION WIDTH 15.6 % (11.6-16.5); WHITE BLOOD COUNT 4.3 X10^3/uL (3.6-10.0)
[2020-11-19 06:22] LABS: ALBUMIN 2.9 g/dL (3.4-5.0); CALCIUM 8.4 mg/dL (8.5-10.1); CARBON DIOXIDE 25.1 mmol/L (21-32); COR CA(FOR HYPOALB) 9.3 mg/dL (8.5-10.1); CREATININE 1.78 mg/dL (0.55-1.02); TOTAL PROTEIN 6.9 g/dL (6.4-8.2)
[2020-11-19] MEDS: CIPRO IV 200 MG PREMIX* 200 MG/100 ML BAG IV SCH ×2 (08:27→20:22)
[2020-11-19] MEDS: PEPCID 20 MG IV PREMIX* 20 MG/50 ML BAG IV SCH (08:28)
[2020-11-19] MEDS: ZOFRAN INJ 4 MG VIAL IVP PRN (08:28)
[2020-11-19] MEDS: PROTONIX INJ 40 MG VIAL IVP SCH ×2 (08:28→20:23)
[2020-11-19] MEDS: HumuLIN R SUBCUT PRN ×2 (11:40→17:40)
--- NOTE | 2020-11-19 14:28 | CT ---
HISTORYABDOMINAL PAIN/DISTENSIONSTUDYCT ABDOMEN/PELVIS without IV contrastCOMPARISONRenal ultrasound 11/05/2020 and abdomen x-ray 11/17/2020TECHNIQUEMultiple axial images of the abdomen and pelvis were obtained from the lung bases to the pubic symphysis without the administration of IV contrast. Dose reduction techniques including Automated Exposure Control (AEC) and adjustment of mA and kV were utilized.FINDINGSThe visualized portions of the lung bases reveal several nodules are seen in the lower lungs measuring up to 7 mm. Further evaluation with chest CT is recommended.Hepatomegaly and splenomegaly.Prior cholecystectomy. No biliary ductal dilation.No pancreatic abnormality is seen.The adrenal glands appear normal.1. mm nonobstructing stone in the lower pole of the right kidney. There are perinephric streaky densities bilaterally, left greater than right. Findings could be due to medical renal disease. No ureteral stones ureterectasis. Multiple phleboliths are seen in the pelvis. Bladder appears normal. There is hazy density adjacent to the left ureter but this appears more centralized in the lower pelvis. It is probably associated with inflammatory changes in the bowel.Increased small bowel air is seen without significant dilation or transition zone. Likely wall thickening is seen in the small bowel suggesting gastroenteritis. There appears to be mild wall thickening in the descending colon with adjacent inflammation. This could be colitis. There may be mild involvement of the sigmoid colon, also. Normal appendix is seen.No abnormalities are seen of the reproductive organs.Abdominal aorta is normal in size.Probably reactive lymph nodes are seen in the small bowel mesentery and amanuel hepatis region.No free intraperitoneal air or fluid is seen.No acute bony abnormality is seen. Prior right mastectomy.IMPRESSIONProbable gastroenteritis and mild left-sided colitis.1. mm nonobstructing right renal stone.Possible mild changes of poor renal function.Multiple lung nodules measuring up to 7 mm in greatest dimension. Further evaluation with chest CT is recommended to assess for any larger nodules.Electronically signed by: Giancarlo Cheung (Nov 19, 2020 14:26:27)
[2020-11-19 19:36] VITALS: BMI 28.5
[2020-11-19] MEDS: SNACK - Diabetic Appropriate PO SCH (20:56)
[2020-11-19] MEDS: TYLENOL 325 MG TAB PO PRN (22:17)
[2020-11-19] MEDS: AMBIEN PO PRN (22:18)
[2020-11-20 06:07] LABS: BASOPHILS % (AUTO) 0.5 % (0.2-1.0); EOSINOPHILS # (AUTO) 0.3 x10^3/uL (0.0-0.2); EOSINOPHILS % (AUTO) 8.7 % (0.9-2.9); HEMATOCRIT 23.5 % (36.0-47.0); HEMOGLOBIN 8.1 g/dL (12.0-16.0); LYMPHOCYTES # (AUTO) 0.9 X10^3/uL (1.3-2.9); MEAN CORPUSCULAR HEMOGLOBIN 33.6 pg (27.0-34.0); MEAN CORPUSCULAR HGB CONC 34.4 g/dL (33.0-35.0); MEAN CORPUSCULAR VOLUME 97.7 fL (80.0-100.0); MEAN PLATELET VOLUME 9.8 fL (7.4-11.0); MONOCYTES # (AUTO) 0.3 x10^3/uL (0.3-0.8); MONOCYTES % (AUTO) 7.9 % (0.0-13.0); NEUTROPHILS # (AUTO) 2.2 x10^3/uL (2.2-4.8); NEUTROPHILS % (AUTO) 58.9 % (42.0-75.0); PLATELET COUNT 137 X10^3/uL (150.0-450.0); RED CELL DISTRIBUTION WIDTH 15.7 % (11.6-16.5); WHITE BLOOD COUNT 3.7 X10^3/uL (3.6-10.0)
[2020-11-20] MEDS: HumuLIN R SUBCUT PRN ×4 (06:18→20:34)
[2020-11-20 06:24] LABS: ALBUMIN 2.9 g/dL (3.4-5.0); CALCIUM 8.2 mg/dL (8.5-10.1); CARBON DIOXIDE 22.9 mmol/L (21-32); COR CA(FOR HYPOALB) 9.1 mg/dL (8.5-10.1); CREATININE 1.39 mg/dL (0.55-1.02); TOTAL PROTEIN 6.9 g/dL (6.4-8.2)
[2020-11-20] MEDS: PEPCID 20 MG IV PREMIX* 20 MG/50 ML BAG IV SCH (09:07)
[2020-11-20] MEDS: CIPRO IV 200 MG PREMIX* 200 MG/100 ML BAG IV SCH ×2 (09:07→20:28)
[2020-11-20] MEDS: PROTONIX INJ 40 MG VIAL IVP SCH ×2 (09:07→20:30)
--- NOTE | 2020-11-20 14:08 | PCM.PROG ---
Progress Note - Progress Note for Day of Date of Exam: 11/19/20 - Subjective Subjective: WAS ADMITTED FOR DEHYDRATION, INTRACTABLE DIARRHEA, ANEMIA, AND ACUTE ON CHRONIC RENAL FAILURE. TODAY, SHE IS ALERT, LYING IN BED ON MORNING ROUNDS. SHE CONTINUES WITH COMPLAINTS OF ABDOMINAL PAIN, DIARRHEA, AND WEAKNESS. SHE DENIES SIGNIFICANT IMPROVEMENT IN SYMPTOMS THIS MORNING. HER ABDOMEN DOES APPEAR TO BE MORE DISTENDED THIS MORNING COMPARED TO YESTERDAY. ON EXAMINATION, HEART IS REGULAR IN RATE AND RHYTHM. BILATERAL LUNGS ARE NOTED WITH DIMINISHED LUNG SOUNDS THROUGHOUT. ABDOMEN IS ROUND AND NOTED WITH DIFFUSE TENDERNESS. HYPERACTIVE BOWEL SOUNDS ARE NOTED IN ALL QUADRANTS. HER VITALS THIS MORNING ARE: 98.7-89-18-97%-153/67. LABS WERE OBTAINED. ABNORMAL LAB VALUES INC LUDE THE FOLLOWING: RBC 2.39, HGB 7.8, HCT 23.5, PLT COUNT 114, BUN 43, CREATININE 1.78, GLUCOSE 190, CALCIUM 8.4, ALBUMIN 2.9. STOOLS WERE POSITIVE FOR OCCULT BLOOD AND WHITE CELLS. STOOL CULTURES ARE PENDING. URINE CULTURES ARE ALSO PENDING. SHE IS CURRENTLY RECEIVING NORMAL SALINE AT 80 ML/HR, PROTONIX 40MG IV BID, PEPCID 20MG IV DAILY, CIPRO 200MG IV Q12H, LOMOTIL 1 TAB PO BID PRN, HUMULIN R SLIDING SCALE, ZOFRAN 4MG IV Q4H PRN, AND AMBIEN 10MG PO HS PRN. TODAY, WE WILL OBTAIN AN ABDOMEN/PELVIS CT WITHOUT CONTRAST. OTHERWISE, WE WILL CONTINUE WITH CURRENT PLAN OF CARE. TIME SPENT ON CLINICAL ASSESSMENT, REVIWING LABS AND IMAGING, DECISION MAKING, AND DOCUMENTATION GREATER THAN 75 MINUTES. - Past Medical Family Social History Past Med/Fam/Surg Hx: No changes since H&P Allergies: Allergies No Known Drug Allergies Allergy (Verified 09/21/17 07:49) - Review of Systems ROS: No change since H&P - Vital Signs and I&O's Vital Signs: Temperature 97.6 F Pulse Rate [Left] 89 Respiratory Rate 18 Blood Pressure [Right Calf] 128/60 Blood Pressure [Left Calf] 120/68 Blood Pressure [Right Arm] 124/66 Blood Pressure [Left Arm] 176/90 O2 Sat by Pulse Oximetry 94 Intake and Output: Intake & Output 11/18/20 11/19/20 11/20/20 11/21/20 11:59 11:59 11:59 11:59 Intake Total 988 / 988 3154 / 3154 930 / 930 Balance 988 / 988 3154 / 3154 930 / 930 - Physical Exam Oriented: Normal Eyes: Normal Ear: Normal Nose: Normal Throat: Normal Respiratory: Generalized, Diminished Cardiovascular: Normal. negative: S3, S4, Murmur : Normal Auscultation: Bowel Sounds: Normal Palpation: Normal Tenderness: Diffuse, Mild. negative: Rebound, Guarding, Rigidity Skin: Normal Musculoskeletal: Normal Psychiatric: Normal Mood Description: Calm Affect: Normal Speech Pattern: Clear, Appropriate - Laboratory and Diagnostics Result Diagrams: 11/20/20 05:32 11/20/20 05:32 Labs: 11/18/20 04:42 Stool Stool Culture - Preliminary 11/18/20 04:42 Stool - Final 11/18/20 11:11 Urine,Clean Catch Urine Culture - Final Laboratory WBC 3.7 X10^3/uL (3.6-10.0) 11/20/20 05:32 RBC 2.40 X10^6/uL (3.5-5.4) L 11/20/20 05:32 Hgb 8.1 g/dL (12.0-16.0) L 11/20/20 05:32 Hct 23.5 % (36.0-47.0) L 11/20/20 05:32 MCV 97.7 fL (80.0-100.0) 11/20/20 05:32 MCH 33.6 pg (27.0-34.0) 11/20/20 05:32 MCHC 34.4 g/dL (33.0-35.0) 11/20/20 05:32 RDW 15.7 % (11.6-16.5) 11/20/20 05:32 Plt Count 137 X10^3/uL (150.0-450.0) L 11/20/20 05:32 MPV 9.8 fL (7.4-11.0) 11/20/20 05:32 Neut % (Auto) 58.9 % (42.0-75.0) 11/20/20 05:32 Lymph % (Auto) 24.0 % (21.0-51.0) 11/20/20 05:32 [place] % (Auto) 7.9 % (0.0-13.0) 11/20/20 05:32 Eos % (Auto) 8.7 % (0.9-2.9) H 11/20/20 05:32 Baso % (Auto) 0.5 % (0.2-1.0) 11/20/20 05:32 Neut # (Auto) 2.2 x10^3/uL (2.2-4.8) 11/20/20 05:32 Lymph # (Auto) 0.9 X10^3/uL (1.3-2.9) L 11/20/20 05:32 [place] # (Auto) 0.3 x10^3/uL (0.3-0.8) 11/20/20 05:32 Eos # (Auto) 0.3 x10^3/uL (0.0-0.2) H 11/20/20 05:32 Baso # (Auto) 0.0 X10^3/uL (0.0-0.1) 11/20/20 05:32 Absolute Nucleated RBC 0.0 /100WBC 11/20/20 05:32 Sodium 140 mmol/L (136-145) 11/20/20 05:32 Corrected Sodium 143 mmol/L (136-145) 11/20/20 05:32 Potassium 4.3 mmol/L (3.5-5.1) 11/20/20 05:32 Chloride 107 mmol/L (98-107) 11/20/20 05:32 Carbon Dioxide 22.9 mmol/L (21-32) 11/20/20 05:32 BUN 27 mg/dL (7-18) H 11/20/20 05:32 Creatinine 1.39 mg/dL (0.55-1.02) H 11/20/20 05:32 Est GFR (MDRD) Af Amer 48 (>60) L 11/20/20 05:32 Est GFR (MDRD) Non-Af 40 (>60) L 11/20/20 05:32 Glucose 219 mg/dL (65-99) H 11/20/20 05:32 POC Glucose (mg/dL) 227 mg/dL (65-99) H 11/20/20 11:10 Calcium 8.2 mg/dL (8.5-10.1) L 11/20/20 05:32 Corrected Calcium 9.1 mg/dL (8.5-10.1) 11/20/20 05:32 Magnesium 1.9 mg/dL (1.7-2.9) 11/20/20 05:32 Total Bilirubin 0.30 mg/dL (0.2-1.0) 11/20/20 05:32 AST 31 Units/L (15-37) 11/20/20 05:32 ALT 26 Units/L (12-78) 11/20/20 05:32 Alkaline Phosphatase 55 Units/L (46-116) 11/20/20 05:32 Total Protein 6.9 g/dL (6.4-8.2) 11/20/20 05:32 Albumin 2.9 g/dL (3.4-5.0) L 11/20/20 05:32 Globulin 4.0 g/dL (2.5-4.5) 11/20/20 05:32 Albumin/Globulin Ratio 0.7 Ratio (1.1-2.1) L 11/20/20 05:32 Specimen Type Clean catch urine 11/18/20 11:11 Urine Color Yellow (YELLOW) 11/18/20 11:11 Urine Appearance Clear (CLEAR) 11/18/20 11:11 Urine pH 5.0 (5.0 - 8.0) 11/18/20 11:11 Ur Specific [place] 1.020 (1.000-1.030) 11/18/20 11:11 Urine Protein Negative (NEGATIVE) 11/18/20 11:11 Urine Glucose (UA) 1+ (NEGATIVE) 11/18/20 11:11 Urine Ketones Negative (NEGATIVE) 11/18/20 11:11 Urine Occult Blood Negative (NEGATIVE) 11/18/20 11:11 Urine Nitrite Negative (NEGATIVE) 11/18/20 11:11 Urine Bilirubin Negative (NEGATIVE) 11/18/20 11:11 Urine Urobilinogen Normal (NORMAL) 11/18/20 11:11 Ur Leukocyte Esterase Negative (NEGATIVE) 11/18/20 11:11 Stool Description 25g mucoid unformed 11/18/20 04:42 Stool Description 25g mucoid unformed 11/18/20 04:42 Stl Occult Blood (IFOB) Positive (NEGATIVE) A 11/18/20 04:42 Stool for White Cells Positive (NEGATIVE) A 11/18/20 04:42 Stl C. diff Tox B Gene Negative (NEGATIVE) 11/18/20 04:42 Stl C. diff 027-NAP1-BI Negative (NEGATIVE) 11/18/20 04:42 Stool H. pylori Ag Negative (NEGATIVE) 11/18/20 04:42 SARS-CoV-2 (PCR) Cancelled 11/17/20 18:45 Cryptosporid parvum Ag Negative (NEGATIVE) 11/18/20 04:42 Giardia lamblia Ag Negative (NEGATIVE) 11/18/20 04:42 Influenza Type A (PCR) Cancelled 11/17/20 18:45 Influenza Type B (PCR) Cancelled 11/17/20 18:45 RSV (PCR) Cancelled 11/17/20 18:45 SARS CoV-2 RNA Rapid JON Negative (NEGATIVE) 11/17/20 18:45 - Plan (1) Dehydration Status: Acute Plan: ADMIT, NORMAL SALINE AT 80 ML/HR, PROTONIX 40MG IV BID, PEPCID 20MG IV DAILY, CIPRO 200MG IV Q12H, LOMOTIL 1 TAB PO BID PRN, HUMULIN R SLIDING SCALE, ZOFRAN 4MG IV Q4H PRN, AND AMBIEN 10MG PO HS PRN. (2) Acute on chronic renal failure Status: Acute Qualifiers: Chronic kidney disease stage: stage 3 (moderate) Chronic kidney disease stage 3 subtype: unspecified whether 3a or 3b (3) Intractable diarrhea Status: Acute (4) Abdominal pain Status: Acute Qualifiers: Abdominal location: generalized Qualified Code(s): R10.84 - Generalized abdominal pain Plan: OBTAIN ABDOMEN/PELVIS CT WITHOUT CONTRAST (5) Anemia Status: Acute Qualifiers: Anemia type: iron deficiency Iron deficiency anemia type: chronic blood loss Qualified Code(s): D50.0 - Iron deficiency anemia secondary to blood loss (chronic)
--- NOTE | 2020-11-20 14:12 | PCM.PROG ---
Progress Note - Progress Note for Day of Date of Exam: 11/20/20 - Subjective Subjective: WAS ADMITTED FOR DEHYDRATION, INTRACTABLE DIARRHEA, ABDOMINAL PAIN, ANEMIA, AND ACUTE ON CHRONIC RENAL FAILURE. TODAY, SHE IS ALERT, LYING IN BED ON MORNING ROUNDS. SHE CONTINUES WITH COMPLAINTS OF ABDOMINAL PAIN, DIARRHEA, AND WEAKNESS. SHE REPORTS SLIGHT IMPROVEMENT IN SYMPTOMS SINCE YESTERDAY. HER ABDOMEN APPEARS SLIGHTLY LESS DISTENDED TODAY. ON EXAMINATION, HEART IS REGULAR IN RATE AND RHYTHM. BILATERAL LUNGS ARE NOTED WITH DIMINISHED LUNG SOUNDS THROUGHOUT. ABDOMEN IS ROUND AND NOTED WITH DIFFUSE TENDERNESS. HYPERACTIVE BOWEL SOUNDS ARE NOTED IN ALL QUADRANTS. HER VITALS THIS MORNING ARE: 97.4-92-18-98%-195/87. LABS WERE OBTAINED. ABNORMAL LAB VALUES INCLUDE THE FOLLOWING: RBC 2.40, HGB 8.1, HCT 23.5, PLT COUNT 137, BUN 27, CREATININE 1.39, GLUCOSE 219, CALCIUM 8.2, ALBUMIN 2.9. STOOLS WERE POSITIVE FOR OCCULT BLOOD AND WHITE CELLS. STOOL AND URINE CULTURES ARE NEGATIVE. WE OBTAINED AN ABDOMEN/PELVIS CT WITHOUT CONTRAST YESTERDAY. IT REVEALED: Probable gastroente ritis and mild left-sided colitis. 1 mm nonobstructing right renal stone. Possible mild changes of poor renal function. Multiple lung nodules measuring up to 7 mm in greatest dimension. Further evaluation with chest CT is recommended to assess for any larger nodules. PATIENT IS AWARE OF NODULES. WE HAVE BEEN FOLLOWING DUE TO HISTORY OF BREAST CANCER. WE WILL OBTAIN A CHEST CT TODAY TO FURTHER ASSESS. SHE IS CURRENTLY RECEIVING NORMAL SALINE AT 80 ML/HR, PROTONIX 40MG IV BID, PEPCID 20MG IV DAILY, CIPRO 200MG IV Q12H, LOMOTIL 1 TAB PO BID PRN, HUMULIN R SLIDING SCALE, ZOFRAN 4MG IV Q4H PRN, AND AMBIEN 10MG PO HS PRN. WE WILL CONTINUE WITH CURRENT PLAN OF CARE TODAY. OTHERWISE, WE WILL FOLLOW UP WITH AM LABS AND CONTINUE TO MONITOR. TIME SPENT ON CLINICAL ASSESSMENT, REVIWING LABS AND IMAGING, DECISION MAKING, AND DOCUMENTATION GREATER THAN 75 MINUTES. - Past Medical Family Social History Past Med/Fam/Surg Hx: No changes since H&P Allergies: Allergies No Known Drug Allergies Allergy (Verified 09/21/17 07:49) - Review of Systems ROS: No change since H&P - Vital Signs and I&O's Vital Signs: Temperature 97.6 F Pulse Rate [Left] 89 Respiratory Rate 18 Blood Pressure [Right Calf] 128/60 Blood Pressure [Left Calf] 120/68 Blood Pressure [Right Arm] 124/66 Blood Pressure [Left Arm] 176/90 O2 Sat by Pulse Oximetry 94 Intake and Output: Intake & Output 11/18/20 11/19/20 11/20/20 11/21/20 11:59 11:59 11:59 11:59 Intake Total 988 / 988 3154 / 3154 930 / 930 Balance 988 / 988 3154 / 3154 930 / 930 - Physical Exam Oriented: Normal Eyes: Normal Ear: Normal Nose: Normal Throat: Normal Respiratory: Generalized, Diminished Cardiovascular: Normal. negative: S3, S4, Murmur : Normal Auscultation: Bowel Sounds: Normal Palpation: Normal Tenderness: Diffuse, Mild. negative: Rebound, Guarding, Rigidity Skin: Normal Musculoskeletal: Normal Psychiatric: Normal Mood Description: Calm Affect: Normal Speech Pattern: Clear, Appropriate - Laboratory and Diagnostics Result Diagrams: 11/20/20 05:32 11/20/20 05:32 Labs: 11/18/20 04:42 Stool Stool Culture - Preliminary 11/18/20 04:42 Stool - Final 11/18/20 11:11 Urine,Clean Catch Urine Culture - Final Laboratory WBC 3.7 X10^3/uL (3.6-10.0) 11/20/20 05:32 RBC 2.40 X10^6/uL (3.5-5.4) L 11/20/20 05:32 Hgb 8.1 g/dL (12.0-16.0) L 11/20/20 05:32 Hct 23.5 % (36.0-47.0) L 11/20/20 05:32 MCV 97.7 fL (80.0-100.0) 11/20/20 05:32 MCH 33.6 pg (27.0-34.0) 11/20/20 05:32 MCHC 34.4 g/dL (33.0-35.0) 11/20/20 05:32 RDW 15.7 % (11.6-16.5) 11/20/20 05:32 Plt Count 137 X10^3/uL (150.0-450.0) L 11/20/20 05:32 MPV 9.8 fL (7.4-11.0) 11/20/20 05:32 Neut % (Auto) 58.9 % (42.0-75.0) 11/20/20 05:32 Lymph % (Auto) 24.0 % (21.0-51.0) 11/20/20 05:32 [place] % (Auto) 7.9 % (0.0-13.0) 11/20/20 05:32 Eos % (Auto) 8.7 % (0.9-2.9) H 11/20/20 05:32 Baso % (Auto) 0.5 % (0.2-1.0) 11/20/20 05:32 Neut # (Auto) 2.2 x10^3/uL (2.2-4.8) 11/20/20 05:32 Lymph # (Auto) 0.9 X10^3/uL (1.3-2.9) L 11/20/20 05:32 [place] # (Auto) 0.3 x10^3/uL (0.3-0.8) 11/20/20 05:32 Eos # (Auto) 0.3 x10^3/uL (0.0-0.2) H 11/20/20 05:32 Baso # (Auto) 0.0 X10^3/uL (0.0-0.1) 11/20/20 05:32 Absolute Nucleated RBC 0.0 /100WBC 11/20/20 05:32 Sodium 140 mmol/L (136-145) 11/20/20 05:32 Corrected Sodium 143 mmol/L (136-145) 11/20/20 05:32 Potassium 4.3 mmol/L (3.5-5.1) 11/20/20 05:32 Chloride 107 mmol/L (98-107) 11/20/20 05:32 Carbon Dioxide 22.9 mmol/L (21-32) 11/20/20 05:32 BUN 27 mg/dL (7-18) H 11/20/20 05:32 Creatinine 1.39 mg/dL (0.55-1.02) H 11/20/20 05:32 Est GFR (MDRD) Af Amer 48 (>60) L 11/20/20 05:32 Est GFR (MDRD) Non-Af 40 (>60) L 11/20/20 05:32 Glucose 219 mg/dL (65-99) H 11/20/20 05:32 POC Glucose (mg/dL) 227 mg/dL (65-99) H 11/20/20 11:10 Calcium 8.2 mg/dL (8.5-10.1) L 11/20/20 05:32 Corrected Calcium 9.1 mg/dL (8.5-10.1) 11/20/20 05:32 Magnesium 1.9 mg/dL (1.7-2.9) 11/20/20 05:32 Total Bilirubin 0.30 mg/dL (0.2-1.0) 11/20/20 05:32 AST 31 Units/L (15-37) 11/20/20 05:32 ALT 26 Units/L (12-78) 11/20/20 05:32 Alkaline Phosphatase 55 Units/L (46-116) 11/20/20 05:32 Total Protein 6.9 g/dL (6.4-8.2) 11/20/20 05:32 Albumin 2.9 g/dL (3.4-5.0) L 11/20/20 05:32 Globulin 4.0 g/dL (2.5-4.5) 11/20/20 05:32 Albumin/Globulin Ratio 0.7 Ratio (1.1-2.1) L 11/20/20 05:32 Specimen Type Clean catch urine 11/18/20 11:11 Urine Color Yellow (YELLOW) 11/18/20 11:11 Urine Appearance Clear (CLEAR) 11/18/20 11:11 Urine pH 5.0 (5.0 - 8.0) 11/18/20 11:11 Ur Specific [place] 1.020 (1.000-1.030) 11/18/20 11:11 Urine Protein Negative (NEGATIVE) 11/18/20 11:11 Urine Glucose (UA) 1+ (NEGATIVE) 11/18/20 11:11 Urine Ketones Negative (NEGATIVE) 11/18/20 11:11 Urine Occult Blood Negative (NEGATIVE) 11/18/20 11:11 Urine Nitrite Negative (NEGATIVE) 11/18/20 11:11 Urine Bilirubin Negative (NEGATIVE) 11/18/20 11:11 Urine Urobilinogen Normal (NORMAL) 11/18/20 11:11 Ur Leukocyte Esterase Negative (NEGATIVE) 11/18/20 11:11 Stool Description 25g mucoid unformed 11/18/20 04:42 Stool Description 25g mucoid unformed 11/18/20 04:42 Stl Occult Blood (IFOB) Positive (NEGATIVE) A 11/18/20 04:42 Stool for White Cells Positive (NEGATIVE) A 11/18/20 04:42 Stl C. diff Tox B Gene Negative (NEGATIVE) 11/18/20 04:42 Stl C. diff 027-NAP1-BI Negative (NEGATIVE) 11/18/20 04:42 Stool H. pylori Ag Negative (NEGATIVE) 11/18/20 04:42 SARS-CoV-2 (PCR) Cancelled 11/17/20 18:45 Cryptosporid parvum Ag Negative (NEGATIVE) 11/18/20 04:42 Giardia lamblia Ag Negative (NEGATIVE) 11/18/20 04:42 Influenza Type A (PCR) Cancelled 11/17/20 18:45 Influenza Type B (PCR) Cancelled 11/17/20 18:45 RSV (PCR) Cancelled 11/17/20 18:45 SARS CoV-2 RNA Rapid JON Negative (NEGATIVE) 11/17/20 18:45 - Plan (1) Dehydration Status: Acute Plan: NORMAL SALINE AT 80 ML/HR, PROTONIX 40MG IV BID, PEPCID 20MG IV DAILY, CIPRO 200MG IV Q12H, LOMOTIL 1 TAB PO BID PRN, HUMULIN R SLIDING SCALE, ZOFRAN 4MG IV Q4H PRN, AND AMBIEN 10MG PO HS PRN. (2) Acute on chronic renal failure Status: Acute Qualifiers: Chronic kidney disease stage: stage 3 (moderate) Chronic kidney disease stage 3 subtype: unspecified whether 3a or 3b (3) Intractable diarrhea Status: Acute (4) Abdominal pain Status: Acute Qualifiers: Abdominal location: generalized Qualified Code(s): R10.84 - Generalized abdominal pain (5) Anemia Status: Acute Qualifiers: Anemia type: iron deficiency Iron deficiency anemia type: chronic blood loss Qualified Code(s): D50.0 - Iron deficiency anemia secondary to blood loss (chronic)
[2020-11-20] MEDS: NS 1000 ML 1,000 ML IV SCH (14:41)
--- NOTE | 2020-11-20 14:44 | CT ---
HISTORYF/U LUNG NODULE hypertension, COPD and diabetes mellitus. History of left breast cancer.STUDYCHEST W/O CONCOMPARISONNoneTECHNIQUEMultiple CT axial images of the chest were obtained without IV contrast. Coronal and sagittal images were reconstructed. Dose reduction techniques included Automated Exposure Control (AEC) and adjustment of mA and kV.FINDINGSSurgical clips the present thyroid fossa.No axillary mass or significant axillary lymphadenopathy is identified. Postsurgical changes and presumed scarring is present in the left breast tissue. The patient has had a right mastectomy.Cardiomegaly is present. Atherosclerotic calcifications are present in the coronary arteries. The pulmonary artery and aorta have a normal caliber. No mediastinal mass or significant lymphadenopathy.Multiple pulmonary nodules present. Largest is probably the 1 in the right middle lobe measuring 6 mm. Image 37 series 4. These are stable when compared to the prior study.No pneumonia or pleural effusion. Degenerative changes are present in the spine.See abdomen and pelvis CT report for additional findings.IMPRESSION1. Stable pulmonary nodulesElectronically signed by: Jayme Heard (Nov 20, 2020 14:42:36)
[2020-11-20] MEDS: SNACK - Diabetic Appropriate PO SCH (20:26)
[2020-11-20] MEDS: TYLENOL 325 MG TAB PO PRN (22:33)
[2020-11-20] MEDS: AMBIEN PO PRN (22:34)
[2020-11-21] MEDS: HumuLIN R SUBCUT PRN ×5 (06:03→23:26)
[2020-11-21] MEDS: NS 1000 ML 1,000 ML IV SCH ×3 (06:09→18:58)
[2020-11-21 06:20] LABS: BASOPHILS % (AUTO) 0.8 % (0.2-1.0); CALCIUM 8.2 mg/dL (8.5-10.1); CARBON DIOXIDE 23.8 mmol/L (21-32); CREATININE 1.28 mg/dL (0.55-1.02); EOSINOPHILS # (AUTO) 0.3 x10^3/uL (0.0-0.2); EOSINOPHILS % (AUTO) 6.5 % (0.9-2.9); HEMATOCRIT 23.3 % (36.0-47.0); HEMOGLOBIN 7.7 g/dL (12.0-16.0); LYMPHOCYTES # (AUTO) 1.1 X10^3/uL (1.3-2.9); LYMPHOCYTES % (AUTO) 24.6 % (21.0-51.0); MEAN CORPUSCULAR HEMOGLOBIN 32.6 pg (27.0-34.0); MEAN CORPUSCULAR HGB CONC 33.2 g/dL (33.0-35.0); MEAN CORPUSCULAR VOLUME 98.4 fL (80.0-100.0); MEAN PLATELET VOLUME 9.9 fL (7.4-11.0); MONOCYTES # (AUTO) 0.4 x10^3/uL (0.3-0.8); MONOCYTES % (AUTO) 8.9 % (0.0-13.0); NEUTROPHILS # (AUTO) 2.7 x10^3/uL (2.2-4.8); NEUTROPHILS % (AUTO) 59.2 % (42.0-75.0); PLATELET COUNT 153 X10^3/uL (150.0-450.0); RED BLOOD COUNT 2.37 X10^6/uL (3.5-5.4); RED CELL DISTRIBUTION WIDTH 15.4 % (11.6-16.5); TOTAL PROTEIN 7.1 g/dL (6.4-8.2); WHITE BLOOD COUNT 4.6 X10^3/uL (3.6-10.0)
[2020-11-21] MEDS: CIPRO IV 200 MG PREMIX* 200 MG/100 ML BAG IV SCH ×2 (08:39→21:41)
[2020-11-21] MEDS: PEPCID 20 MG IV PREMIX* 20 MG/50 ML BAG IV SCH (08:40)
[2020-11-21] MEDS: PROTONIX INJ 40 MG VIAL IVP SCH ×2 (08:40→21:42)
--- NOTE | 2020-11-21 10:58 | PCM.PROG ---
Progress Note Progress Note for Day of Date of Exam: 11/21/20 Subjective Subjective: Patient seen at bedside, no events overnight. She states she feels better today. Her diarrhea has been improving. She has been tolerating PO diet. She is being treated for gastroenteritis/colitis, dehydration and anemia. She reports having melena. She has a hx of stomach ulcer and GI bleed. She sees Dr. Nesbitt and was suppose to have capsule endoscopy but patient cancelled it due to pandemic. Labs: Hgb 7.7, down from 8.1, BUN/Cr: 22/1.28 down from 1.39 FOBT + Stool WBC + Chest CT: stable pulmonary nodules Plan: monitor H/H, transfuse < 7, continue protonix, Pepcid and Cipro. Continue gentle hydration. Monitor AM labs. Past Medical Family Social History Past Med/Fam/Surg Hx: No changes since H&P Allergies: Allergies No Known Drug Allergies Allergy (Verified 09/21/17 07:49) Review of Systems ROS: No change since H&P Vital Signs and I&O's Vital Signs: Temperature 97.8 F Pulse Rate [Left] 92 Respiratory Rate 20 Blood Pressure [Right Calf] 128/60 Blood Pressure [Left Calf] 120/68 Blood Pressure [Right Arm] 124/66 Blood Pressure [Left Arm] 183/84 O2 Sat by Pulse Oximetry 100 Intake and Output: Intake & Output 11/18/20 11/19/20 11/20/20 11/21/20 23:59 23:59 23:59 23:59 Intake Total 2938 / 2938 1504 / 1504 209 / 4 462 / 462 Balance 2938 / 2938 1504 / 1504 2093 / 2093 462 / 462 Physical Exam Oriented: Normal Eyes: Normal Ear: Normal Nose: Normal Throat: Normal Respiratory: Normal Cardiovascular: Normal; negative S3, S4 and Murmur Auscultation: Bowel Sounds: Normal Tenderness: Normal; negative Rebound, Guarding and Rigidity Skin: Normal Musculoskeletal: Normal Psychiatric: Normal Mood Description: Calm Affect: Normal Speech Pattern: Clear and Appropriate Laboratory and Diagnostics Result Diagrams: 11/21/20 05:38 11/21/20 05:38 Labs: 11/18/20 04:42 Stool Stool Culture - Final 11/18/20 04:42 Stool - Final 11/18/20 11:11 Urine,Clean Catch Urine Culture - Final Laboratory WBC 4.6 X10^3/uL (3.6-10.0) 11/21/20 05:38 RBC 2.37 X10^6/uL (3.5-5.4) L 11/21/20 05:38 Hgb 7.7 g/dL (12.0-16.0) L 11/21/20 05:38 Hct 23.3 % (36.0-47.0) L 11/21/20 05:38 MCV 98.4 fL (80.0-100.0) 11/21/20 05:38 MCH 32.6 pg (27.0-34.0) 11/21/20 05:38 MCHC 33.2 g/dL (33.0-35.0) 11/21/20 05:38 RDW 15.4 % (11.6-16.5) 11/21/20 05:38 Plt Count 153 X10^3/uL (150.0-450.0) 11/21/20 05:38 MPV 9.9 fL (7.4-11.0) 11/21/20 05:38 Neut % (Auto) 59.2 % (42.0-75.0) 11/21/20 05:38 Lymph % (Auto) 24.6 % (21.0-51.0) 11/21/20 05:38 [place] % (Auto) 8.9 % (0.0-13.0) 11/21/20 05:38 Eos % (Auto) 6.5 % (0.9-2.9) H 11/21/20 05:38 Baso % (Auto) 0.8 % (0.2-1.0) 11/21/20 05:38 Neut # (Auto) 2.7 x10^3/uL (2.2-4.8) 11/21/20 05:38 Lymph # (Auto) 1.1 X10^3/uL (1.3-2.9) L 11/21/20 05:38 [place] # (Auto) 0.4 x10^3/uL (0.3-0.8) 11/21/20 05:38 Eos # (Auto) 0.3 x10^3/uL (0.0-0.2) H 11/21/20 05:38 Baso # (Auto) 0.0 X10^3/uL (0.0-0.1) 11/21/20 05:38 Absolute Nucleated RBC 0.0 /100WBC 11/21/20 05:38 Sodium 138 mmol/L (136-145) 11/21/20 05:38 Corrected Sodium 140 mmol/L (136-145) 11/21/20 05:38 Potassium 4.4 mmol/L (3.5-5.1) 11/21/20 05:38 Chloride 106 mmol/L (98-107) 11/21/20 05:38 Carbon Dioxide 23.8 mmol/L (21-32) 11/21/20 05:38 BUN 22 mg/dL (7-18) H 11/21/20 05:38 Creatinine 1.28 mg/dL (0.55-1.02) H 11/21/20 05:38 Est GFR (MDRD) Af Amer 53 (>60) L 11/21/20 05:38 Est GFR (MDRD) Non-Af 43 (>60) L 11/21/20 05:38 Glucose 185 mg/dL (65-99) H 11/21/20 05:38 POC Glucose (mg/dL) 168 mg/dL (65-99) H 11/21/20 05:41 Calcium 8.2 mg/dL (8.5-10.1) L 11/21/20 05:38 Corrected Calcium 9.0 mg/dL (8.5-10.1) 11/21/20 05:38 Magnesium 1.9 mg/dL (1.7-2.9) 11/20/20 05:32 Total Bilirubin 0.30 mg/dL (0.2-1.0) 11/21/20 05:38 AST 34 Units/L (15-37) 11/21/20 05:38 ALT 29 Units/L (12-78) 11/21/20 05:38 Alkaline Phosphatase 63 Units/L (46-116) 11/21/20 05:38 Total Protein 7.1 g/dL (6.4-8.2) 11/21/20 05:38 Albumin 3.0 g/dL (3.4-5.0) L 11/21/20 05:38 Globulin 4.1 g/dL (2.5-4.5) 11/21/20 05:38 Albumin/Globulin Ratio 0.7 Ratio (1.1-2.1) L 11/21/20 05:38 Specimen Type Clean catch urine 11/18/20 11:11 Urine Color Yellow (YELLOW) 11/18/20 11:11 Urine Appearance Clear (CLEAR) 11/18/20 11:11 Urine pH 5.0 (5.0 - 8.0) 11/18/20 11:11 Ur Specific [place] 1.020 (1.000-1.030) 11/18/20 11:11 Urine Protein Negative (NEGATIVE) 11/18/20 11:11 Urine Glucose (UA) 1+ (NEGATIVE) 11/18/20 11:11 Urine Ketones Negative (NEGATIVE) 11/18/20 11:11 Urine Occult Blood Negative (NEGATIVE) 11/18/20 11:11 Urine Nitrite Negative (NEGATIVE) 11/18/20 11:11 Urine Bilirubin Negative (NEGATIVE) 11/18/20 11:11 Urine Urobilinogen Normal (NORMAL) 11/18/20 11:11 Ur Leukocyte Esterase Negative (NEGATIVE) 11/18/20 11:11 Stool Description 25g mucoid unformed 11/18/20 04:42 Stool Description 25g mucoid unformed 11/18/20 04:42 Stl Occult Blood (IFOB) Positive (NEGATIVE) A 11/18/20 04:42 Stool for White Cells Positive (NEGATIVE) A 11/18/20 04:42 Stl C. diff Tox B Gene Negative (NEGATIVE) 11/18/20 04:42 Stl C. diff [id number] Negative (NEGATIVE) 11/18/20 04:42 Stool H. pylori Ag Negative (NEGATIVE) 11/18/20 04:42 SARS-CoV-2 (PCR) Cancelled 11/17/20 18:45 Cryptosporid parvum Ag Negative (NEGATIVE) 11/18/20 04:42 Giardia lamblia Ag Negative (NEGATIVE) 11/18/20 04:42 Influenza Type A (PCR) Cancelled 11/17/20 18:45 Influenza Type B (PCR) Cancelled 11/17/20 18:45 RSV (PCR) Cancelled 11/17/20 18:45 SARS CoV-2 RNA Rapid JON Negative (NEGATIVE) 11/17/20 18:45 Plan (1) Dehydration: Status: Acute Plan: NORMAL SALINE AT 80 ML/HR, PROTONIX 40MG IV BID, PEPCID 20MG IV DAILY, CIPRO 200MG IV Q12H, LOMOTIL 1 TAB PO BID PRN, HUMULIN R SLIDING SCALE, ZOFRAN 4MG IV Q4H PRN, AND AMBIEN 10MG PO HS PRN. (2) Acute on chronic renal failure: Status: Acute Qualifiers: Chronic kidney disease stage: stage 3 (moderate) Chronic kidney disease stage 3 subtype: unspecified whether 3a or 3b Acute renal failure type: unspecified Qualified Code(s): N17.9 - Acute kidney failure, unspecified; N18.30 - Chronic kidney disease, stage 3 unspecified (3) Intractable diarrhea: Status: Acute (4) Abdominal pain: Status: Acute Qualifiers: Abdominal location: generalized Qualified Code(s): R10.84 - Generalized abdominal pain Plan: OBTAIN ABDOMEN/PELVIS CT WITHOUT CONTRAST (5) Anemia: Status: Acute Qualifiers: Anemia type: iron deficiency Iron deficiency anemia type: chronic blood loss Qualified Code(s): D50.0 - Iron deficiency anemia secondary to blood loss (chronic) (6) Colitis: Status: Acute (7) Pulmonary nodule: Status: Acute
[2020-11-21] MEDS: ZOFRAN INJ 4 MG VIAL IVP PRN (11:17)
[2020-11-21] MEDS: AMBIEN PO PRN (21:00)
[2020-11-21] MEDS: TYLENOL 325 MG TAB PO PRN (21:00)
[2020-11-21] MEDS: SNACK - Diabetic Appropriate PO SCH (21:41)
[2020-11-22] MEDS: NS 1000 ML 1,000 ML IV SCH (05:48)
[2020-11-22 06:25] LABS: BASOPHILS % (AUTO) 0.5 % (0.2-1.0); EOSINOPHILS # (AUTO) 0.3 x10^3/uL (0.0-0.2); EOSINOPHILS % (AUTO) 7.3 % (0.9-2.9); HEMATOCRIT 26.4 % (36.0-47.0); HEMOGLOBIN 8.9 g/dL (12.0-16.0); MEAN CORPUSCULAR HEMOGLOBIN 33.2 pg (27.0-34.0); MEAN CORPUSCULAR HGB CONC 33.6 g/dL (33.0-35.0); MEAN CORPUSCULAR VOLUME 98.7 fL (80.0-100.0); MEAN PLATELET VOLUME 9.8 fL (7.4-11.0); MONOCYTES # (AUTO) 0.3 x10^3/uL (0.3-0.8); MONOCYTES % (AUTO) 7.6 % (0.0-13.0); NEUTROPHILS # (AUTO) 2.6 x10^3/uL (2.2-4.8); NEUTROPHILS % (AUTO) 60.6 % (42.0-75.0); PLATELET COUNT 174 X10^3/uL (150.0-450.0); RED BLOOD COUNT 2.68 X10^6/uL (3.5-5.4); RED CELL DISTRIBUTION WIDTH 15.5 % (11.6-16.5); WHITE BLOOD COUNT 4.3 X10^3/uL (3.6-10.0)
[2020-11-22 06:38] LABS: ALANINE AMINOTRANSFERASE 30 Units/L (12-78); ALBUMIN 3.4 g/dL (3.4-5.0); ALKALINE PHOSPHATASE 82 Units/L (46-116); ASPARTATE AMINO TRANSFERASE 33 Units/L (15-37); BLOOD UREA NITROGEN 16 mg/dL (7-18); CALCIUM 8.6 mg/dL (8.5-10.1); CHLORIDE 105 mmol/L (98-107); COR NA(FOR HYPERGLY) 140 mmol/L (136-145); CREATININE 1.29 mg/dL (0.55-1.02); SODIUM 137 mmol/L (136-145); TOTAL PROTEIN 7.9 g/dL (6.4-8.2); eGFR NON BLACK RACES 43 (>60)
[2020-11-22 08:29] VITALS: BP 180/84
[2020-11-22] MEDS: CIPRO IV 200 MG PREMIX* 200 MG/100 ML BAG IV SCH (08:57)
[2020-11-22] MEDS: PROTONIX INJ 40 MG VIAL IVP SCH (08:57)
[2020-11-22] MEDS: PEPCID 20 MG IV PREMIX* 20 MG/50 ML BAG IV SCH (08:57)
--- NOTE | 2020-11-22 10:19 | W.DIS.FURT ---
Summary of Discharge Discharge Summary of Date Date of Exam: 11/22/20 Admission Date Date of Admission: 11/18/20 Admission Diagnosis Patient Problems (Updated 11/24/20 @ 13:12 by Summer Godoy) Anemia (Chronic) D64.9 Dehydration (Acute) E86.0 Acute on chronic renal failure (Acute) N17.9, N18.9 Intractable diarrhea (Acute) R19.7 Abdominal pain (Acute) R10.9 Hospital Course: Ms. Burris is a 75y/o female with a PMH of anemia, CAD, CHF, HLD, HTN, COPD, PUD, CKD and DM presesented with weakness, abdominal pain and diarrhea. She stated that her stools were black and tarry. She has severe anemia, recieved 2 units of PRBC last week due to Hgb being 7.9. She continued to have weakness and felt dizzy so she was admitted for further evaluation. On admission, her Hgb 9.2, plt 116, Cr 2.88. Stool studies showed positive occult blood and WBCs. COVID test was ngative. CTAP showed gastroenteritis/colitis. Patient was started on IV Cipro and hydration with NS. Her labs and electrolytes were monitored da yomi and replaced as needed. Patient's hgb remained stable and she did not require blood transfusions. She was tolerated PO intake and her diarrhea had slowed down. She was stable for discharge. Her hgb on discharged was 8.9. Patient will f/u with PCP as scheduled. Vital Signs: Vital Signs (72 hours) 11/19/20 12:00 11/19/20 16:00 11/19/20 20:00 Temperature 97.6 F 98.4 F Pulse Rate [Left] 94 H 88 85 Respiratory Rate 20 20 20 Blood Pressure [Left Arm] 179/87 164/78 173/79 O2 Sat by Pulse Oximetry 95 95 96 11/19/20 22:17 11/19/20 23:17 11/20/20 00:00 Temperature 98.4 F Pulse Rate [Left] 85 Respiratory Rate 12 12 20 Blood Pressure [Left Arm] 173/79 O2 Sat by Pulse Oximetry 96 11/20/20 04:00 11/20/20 08:00 11/20/20 12:00 Temperature 97.9 F 97.4 F L 97.6 F Pulse Rate [Left] 85 92 H 89 Respiratory Rate 21 18 18 Blood Pressure [Left Arm] 158/70 195/87 176/90 O2 Sat by Pulse Oximetry 98 98 94 L 11/20/20 16:00 11/20/20 20:00 11/20/20 22:33 Temperature 97.6 F 98.7 F Pulse Rate [Left] 83 96 H Respiratory Rate 20 20 12 Blood Pressure [Left Arm] 189/83 168/77 O2 Sat by Pulse Oximetry 96 95 11/20/20 23:33 11/21/20 00:00 11/21/20 04:00 Temperature 98 F 98.2 F Pulse Rate [Left] 85 93 H Respiratory Rate 12 20 21 Blood Pressure [Left Arm] 146/75 155/72 O2 Sat by Pulse Oximetry 95 11/21/20 08:00 11/21/20 12:00 11/21/20 16:00 Temperature 97.8 F 97.8 F 98.9 F Pulse Rate [Left] 92 H 86 94 H Respiratory Rate 20 20 20 Blood Pressure [Left Arm] 183/84 173/74 180/81 O2 Sat by Pulse Oximetry 100 94 L 96 11/21/20 20:00 11/21/20 21:00 11/21/20 22:00 Temperature 98.2 F Pulse Rate [Left] 97 H Respiratory Rate 16 16 16 Blood Pressure [Left Arm] 189/81 O2 Sat by Pulse Oximetry 94 L 11/22/20 00:00 11/22/20 04:00 11/22/20 08:00 Temperature 98.3 F 97.5 F L 98.3 F Pulse Rate [Left] 90 81 86 Respiratory Rate 18 12 18 Blood Pressure [Left Arm] 167/76 165/77 180/84 O2 Sat by Pulse Oximetry 97 99 96 Labs: Laboratory Last Values WBC 4.3 X10^3/uL (3.6-10.0) 11/22/20 05:50 RBC 2.68 X10^6/uL (3.5-5.4) L 11/22/20 05:50 Hgb 8.9 g/dL (12.0-16.0) L 11/22/20 05:50 Hct 26.4 % (36.0-47.0) L 11/22/20 05:50 MCV 98.7 fL (80.0-100.0) 11/22/20 05:50 MCH 33.2 pg (27.0-34.0) 11/22/20 05:50 MCHC 33.6 g/dL (33.0-35.0) 11/22/20 05:50 RDW 15.5 % (11.6-16.5) 11/22/20 05:50 Plt Count 174 X10^3/uL (150.0-450.0) 11/22/20 05:50 MPV 9.8 fL (7.4-11.0) 11/22/20 05:50 Neut % (Auto) 60.6 % (42.0-75.0) 11/22/20 05:50 Lymph % (Auto) 24.0 % (21.0-51.0) 11/22/20 05:50 Cass % (Auto) 7.6 % (0.0-13.0) 11/22/20 05:50 Eos % (Auto) 7.3 % (0.9-2.9) H 11/22/20 05:50 Baso % (Auto) 0.5 % (0.2-1.0) 11/22/20 05:50 Neut # (Auto) 2.6 x10^3/uL (2.2-4.8) 11/22/20 05:50 Lymph # (Auto) 1.0 X10^3/uL (1.3-2.9) L 11/22/20 05:50 Cass # (Auto) 0.3 x10^3/uL (0.3-0.8) 11/22/20 05:50 Eos # (Auto) 0.3 x10^3/uL (0.0-0.2) H 11/22/20 05:50 Baso # (Auto) 0.0 X10^3/uL (0.0-0.1) 11/22/20 05:50 Absolute Nucleated RBC 0.1 /100WBC 11/22/20 05:50 Sodium 137 mmol/L (136-145) 11/22/20 05:50 Corrected Sodium 140 mmol/L (136-145) 11/22/20 05:50 Potassium 4.1 mmol/L (3.5-5.1) 11/22/20 05:50 Chloride 105 mmol/L (98-107) 11/22/20 05:50 Carbon Dioxide 22.0 mmol/L (21-32) 11/22/20 05:50 BUN 16 mg/dL (7-18) 11/22/20 05:50 Creatinine 1.29 mg/dL (0.55-1.02) H 11/22/20 05:50 Est GFR (MDRD) Af Amer 52 (>60) L 11/22/20 05:50 Est GFR (MDRD) Non-Af 43 (>60) L 11/22/20 05:50 Glucose 221 mg/dL (65-99) H 11/22/20 05:50 POC Glucose (mg/dL) 190 mg/dL (65-99) H 11/22/20 05:12 Calcium 8.6 mg/dL (8.5-10.1) 11/22/20 05:50 Corrected Calcium TNP 11/22/20 05:50 Magnesium 1.9 mg/dL (1.7-2.9) 11/20/20 05:32 Total Bilirubin 0.40 mg/dL (0.2-1.0) 11/22/20 05:50 AST 33 Units/L (15-37) 11/22/20 05:50 ALT 30 Units/L (12-78) 11/22/20 05:50 Alkaline Phosphatase 82 Units/L (46-116) 11/22/20 05:50 Total Protein 7.9 g/dL (6.4-8.2) 11/22/20 05:50 Albumin 3.4 g/dL (3.4-5.0) 11/22/20 05:50 Globulin 4.5 g/dL (2.5-4.5) 11/22/20 05:50 Albumin/Globulin Ratio 0.8 Ratio (1.1-2.1) L 11/22/20 05:50 Specimen Type Clean catch urine 11/18/20 11:11 Urine Color Yellow (YELLOW) 11/18/20 11:11 Urine Appearance Clear (CLEAR) 11/18/20 11:11 Urine pH 5.0 (5.0 - 8.0) 11/18/20 11:11 Ur Specific Fonda 1.020 (1.000-1.030) 11/18/20 11:11 Urine Protein Negative (NEGATIVE) 11/18/20 11:11 Urine Glucose (UA) 1+ (NEGATIVE) 11/18/20 11:11 Urine Ketones Negative (NEGATIVE) 11/18/20 11:11 Urine Occult Blood Negative (NEGATIVE) 11/18/20 11:11 Urine Nitrite Negative (NEGATIVE) 11/18/20 11:11 Urine Bilirubin Negative (NEGATIVE) 11/18/20 11:11 Urine Urobilinogen Normal (NORMAL) 11/18/20 11:11 Ur Leukocyte Esterase Negative (NEGATIVE) 11/18/20 11:11 Stool Description 25g mucoid unformed 11/18/20 04:42 Stool Description 25g mucoid unformed 11/18/20 04:42 Stl Occult Blood (IFOB) Positive (NEGATIVE) A 11/18/20 04:42 Stool for White Cells Positive (NEGATIVE) A 11/18/20 04:42 Stl C. diff Tox B Gene Negative (NEGATIVE) 11/18/20 04:42 Stl C. diff [id number] Negative (NEGATIVE) 11/18/20 04:42 Stool H. pylori Ag Negative (NEGATIVE) 11/18/20 04:42 SARS-CoV-2 (PCR) Cancelled 11/17/20 18:45 Cryptosporid parvum Ag Negative (NEGATIVE) 11/18/20 04:42 Giardia lamblia Ag Negative (NEGATIVE) 11/18/20 04:42 Influenza Type A (PCR) Cancelled 11/17/20 18:45 Influenza Type B (PCR) Cancelled 11/17/20 18:45 RSV (PCR) Cancelled 11/17/20 18:45 SARS CoV-2 RNA Rapid JON Negative (NEGATIVE) 11/17/20 18:45 Reason For Visit: DEHYDRATION, N/V, DIARRHEA, WEAKNESS Discharge Date Discharge Date: 11/22/20 Discharge Diagnosis All Active Problems (Updated 11/24/20 @ 13:12 by Summer Godoy) Pulmonary nodule (Chronic) Colitis (Acute) History of thyroidectomy (Chronic) Hx of goiter (Chronic) History of breast cancer (Chronic) Hypertension (Chronic) Diabetes mellitus, type 2 (Chronic) Hypothyroidism (Chronic) History of anemia (Chronic) Arthritis (Chronic) S/P laparoscopic cholecystectomy (Chronic) Hyperglycemia (Chronic) Anemia (Chronic) Status post mastectomy (Chronic) Lung nodule, multiple (Chronic) Dehydration (Acute) Acute on chronic renal failure (Acute) Intractable diarrhea (Acute) Abdominal pain (Acute) Plan of Treatment: Continue with present treatment and follow up plan. Pt is to keep follow up appointment as instructed and take medications as ordered. Discharge Medications Discharge Medications: No Known Drug Allergies Allergy (Verified 09/21/17 07:49) CONTINUE taking the following medications Levemir U-100 Insulin 26 units SC BID 11/18/20 [History] aspirin 81 mg PO DAILY 11/18/20 [History] baclofen 5 mg PO QHS 11/18/20 [History] diphenoxylate-atropine 1 tab PO TID 11/18/20 [History] folic acid 1 mg PO DAILY 11/18/20 [History] insulin aspart U-100 [Novolog Flexpen U-100 Insulin] unit SUBCUT 11/18/20 [History] ondansetron 8 mg PO TID PRN 11/18/20 [History] pregabalin 50 mg PO QHS 11/18/20 [History] New Prescriptions ciprofloxacin HCl 500 mg PO BID 5 Days #10 tab 11/22/20 [Rx] Follow up and Referral Follow Up: 1 Week (PCP) Discharge Disposition Discharge Disposition: Home Discharge Condition: Stable Discharge Plan Discharge Plan Hospital Course: Ms. Burris is a 75y/o female with a PMH of anemia, CAD, CHF, HLD, HTN, COPD, PUD, CKD and DM presesented with weakness, abdominal pain and diarrhea. She stated that her stools were black and tarry. She has severe anemia, recieved 2 units of PRBC last week due to Hgb being 7.9. She continued to have weakness and felt dizzy so she was admitted for further evaluation. On admission, her Hgb 9.2, plt 116, Cr 2.88. Stool studies showed positive occult blood and WBCs. COVID test was ngative. CTAP showed gastroenteritis/colitis. Patient was started on IV Cipro and hydration with NS. Her labs and electrolytes were monitored daily and replaced as needed. Patient's hgb remained stable and she did not require blood transfusions. She was tolerated PO intake and her diarrhea had slowed down. She was stable for discharge. Her hgb on discharged was 8.9. Patient will f/u with PCP as scheduled. Patient Disposition: 01 HOME, SELF-CARE Condition: Stable Health Concerns: Post Hospitalization: new medications and changes needed to prevent readmission or further decline. Pt educated and given instructions on all concerns. Care Plan Goals: Problem: Fluid Volume Deficit Goal: Maintain/Improved Adequate hydration. Instructions: Follow provided instructions. Follow up with primary physician as directed. Contact primary care physician or report to the closest Emergency Room if condition worsens. Plan of Treatment: Continue with present treatment and follow up plan. Pt is to keep follow up appointment as instructed and take medications as ordered. Prescriptions: New ciprofloxacin HCl 500 mg tablet 500 mg PO BID 5 Days Qty: 10 RF: 0 Continued diphenoxylate-atropine 2.5-0.025 mg tablet 1 tab PO TID RF: 0 ondansetron 8 mg tablet,disintegrating 8 mg PO TID PRNRF: 0 baclofen 10 mg tablet 5 mg PO QHS RF: 0 folic acid 1 mg Tablet 1 mg PO DAILY RF: 0 aspirin 81 mg Tablet 81 mg PO DAILY RF: 0 pregabalin 50 mg Capsule 50 mg PO QHS RF: 0 Levemir U-100 Insulin 100 unit/mL solution 26 units SC BID RF: 0 insulin aspart U-100 [Novolog Flexpen U-100 Insulin] 100 unit/mL (3 mL) insulin pen SUBCUT RF: 0 atorvastatin [Lipitor] 40 mg Tablet 40 mg PO HS RF: 0 anastrozole [Arimidex] 1 mg Tablet 1 mg PO DAILY RF: 0 clonazepam [Klonopin] 0.5 mg Tablet 0.5 mg PO BID PRN (Reason: Anxiety) RF: 0 cyanocobalamin (vitamin B-12) 1,000 mcg/mL Solution 1,000 mcg IM MONTHLY RF: 0 ferrous sulfate 325 mg (65 mg iron) Tablet 325 mg PO BID RF: 0 uaqedbpinf-qokfpuh-lvknpmcl 50-325-40 mg Capsule 1 cap PO BID PRN (Reason: Headache) RF: 0 furosemide [Lasix] 20 mg Tablet 40 mg PO BID PRNRF: 0 ergocalciferol (vitamin D2) [Vitamin D2] 50,000 unit Capsule 50,000 unit PO QWEEK RF: 0 Artificial Tears (PF) Dropperette 2 drp OPHTHALMIC (EYE) DAILY RF: 0 fenofibrate nanocrystallized [Triglide] 160 mg Tablet 160 mg PO QHS RF: 0 Breo Ellipta 100-25 mcg/dose Blister With Device 1 inh INHALATION BID RF: 0 levothyroxine 175 mcg Tablet 150 mcg PO DAILY RF: 0 ipratropium-albuterol 0.5 mg-3 mg(2.5 mg base)/3 mL Solution For Nebulization 3 ml INHALATION Q6H PRN (Reason: Wheezing) RF: 0 pantoprazole [Protonix] 40 mg Tablet,Delayed Release (Dr/Ec) 40 mg PO QHS RF: 0 ropinirole 0.5 mg tablet 0.5 mg PO HS RF: 0 promethazine 25 mg Tablet 25 mg PO Q6H PRNRF: 0 lisinopril-hydrochlorothiazide 10-12.5 mg Tablet 1 tab PO DAILY RF: 0 zolpidem 10 mg tablet 10 mg PO QHS PRN (Reason: insomnia) RF: 0 glipizide 10 mg Tablet 10 mg PO BID RF: 0 Orders to Discharge Patient Discharge Orders: Discharge (Routine); Ordered 11/22/20 Ordered By: Summer Godoy Follow ups/Referrals Follow ups/Referrals: David Victor [Primary Care Provider] - 1 WEEK Instructions Instructions: Viral Gastroenteritis, Adult, Tszh-[id number], Chronic Kidney Disea se, Adult, Nejx-gc-Cjak, Hypertension, Srdg-of-Bvvm, Heart Failure, Jtmj-pr-Itkm, Colitis, Dehydration, Elderly, Stim-xf-Mfvz, Diarrhea, Adult, Mebc-dx-Paje, Diabetes Mellitus and Nutrition Stand Alone Forms: Excuse From Work or School, Precautions for COVID19, Patient Portal, Social Distancing
[2020-11-22] MEDS: HumuLIN R SUBCUT PRN (11:09)
[2020-11-22] MEDS: TYLENOL 325 MG TAB PO PRN (11:12)
== END 2020-11-22 12:50 | disposition home or self-care (01) ==
LOC: OBS → MED/SURG 11-18 14:30
PROVIDERS: ADMIT Internal Medicine; ATTEND Internal Medicine
DX: Z91.81 History of falling; K52.89 Other specified noninfective gastroenteritis and colitis; J44.9 Chronic obstructive pulmonary disease, unspecified; R26.89 Other abnormalities of gait and mobility; R53.1 Weakness; E86.0 Dehydration; E11.65 Type 2 diabetes mellitus with hyperglycemia; D50.0 Iron deficiency anemia secondary to blood loss (chronic); K92.1 Melena; N17.8 Other acute kidney failure; Z20.822 Contact with and (suspected) exposure to COVID-19; R19.7 Diarrhea, unspecified; N18.30 Chronic kidney disease, stage 3 unspecified; I12.9 Hypertensive chronic kidney disease with stage 1 through stage 4 chronic kidney disease, or unspecified chronic kidney disease; R10.84 Generalized abdominal pain; R91.1 Solitary pulmonary nodule; E78.2 Mixed hyperlipidemia; I25.10 Atherosclerotic heart disease of native coronary artery without angina pectoris; K21.9 Gastro-esophageal reflux disease without esophagitis

== ENCOUNTER 2020-12-16 08:01 | Observation (INO) ==
[2020-12-16 11:46] LABS: BASOPHILS % (AUTO) 0.4 % (0.2-1.0); EOSINOPHILS # (AUTO) 0.4 x10^3/uL (0.0-0.2); EOSINOPHILS % (AUTO) 10.4 % (0.9-2.9); HEMATOCRIT 24.7 % (36.0-47.0); HEMOGLOBIN 8.2 g/dL (12.0-16.0); LYMPHOCYTES % (AUTO) 26.9 % (21.0-51.0); MEAN CORPUSCULAR HEMOGLOBIN 35.2 pg (27.0-34.0); MEAN CORPUSCULAR HGB CONC 33.1 g/dL (33.0-35.0); MEAN CORPUSCULAR VOLUME 106.4 fL (80.0-100.0); MEAN PLATELET VOLUME 9.8 fL (7.4-11.0); MONOCYTES # (AUTO) 0.2 x10^3/uL (0.3-0.8); MONOCYTES % (AUTO) 6.9 % (0.0-13.0); NEUTROPHILS % (AUTO) 55.4 % (42.0-75.0); PLATELET COUNT 168 X10^3/uL (150.0-450.0); RED BLOOD COUNT 2.32 X10^6/uL (3.5-5.4); RED CELL DISTRIBUTION WIDTH 18.4 % (11.6-16.5); WHITE BLOOD COUNT 3.6 X10^3/uL (3.6-10.0)
[2020-12-16 11:50] LABS: ALANINE AMINOTRANSFERASE 45 Units/L (12-78); ALBUMIN 3.6 g/dL (3.4-5.0); ALKALINE PHOSPHATASE 98 Units/L (46-116); ASPARTATE AMINO TRANSFERASE 30 Units/L (15-37); BLOOD UREA NITROGEN 46 mg/dL (7-18); CALCIUM 9.5 mg/dL (8.5-10.1); CARBON DIOXIDE 25.8 mmol/L (21-32); CHLORIDE 101 mmol/L (98-107); COR NA(FOR HYPERGLY) 145 mmol/L (136-145); CREATININE 1.91 mg/dL (0.55-1.02); SODIUM 135 mmol/L (136-145); TOTAL PROTEIN 7.8 g/dL (6.4-8.2); eGFR NON BLACK RACES 27 (>60)
[2020-12-16 12:08] LABS: ANISOCYTOSIS SLIGHT; PLATELET MORPHOLOGY COMMENT NORMAL (NORMAL)
[2020-12-16] MEDS ORDERED: DUONEB 0.5 MG/3 MG (3 mL) NEB PRN (12:44)
[2020-12-16] MEDS: HumuLIN R SUBCUT PRN ×2 (12:50→17:07)
[2020-12-16] MEDS: NS 1000 ML 1,000 ML IV SCH (12:51)
[2020-12-16 13:14] LABS: BILIRUBIN,URINE NEGATIVE (NEGATIVE); BLOOD/HEMOGLOBIN,URINE NEGATIVE (NEGATIVE); GLUCOSE, URINE 4+ (NEGATIVE); KETONES,URINE NEGATIVE (NEGATIVE); LEUKOCYTE ESTERASE ,URINE NEGATIVE (NEGATIVE); NITRITES,URINE NEGATIVE (NEGATIVE); PROTEIN,URINE NEGATIVE (NEGATIVE); UROBILINOGEN,URINE NORMAL (NORMAL)
[2020-12-16 13:23] LABS: APPEARANCE,URINE CLEAR (CLEAR); COLOR,URINE YELLOW (YELLOW)
[2020-12-16 18:02] LABS: BASOPHILS % (AUTO) 0.9 % (0.2-1.0); EOSINOPHILS # (AUTO) 0.3 x10^3/uL (0.0-0.2); EOSINOPHILS % (AUTO) 9.4 % (0.9-2.9); HEMATOCRIT 23.5 % (36.0-47.0); HEMOGLOBIN 7.9 g/dL (12.0-16.0); LYMPHOCYTES # (AUTO) 1.1 X10^3/uL (1.3-2.9); LYMPHOCYTES % (AUTO) 29.9 % (21.0-51.0); MEAN CORPUSCULAR HEMOGLOBIN 35.6 pg (27.0-34.0); MEAN CORPUSCULAR HGB CONC 33.5 g/dL (33.0-35.0); MEAN CORPUSCULAR VOLUME 106.3 fL (80.0-100.0); MEAN PLATELET VOLUME 9.7 fL (7.4-11.0); MONOCYTES # (AUTO) 0.3 x10^3/uL (0.3-0.8); MONOCYTES % (AUTO) 7.5 % (0.0-13.0); NEUTROPHILS # (AUTO) 1.9 x10^3/uL (2.2-4.8); NEUTROPHILS % (AUTO) 52.3 % (42.0-75.0); PLATELET COUNT 167 X10^3/uL (150.0-450.0); RED BLOOD COUNT 2.21 X10^6/uL (3.5-5.4); RED CELL DISTRIBUTION WIDTH 18.2 % (11.6-16.5); WHITE BLOOD COUNT 3.7 X10^3/uL (3.6-10.0)
[2020-12-16 18:23] LABS: ANISOCYTOSIS SLIGHT; PLATELET MORPHOLOGY COMMENT NORMAL (NORMAL)
[2020-12-16] MEDS: SNACK - Diabetic Appropriate PO SCH (20:11)
[2020-12-16] MEDS ORDERED: AMBIEN PO SCH (21:00)
[2020-12-16] MEDS ORDERED: STERILE WATER IRRIGATION IR ONE (21:12)
[2020-12-16] MEDS: PULMICORT NEB TX 0.5 MG NEB SCH (21:15)
[2020-12-16] MEDS: PROVENTIL NEB TX 0.083% 2.5MG/ 3ML NEB SCH (21:15)
[2020-12-16] MEDS: AMBIEN PO PRN (21:18)
[2020-12-16] MEDS: TYLENOL 500 MG TAB EXTRA STRENGTH PO PRN (21:18)
[2020-12-17] MEDS: NS 1000 ML 1,000 ML IV SCH ×2 (00:59→15:10)
[2020-12-17] MEDS: HumuLIN R SUBCUT PRN ×4 (06:03→21:10)
[2020-12-17] MEDS ORDERED: FIORICET TAB PO PRN (08:20)
[2020-12-17] MEDS ORDERED: AMBIEN PO PRN (08:20)
[2020-12-17] MEDS ORDERED: KLONOPIN TAB 0.5 MG PO PRN (08:20)
[2020-12-17] MEDS ORDERED: ZOFRAN TAB 4 MG PO PRN (08:20)
[2020-12-17 08:45] VITALS: BMI 26.6
[2020-12-17] MEDS ORDERED: GLUCOTROL PO SCH (09:00)
[2020-12-17] MEDS ORDERED: PATIENT'S HOME MEDICATION PO SCH (09:00)
--- NOTE | 2020-12-17 09:04 | DR.UPDATE ---
H&P Update History and Physical Update: History and Physical reviewed and patient examined. Changes noted: Yes with the following: HAD A TELEMEDICINE VISIT YESTERDAY. SHE COMPLAINED OF GENERALIZED WEAKNESS, SHORTNESS OF BREATH AT TIMES, AND INCREASED BLOOD GLUCOSE LEVELS. SHE REPORTS THAT SYMPTOMS HAVE BEEN PRESENT FOR ABOUT A WEEK AND HAVE PROGRESSIVELY GOTTEN WORSE. SHE IS CURRENTLY ON NOVOLOG, LEVEMIR 30 UNITS SC BID, AND GLIPIZIDE 10MG PO BID FOR HER DIABETES. OUTPATIENT LABS WERE OBTAINED AND REVEALED A HGB OF 7.5, A POTASSIUM OF 5.7, SODIUM OF 135, AND GFR OF 29. SHE WAS ADMITTED TO THE HOSPITAL FOR FURTHER EVALUATION AND TREATMENT OF ANEMIA, DEHYDRATION, AND HYPERKALEMIA. ON ARRIVAL TO THE HOSPITAL, HER VITALS WERE 98.2-80-18-100%-164/71. LABS WERE OBTAINED. ABNORMAL LAB VALUES INCLUDE THE FOLLOWING: RBC 2.32, HGB 8.2, HCT 24.7, SODIUM 135, POTASSIUM 7.1, BUN 46, CREATININE 1.91, GLUCOSE 516. URINALYSIS WAS OBTAINED AND IS UNREMARKABLE. SHE WAS STARTED ON NORMAL SALINE AT 75 ML/HR, HUMULIN R SLIDING SCALE, DUONEBS Q6H PRN, PROVENTIL NEBS BID, PULMICORT NEBS BID, AMBIEN 10MG PH HS PRN, AND HER HOME MEDICATIONS WERE RESUMED. WE PLAN TO TYPE & SCREEN, CROSSMATCH, AND TRANSFUSE TWO UNITS OF PRBC. OTHERWISE, WE WILL FOLLOW UP WITH AM LABS AND CONTINUE TO MONITOR. TIME SPENT ON CLINICAL ASSESSME NT, REVIEWING LABS AND IMAGING, DECISION MAKING, AND DOCUMENTATION GREATER THAN 75 MINUTES. H&P Reviewed: Yes Patient was examined?: Yes
[2020-12-17] MEDS: PULMICORT NEB TX 0.5 MG NEB SCH ×2 (09:17→20:19)
[2020-12-17] MEDS: PATIENT'S HOME MEDICATION INH SCH (09:17)
[2020-12-17] MEDS: PROVENTIL NEB TX 0.083% 2.5MG/ 3ML NEB SCH ×2 (09:17→20:19)
[2020-12-17] MEDS ORDERED: PROCRIT or EPOGEN VIAL 10,000 UNITS SC ONE (09:28)
[2020-12-17] MEDS: ARTIFICIAL TEARS DROPS OP SCH (09:55)
--- NOTE | 2020-12-17 09:58 | PCM.PROG ---
Progress Note - Progress Note for Day of Date of Exam: 12/17/20 - Subjective Subjective: IS BEING TREATED FOR ANEMIA, DEHYDRATION, AND HYPERKALEMIA. TODAY, SHE IS ALERT AND ORIENTED, SITTING UP IN THE CHAIR ON MORNING ROUNDS. SHE CONTINUES WITH COMPLAINTS OF SEVERE GENERALIZED WEAKNESS AND SHORTNESS OF BREATH AT TIMES. SHE DENIES IMPROVEMENT IN SYMPTOMS SINCE ADMISSION. ON EXAMINATION, HEART IS REGULAR IN RATE AND RHYTHM. BILATERAL LUNGS ARE NOTED WITH DIMINISHED LUNG SOUNDS THROUGHOUT. ABDOMEN IS ROUND, SOFT, AND NON-TENDER WITH NORMAL BOWEL SOUNDS NOTED IN ALL QUADRANTS. HER VITALS THIS MORNING ARE: 98.3-82-18-99%-142/65. LABS WERE OBTAINED. ABNORMAL LAB VALUES INCLUDE THE FOLLOWING: RBC 2.23, HGB 7.8, HCT 23.8, POTASSIUM 5.8, BUN 35, CREATININE 1.55, GLUCOSE 360. SHE IS CURRENTLY RECEIVING NORMAL SALINE AT 75 ML/HR, HUMULIN R SLIDING SCALE, DUONEBS Q6H PRN, PROVENTIL NEBS BID, PULMICORT NEBS BID, AMBIEN 10MG PH HS PRN, AND HER HOME MEDICATIONS WERE RESUMED. TODAY, WE WILL OBTAIN A CHEST XRAY. WE WILL ADMINISTER PROCRIT 5,000UNITS SC X 1 DOSE. OTHERWISE, WE WILL CONTINUE WITH CURRENT PLAN OF CARE TODAY. WE PLAN TO FOLLOW UP WITH AM LABS AND CONTINUE TO MONITOR. TIME SPENT ON CLINICAL ASSESSMENT, REVIEWING LABS AND IMAGING, DECISION MAKING, AND DOCUMENTATION GREATER THAN 45 MINUTES. - Past Medical Family Social History Past Med/Fam/Surg Hx: No changes since H&P Allergies: Allergies No Known Drug Allergies Allergy (Verified 09/21/17 07:49) - Review of Systems ROS: No change since H&P - Vital Signs and I&O's Vital Signs: Temperature 98.3 F Pulse Rate [Bilateral] 82 Pulse Rate 84 Respiratory Rate 18 Blood Pressure [Right Calf] 142/65 Blood Pressure [Left Calf] 114/56 Blood Pressure [Right Arm] 124/66 Blood Pressure [Left Arm] 126/61 O2 Sat by Pulse Oximetry 94 Intake and Output: Intake & Output 12/14/20 12/15/20 12/16/20 12/17/20 11:59 11:59 11:59 11:59 Intake Total 2 / 2282 Balance 228 / 228 - Physical Exam Oriented: Normal Eyes: Normal Ear: Normal Nose: Normal Throat: Normal Respiratory: Generalized, Diminished Cardiovascular: Normal : Normal Auscultation: Bowel Sounds: Normal Palpation: Normal Tenderness: Normal Skin: Normal Musculoskeletal: Normal Psychiatric: Normal Mood Description: Calm Affect: Normal Speech Pattern: Clear, Appropriate - Laboratory and Diagnostics Result Diagrams: 12/18/20 16:57 12/18/20 05:35 Labs: Laboratory WBC 3.7 X10^3/uL (3.6-10.0) 12/16/20 17:47 RBC 2.21 X10^6/uL (3.5-5.4) L 12/16/20 17:47 Hgb 7.9 g/dL (12.0-16.0) L 12/16/20 17:47 Hct 23.5 % (36.0-47.0) L 12/16/20 17:47 MCV 106.3 fL (80.0-100.0) H 12/16/20 17:47 MCH 35.6 pg (27.0-34.0) H 12/16/20 17:47 MCHC 33.5 g/dL (33.0-35.0) 12/16/20 17:47 RDW 18.2 % (11.6-16.5) H 12/16/20 17:47 Plt Count 167 X10^3/uL (150.0-450.0) 12/16/20 17:47 Plt Count Comment Adequate (ADEQUATE) 12/16/20 17:47 MPV 9.7 fL (7.4-11.0) 12/16/20 17:47 Neut % (Auto) 52.3 % (42.0-75.0) 12/16/20 17:47 Lymph % (Auto) 29.9 % (21.0-51.0) 12/16/20 17:47 Bailey % (Auto) 7.5 % (0.0-13.0) 12/16/20 17:47 Eos % (Auto) 9.4 % (0.9-2.9) H 12/16/20 17:47 Baso % (Auto) 0.9 % (0.2-1.0) 12/16/20 17:47 Neut # (Auto) 1.9 x10^3/uL (2.2-4.8) L 12/16/20 17:47 Lymph # (Auto) 1.1 X10^3/uL (1.3-2.9) L 12/16/20 17:47 Bailey # (Auto) 0.3 x10^3/uL (0.3-0.8) 12/16/20 17:47 Eos # (Auto) 0.3 x10^3/uL (0.0-0.2) H 12/16/20 17:47 Baso # (Auto) 0.0 X10^3/uL (0.0-0.1) 12/16/20 17:47 Absolute Nucleated RBC 0.0 /100WBC 12/16/20 17:47 Plt Morphology Comment Normal (NORMAL) 12/16/20 17:47 RBC Morphology Abnormal (NORMAL) A 12/16/20 17:47 Anisocytosis Slight A 12/16/20 17:47 Macrocytosis 1+ A 12/16/20 17:47 Sodium 135 mmol/L (136-145) L 12/16/20 11:20 Corrected Sodium 145 mmol/L (136-145) 12/16/20 11:20 Potassium 7.1 mmol/L (3.5-5.1) H* 12/16/20 11:20 Chloride 101 mmol/L (98-107) 12/16/20 11:20 Carbon Dioxide 25.8 mmol/L (21-32) 12/16/20 11:20 BUN 46 mg/dL (7-18) H 12/16/20 11:20 Creatinine 1.91 mg/dL (0.55-1.02) H 12/16/20 11:20 Est GFR (MDRD) Af Amer 33 (>60) L 12/16/20 11:20 Est GFR (MDRD) Non-Af 27 (>60) L 12/16/20 11:20 Glucose 516 mg/dL (65-99) H* 12/16/20 11:20 POC Glucose (mg/dL) 217 mg/dL (65-99) H 12/17/20 05:23 Calcium 9.5 mg/dL (8.5-10.1) 12/16/20 11:20 Corrected Calcium TNP 12/16/20 11:20 Total Bilirubin 0.40 mg/dL (0.2-1.0) 12/16/20 11:20 AST 30 Units/L (15-37) 12/16/20 11:20 ALT 45 Units/L (12-78) 12/16/20 11:20 Alkaline Phosphatase 98 Units/L (46-116) 12/16/20 11:20 Total Protein 7.8 g/dL (6.4-8.2) 12/16/20 11:20 Albumin 3.6 g/dL (3.4-5.0) 12/16/20 11:20 Globulin 4.2 g/dL (2.5-4.5) 12/16/20 11:20 Albumin/Globulin Ratio 0.9 Ratio (1.1-2.1) L 12/16/20 11:20 Specimen Type Clean catch urine 12/16/20 13:05 Urine Color Yellow (YELLOW) 12/16/20 13:05 Urine Appearance Clear (CLEAR) 12/16/20 13:05 Urine pH 8.0 (5.0 - 8.0) 12/16/20 13:05 Ur Specific [place] 1.010 (1.000-1.030) 12/16/20 13:05 Urine Protein Negative (NEGATIVE) 12/16/20 13:05 Urine Glucose (UA) 4+ (NEGATIVE) 12/16/20 13:05 Urine Ketones Negative (NEGATIVE) 12/16/20 13:05 Urine Occult Blood Negative (NEGATIVE) 12/16/20 13:05 Urine Nitrite Negative (NEGATIVE) 12/16/20 13:05 Urine Bilirubin Negative (NEGATIVE) 12/16/20 13:05 Urine Urobilinogen Normal (NORMAL) 12/16/20 13:05 Ur Leukocyte Esterase Negative (NEGATIVE) 12/16/20 13:05 Stool Description Fob tube 12/16/20 18:40 Stl Occult Blood (IFOB) Negative (NEGATIVE) 12/16/20 18:40 SARS CoV-2 RNA Rapid JON Negative (NEGATIVE) 12/16/20 09:00 Blood Type O POSITIVE 12/16/20 11:20 Antibody Screen Negative 12/16/20 11:20 Crossmatch See Detail 12/16/20 11:20 - Plan (1) Anemia Status: Chronic Qualifiers: Anemia type: iron deficiency Iron deficiency anemia type: chronic blood loss Qualified Code(s): D50.0 - Iron deficiency anemia secondary to blood loss (chronic) (2) Dehydration Status: Acute (3) Hyperkalemia Status: Acute (4) Hypertension Status: Chronic (5) Diabetes mellitus, type 2 Status: Chronic Qualifiers: Diabetes mellitus residential insulin use: unspecified residential insulin use status Diabetes mellitus complication status: with hyperglycemia Qualified Code(s): E11.65 - Type 2 diabetes mellitus with hyperglycemia
[2020-12-17] MEDS: NEURONTIN CAP 100 MG PO SCH ×2 (10:00→20:29)
[2020-12-17] MEDS: NORVASC TAB 5 MG PO SCH (10:00)
[2020-12-17] MEDS: SYNTHROID 150 mcg TAB PO SCH (10:00)
[2020-12-17] MEDS: FOLIC ACID TAB 1 MG PO SCH (10:00)
[2020-12-17] MEDS: ARIMIDEX PO SCH (10:01)
[2020-12-17] MEDS: LEVEMIR SC SCH ×2 (10:02→21:15)
[2020-12-17] MEDS: FERROUS GLUCONATE PO SCH ×2 (10:02→20:28)
[2020-12-17 10:12] LABS: BASOPHILS % (AUTO) 0.6 % (0.2-1.0); EOSINOPHILS # (AUTO) 0.4 x10^3/uL (0.0-0.2); EOSINOPHILS % (AUTO) 11.1 % (0.9-2.9); HEMATOCRIT 23.8 % (36.0-47.0); HEMOGLOBIN 7.8 g/dL (12.0-16.0); LYMPHOCYTES # (AUTO) 0.8 X10^3/uL (1.3-2.9); LYMPHOCYTES % (AUTO) 21.9 % (21.0-51.0); MEAN CORPUSCULAR HEMOGLOBIN 35.2 pg (27.0-34.0); MEAN CORPUSCULAR VOLUME 106.7 fL (80.0-100.0); MEAN PLATELET VOLUME 9.9 fL (7.4-11.0); MONOCYTES # (AUTO) 0.3 x10^3/uL (0.3-0.8); MONOCYTES % (AUTO) 7.1 % (0.0-13.0); NEUTROPHILS # (AUTO) 2.2 x10^3/uL (2.2-4.8); NEUTROPHILS % (AUTO) 59.3 % (42.0-75.0); PLATELET COUNT 169 X10^3/uL (150.0-450.0); RED BLOOD COUNT 2.23 X10^6/uL (3.5-5.4); RED CELL DISTRIBUTION WIDTH 18.3 % (11.6-16.5); WHITE BLOOD COUNT 3.7 X10^3/uL (3.6-10.0)
[2020-12-17 10:22] LABS: ALANINE AMINOTRANSFERASE 40 Units/L (12-78); ALBUMIN 3.5 g/dL (3.4-5.0); ALKALINE PHOSPHATASE 86 Units/L (46-116); ASPARTATE AMINO TRANSFERASE 28 Units/L (15-37); BLOOD UREA NITROGEN 35 mg/dL (7-18); CALCIUM 8.8 mg/dL (8.5-10.1); CARBON DIOXIDE 25.4 mmol/L (21-32); CHLORIDE 106 mmol/L (98-107); COR NA(FOR HYPERGLY) 145 mmol/L (136-145); CREATININE 1.55 mg/dL (0.55-1.02); SODIUM 139 mmol/L (136-145); TOTAL PROTEIN 7.6 g/dL (6.4-8.2); eGFR NON BLACK RACES 35 (>60)
[2020-12-17 10:58] LABS: ANISOCYTOSIS 1+; HYPOCHROMASIA 1+; PLATELET MORPHOLOGY COMMENT NORMAL (NORMAL)
--- NOTE | 2020-12-17 11:22 | RAD ---
HISTORYSOBSTUDYCHEST, 1 VIEWCOMPARISONCT chest, November 20, 2020 and chest radiograph, August 20, 2019TECHNIQUEChest radiographic imaging, AP portable projection, 1 imageFINDINGSNo cardiomegaly.Mild diffuse increased interstitial markings likely represent chronic changes.No focal airspace disease.No pleural effusion.No pneumothorax.No acute osseous abnormality.Pulmonary nodules seen on the previous exam are not well delineated on the current exam.Surgical clips in the soft tissues along the right thoracic wall and along the right neck.IMPRESSIONNo imaging findings of acute cardiopulmonary disease with no significant changes when compared to the chest radiograph from August 20, 2019.Electronically signed by: Rowdy Childs (Dec 17, 2020 11:20:45)
[2020-12-17] MEDS: SNACK - Diabetic Appropriate PO SCH (20:28)
[2020-12-17] MEDS ORDERED: TRICOR TAB 160 MG PO SCH (21:00)
[2020-12-17] MEDS ORDERED: TRICOR TAB 48 MG PO SCH (21:00)
[2020-12-17] MEDS ORDERED: LYRICA CAP 50 mg PO SCH (21:00)
[2020-12-17] MEDS ORDERED: LIORESAL PO SCH (21:00)
[2020-12-17] MEDS ORDERED: PROTONIX TAB 40 MG PO SCH (21:00)
[2020-12-17] MEDS ORDERED: REQUIP PO SCH (21:00)
[2020-12-17] MEDS ORDERED: LIPITOR TAB 40 MG PO SCH (21:00)
[2020-12-17] MEDS: AMBIEN PO PRN (22:22)
[2020-12-17] MEDS: TYLENOL 500 MG TAB EXTRA STRENGTH PO PRN (22:22)
[2020-12-18] MEDS: NS 1000 ML 1,000 ML IV SCH (05:20)
[2020-12-18] MEDS: HumuLIN R SUBCUT PRN ×3 (06:06→16:20)
[2020-12-18 06:10] LABS: ALANINE AMINOTRANSFERASE 47 Units/L (12-78); ALBUMIN 3.5 g/dL (3.4-5.0); ALKALINE PHOSPHATASE 87 Units/L (46-116); ASPARTATE AMINO TRANSFERASE 30 Units/L (15-37); BLOOD UREA NITROGEN 30 mg/dL (7-18); CALCIUM 8.6 mg/dL (8.5-10.1); CARBON DIOXIDE 19.4 mmol/L (21-32); CHLORIDE 110 mmol/L (98-107); COR NA(FOR HYPERGLY) 144 mmol/L (136-145); CREATININE 1.32 mg/dL (0.55-1.02); SODIUM 141 mmol/L (136-145); TOTAL PROTEIN 7.7 g/dL (6.4-8.2); eGFR NON BLACK RACES 42 (>60)
[2020-12-18 06:11] LABS: BASOPHILS % (AUTO) 0.6 % (0.2-1.0); EOSINOPHILS # (AUTO) 0.3 x10^3/uL (0.0-0.2); EOSINOPHILS % (AUTO) 7.7 % (0.9-2.9); HEMATOCRIT 23.7 % (36.0-47.0); HEMOGLOBIN 8.1 g/dL (12.0-16.0); LYMPHOCYTES % (AUTO) 24.6 % (21.0-51.0); MEAN CORPUSCULAR HEMOGLOBIN 35.8 pg (27.0-34.0); MEAN CORPUSCULAR VOLUME 105.5 fL (80.0-100.0); MEAN PLATELET VOLUME 9.4 fL (7.4-11.0); MONOCYTES # (AUTO) 0.3 x10^3/uL (0.3-0.8); MONOCYTES % (AUTO) 7.4 % (0.0-13.0); NEUTROPHILS # (AUTO) 2.4 x10^3/uL (2.2-4.8); NEUTROPHILS % (AUTO) 59.7 % (42.0-75.0); PLATELET COUNT 180 X10^3/uL (150.0-450.0); RED BLOOD COUNT 2.25 X10^6/uL (3.5-5.4)
[2020-12-18 06:34] LABS: PLATELET MORPHOLOGY COMMENT NORMAL (NORMAL)
[2020-12-18 06:35] LABS: ANISOCYTOSIS SLIGHT
[2020-12-18] MEDS: FERROUS GLUCONATE PO SCH (08:25)
[2020-12-18] MEDS: ARIMIDEX PO SCH (08:26)
[2020-12-18] MEDS: NEURONTIN CAP 100 MG PO SCH (08:26)
[2020-12-18] MEDS: SYNTHROID 150 mcg TAB PO SCH (08:26)
[2020-12-18] MEDS: FOLIC ACID TAB 1 MG PO SCH (08:26)
[2020-12-18] MEDS: NORVASC TAB 5 MG PO SCH (08:26)
[2020-12-18] MEDS: ARTIFICIAL TEARS DROPS OP SCH (08:26)
[2020-12-18] MEDS: LEVEMIR SC SCH (08:28)
[2020-12-18] MEDS: PULMICORT NEB TX 0.5 MG NEB SCH (09:14)
[2020-12-18] MEDS: PROVENTIL NEB TX 0.083% 2.5MG/ 3ML NEB SCH (09:14)
[2020-12-18] MEDS: PATIENT'S HOME MEDICATION INH SCH (09:34)
[2020-12-18] MEDS ORDERED: NS 250 ML IV 250 ML IV ONE (10:50)
[2020-12-18 16:02] VITALS: BP 134/71
[2020-12-18 17:13] LABS: HEMATOCRIT 28.6 % (36.0-47.0); HEMOGLOBIN 9.4 g/dL (12.0-16.0)
== END 2020-12-18 18:05 | disposition home or self-care (01) ==
LOC: MED/SURG
PROVIDERS: ADMIT Internal Medicine; ATTEND Internal Medicine
DX: E11.65 Type 2 diabetes mellitus with hyperglycemia; I10 Essential (primary) hypertension; Z20.822 Contact with and (suspected) exposure to COVID-19; D50.0 Iron deficiency anemia secondary to blood loss (chronic); R26.89 Other abnormalities of gait and mobility; R53.1 Weakness; E86.0 Dehydration; R06.02 Shortness of breath; E87.5 Hyperkalemia